=== PATIENT | male | born 1940 | race Caucasian/White ===

== ENCOUNTER 2018-08-21 19:53 | Inpatient (IN) | payer OTHER ==
--- NOTE | 2018-08-21 20:59 | PDOC ---
History of Present Illness - History of Present Illness Initial Comments: 78 year old brother ([facility] Prit[facility] order) with PMH of PVD, SD on ASA), chronic bilateral foot ulcers (being seen at wound care here), and previous GI bleed (s/p clipping) presenting with dark stools for the past day. Patient denies fevers, chills, nausea, vomiting, chest pain, abdominal pain, or other symptoms but knows that last time he had this type of bleeding in his stool, he had to have a transfusion ([facility] 03/03) when he had the GI bleed in the past. Denies fevers chills, nausea, vomiting, diarrhea, constipation, abdominal pain, or other symptoms. Dr. Galvez was made aware that he is coming in. 08/21/18 21:16 <Audie Bolanos - Last Filed: 08/21/18 22:20> <Eusebia Hinton - Last Filed: 09/04/18 20:24> - General Chief Complaint: Rectal Bleed Stated Complaint: RECTAL BLEEDING Time Seen by Provider: 08/21/18 20:58 Attending Attestation - Resident Resident Name: Audie Bolanos - ED Attending Attestation I have performed the following: I have examined & evaluated the patient, The case was reviewed & discussed with the resident, I agree w/resident's findings & plan, Exceptions are as noted - HPI HPI: 08/22/18 02:54 78 yo male presented with melena head ncat eyes pale sclera neck supple lungs cta b/l cvs tachycardia abd no rebound tenderness skin chronic ulcers on both heels neuro alert and conversant - Physicial Exam PE: 08/28/18 16:19 please see complete physical exam above <Eusebia Hinton - Last Filed: 09/04/18 20:24> Past History - Suicide/Smoking/Psychosocial Hx Smoking History: Former smoker Have you smoked in the past 12 months: No If you are a former smoker, when did you quit?: 30 years ago Information on smoking cessation initiated: No Hx Alcohol Use: Yes (Occasional) Drug/Substance Use Hx: No <Audie Bolanos - Last Filed: 08/21/18 22:20> <Eusebia Hinton - Last Filed: 09/04/18 20:24> - Past Medical History Allergies/Adverse Reactions: Allergies Allergy/AdvReac Type Severity Reaction Status Date / Time codeine Allergy Intermediate Verified 08/21/18 22:44 infliximab Allergy Verified 08/22/18 01:42 Home Medications: Ambulatory Orders Atorvastatin Ca [Lipitor] 40 mg PO HS 08/21/18 Diltiazem HCl [Diltiazem 24Hr ER] 120 mg PO DAILY 08/21/18 Duloxetine HCl 20 mg PO DAILY 08/21/18 Metoprolol Tartrate 25 mg PO DAILY 08/21/18 Ranitidine [Zantac -] 150 mg PO BID 08/21/18 Tamsulosin HCl 0.4 mg PO DAILY 08/21/18 Acetaminophen [Tylenol .Regular Strength -] 650 mg PO Q6H PRN tablet 08/31/18 Albuterol 2.5/Ipratropium 0.5 [Duoneb -] 1 amp NEB RQID amp 08/31/18 Collagenase Clostridium Hist. [Santyl -] 1 applic TP DAILY tube 08/31/18 Collagenase Clostridium Hist. [Santyl -] 1 applic TP DAILY tube 08/31/18 Diphenhydramine HCl [Benadryl Capsule -] 50 mg PO Q4H PRN capsule 08/31/18 Guaifenesin Dm [Mucinex Dm -] 1 tablet PO BID tab.er.12h 08/31/18 Hydrocortisone 1% Ointment [Hytone 1% Ointment -] 1 applic TP Q6H PRN tube Mag Hydrox/Al Hydrox/Simeth [Mylanta Oral Suspension -] 30 ml PO Q6HPO cup Pantoprazole Sodium [Protonix -] 40 mg PO BID 30 Days #60 tablet.ec 08/31/18 Pregabalin [Lyrica -] 50 mg PO BID 7 Days #14 capsule MDD 100 08/31/18 Review of Systems - Review of Systems Constitutional: No: Fever, Loss of Appetite, Malaise, Night Sweats HEENTM: No: Tearing, Recent change in vision, Double Vision, Cataracts Respiratory: No: Shortness of Breath, SOB with Exertion, SOB at Rest Cardiac (ROS): No: Edema, Irregular Heart Rate, Lightheadedness, Palpitations ABD/GI: No: Constipated, Diarrhea, Nausea : No: Burning, Dysuria Integumentary: No: Bruising, Change in Color Neurological: No: Headache, Numbness Psychiatric: No: Anxiety, Depression Hematologic/Lymphatic: Yes: Anemia, Easy Bleeding <Audie Bolanos - Last Filed: 08/21/18 22:20> *Physical Exam - Vital Signs Last Vital Signs Temp Pulse Resp BP Pulse Ox 98.1 F 119 H 18 127/55 L 97 08/21/18 19:53 08/21/18 19:53 08/21/18 19:53 08/21/18 19:53 08/21/18 19:53 - Physical Exam General Appearance: Yes: Nourished, Appropriately Dressed. No: Apparent Distress HEENT: positive: EOMI, VIVIAN, Normal ENT Inspection, Normal Voice Neck: positive: Trachea midline, Normal Thyroid, Supple. negative: Tender, Rigid Respiratory/Chest: positive: Lungs Clear, Normal Breath Sounds. negative: Chest Tender, Respiratory Distress, Accessory Muscle Use Cardiovascular: positive: Regular Rhythm, Regular Rate Gastrointestinal/Abdominal: positive: Normal Bowel Sounds, Flat, Soft. negative : Tender Rectal Exam: positive: normal rectal tone, melena Lymphatic: negative: Adenopathy, Tenderness Musculoskeletal: positive: Normal Inspection Extremity: positive: Normal Capillary Refill, Normal Inspection, Normal Range of Motion. negative: Tender Integumentary: positive: Normal Color, Dry, Warm Neurologic: positive: Fully Oriented, Alert, Normal Mood/Affect, Motor Strength 5/5 <Audie Bolanos - Last Filed: 08/21/18 22:20> - Vital Signs Last Vital Signs Temp Pulse Resp BP Pulse Ox 99.4 F 113 H 21 H 103/45 L 97 08/22/18 00:27 08/22/18 00:27 08/22/18 00:27 08/22/18 00:27 08/22/18 00:27 <Eusebia Hinton - Last Filed: 09/04/18 20:24> Moderate Sedation - Procedure Monitoring Vital Signs: Procedure Monitoring Vital Signs Temperature 98.1 F 08/21/18 19:53 Pulse Rate 119 H 08/21/18 19:53 Respiratory Rate 18 08/21/18 19:53 Blood Pressure 127/55 L 08/21/18 19:53 O2 Sat by Pulse Oximetry (%) 97 08/21/18 19:53 <Audie Bolanos - Last Filed: 08/21/18 22:20> - Procedure Monitoring Vital Signs: Procedure Monitoring Vital Signs Temperature 99.4 F 08/22/18 00:27 Pulse Rate 113 H 08/22/18 00:27 Respiratory Rate 21 H 08/22/18 00:27 Blood Pressure 103/45 L 08/22/18 00:27 O2 Sat by Pulse Oximetry (%) 97 08/22/18 00:27 <Eusebia Hinton - Last Filed: 09/04/18 20:24> ED Treatment Course - LABORATORY CBC & Chemistry Diagram: 08/21/18 21:38 08/21/18 21:38 <Audie Bolanos - Last Filed: 08/21/18 22:20> - LABORATORY CBC & Chemistry Diagram: 08/31/18 05:45 08/31/18 05:45 - ADDITIONAL ORDERS Additional order review: Laboratory Results 08/21/18 21:11 Stool Occult Blood Positive - Medications Given in the ED: ED Medications Discontinued Medications Generic Name Dose Route Start Last Admin Trade Name Gaurangq PRN Reason Stop Dose Admin Morphine Sulfate 4 mg 08/21/18 22:57 08/21/18 23:10 Morphine Injection - IVPUSH 08/21/18 22:58 4 mg ONCE ONE Administration Ondansetron HCl 4 mg 08/21/18 23:57 08/22/18 00:04 Zofran Injection IVPUSH 08/21/18 23:58 4 mg ONCE ONE Administration Pantoprazole Sodium 40 mg 08/21/18 22:09 08/21/18 22:24 Protonix Iv IVPUSH 08/21/18 22:10 40 mg ONCE ONE Administration <Eusebia Hinton - Last Filed: 09/04/18 20:24> Medical Decision Making - Medical Decision Making 78 year old male with PMH of GI bleed, PAD, PVD, and SD presenting with melena. His labs returned withsevere anemia. No BRBPR but patient is slightly tachcyardic. Will transfuse two untis and admit to ICU. I spoke to Dr. Galvez about the patient. Signed out to Dr. Stewart for ICU consult admission. <Audie Bolanos - Last Filed: 08/21/18 22:20> *DC/Admit/Observation/Transfer - Discharge Dispostion Decision to Admit order: Yes <Audie Bolanos - Last Filed: 08/21/18 22:20> - Discharge Dispostion Decision to Admit order: Yes <Eusebia Hinton - Last Filed: 09/04/18 20:24> Diagnosis at time of Disposition: Melena Anemia Qualifiers: Anemia type: unspecified type Qualified Code(s): D64.9 - Anemia, unspecified GI bleed Qualifiers: GI bleed type/associated pathology: melena Qualified Code(s): K92.1 - Melena - Discharge Dispostion Condition at time of disposition: Improved
[2018-08-21 21:53] LABS: BASO % 1.5 % (0-2.0); EOS % 1.6 % (0-4.5); LYMPH % 11.4 % (8-40); MCH 31.5 pg (25.7-33.7); MCHC 33.8 g/dl (32.0-35.9); MEAN CELL VOLUME 93.1 fl (80-96); MEAN PLT VOLUME 9.6 fl (7.5-11.1); MONO % 6.7 % (3.8-10.2); NEUT % 78.8 % (42.8-82.8); PLATELET COUNT 220 K/MM3 (134-434); RBC 1.87 M/mm3 (4.00-5.60); RDW 18.4 % (11.9-15.9); WHITE BLOOD COUNT 11.9 K/mm3 (4.0-10.0)
[2018-08-21 21:59] LABS: HEMOGLOBIN 5.9 GM/dL (11.7-16.9)
[2018-08-21 22:00] LABS: HEMATOCRIT 17.4 % (35.4-49)
[2018-08-21 22:04] LABS: INR 1.19 (0.83-1.09); PROTHROMBIN TIME (PATIENT) 14.1 SEC (9.7-13.0)
[2018-08-21] MEDS ORDERED: PANTOPRAZOLE SODIUM 40 MG VIAL IVPUSH ONE (22:09)
[2018-08-21] MEDS ORDERED: PANTOPRAZOLE SODIUM 40 MG/100 ML BAG IVPB ONE (22:20)
[2018-08-21] MEDS ORDERED: morphine CARPU-JECT 4 MG/1 ML DISP.SYRIN IVPUSH ONE (22:57)
[2018-08-21] MEDS ORDERED: SODIUM CHLORIDE 1,000 ML IV SCH (23:00)
[2018-08-21] MEDS ORDERED: PANTOPRAZOLE SODIUM 40 MG VIAL IVPUSH SCH (23:00)
[2018-08-21] MEDS ORDERED: morphine SULFATE 4 MG/ML VIAL ONE (23:08)
--- NOTE | 2018-08-21 23:20 | CONSULT ---
Consult Consult Specialty:: ICU Referred by:: Grace Reason for Consultation:: Hemodynamic monitoring, severe anemia - History of Present Illness Chief Complaint: melena, brbpr, chest pain History of Present Illness: 78 yr old man with HTN, PAD, presents with 2-3 days of melena and 1 BM with bright red blood mixed w/ melena approx 2pm 08/21. Also c/o substernal chest pain nonradiating without exacerbating or alleviating factors, a/w lightheadedness lasting 1 hr at 1AM 08/21. notes increased b/l LE edema, chronic lower back pain and chronic b/l foot wound pain. denies fevers, hemoptysis, cough, diarrhea, constipation, dysuria, changes in medications, dizziness, lightheadedness, palpitations. takes ASA 81mg daily, last taken 08/20. denies any other NSAID use. Pt was in [facility] for 6wks btwn Feb-Mar 2018 admitted for nonhealing left toe ulcer that required amputation, hospital course was complicated by drop in h/h and he was found to have bleed on upper endoscopy that required clipping, as per acquaintances at bedside. pt was on eliquis and plavix at that time, which was discontinued at [place]. Since that [place] he has not had any brbpr or melena until this week. was dc'd to [facility] for rehab, has been at home for 3 weeks in stable health. Surghx: left 5th toe amputation 2017, lumbar spinal fusion and laminectomy 2010 , femoral/popliteal revasc and stent placement in right leg 2011, possibly left leg stent in Mar 2018(pt and bedside acquaintances unsure), right hip replacement, carpal tunnel surgery, b/l cataract with IOL 2010, Pmhx: [place] in 1987, PAD, HTN, hx of UGI in mar 2018 requiring clipping, CAD, HLD, b/l leg neuropathy, depression, rotator cuff tear with impingement, osteoarthritis, fibromyalgia, psoriatic arthritis, rosacea, BPH, Soc: former smoker: quit in 2005, was 2pk/day for 20yrs, drinks 1 small glass of scotch nightly, denies illicit drug use. resides in [facility] Allergies: codiene, inflixamab, pt has a metal clip in his stomach and cannot have an MRI taken(ever) received flu vaccine for 2017 season, pneumonia vaccine in 10/2014 - Alcohol/Substance Use Hx Alcohol Use: Yes (Occasional) - Smoking History Smoking history: Former smoker Have you smoked in the past 12 months: No If you are a former smoker, when did you quit?: 30 years ago Home Medications - Allergies Allergies/Adverse Reactions: Allergies Allergy/AdvReac Type Severity Reaction Status Date / Time codeine Allergy Intermediate Verified 08/21/18 22:44 infliximab Allergy Verified 08/22/18 01:42 - Home Medications Home Medications: Ambulatory Orders Aspirin [ASA -] 81 mg PO DAILY 08/21/18 Atorvastatin Ca [Lipitor] 40 mg PO HS 08/21/18 Diltiazem HCl [Diltiazem ER] 120 mg PO DAILY 08/21/18 Duloxetine HCl 20 mg PO DAILY 08/21/18 Metoprolol Tartrate 25 mg PO DAILY 08/21/18 Pregabalin [Lyrica -] 50 mg PO DAILY 08/21/18 Ranitidine [Zantac -] 150 mg PO BID 08/21/18 Tamsulosin HCl 0.4 mg PO DAILY 08/21/18 Family Disease History - Family Disease History Family Disease History: Heart Disease: Father (brain cancer, heart attack at age 71, HTN), CA: Father Review of Systems - Review of Systems Constitutional: denies: Fever, Lethargy, Loss of Appetite, Unintentional Wgt. Loss, Weakness Eyes: reports: No Symptoms HENT: denies: Difficult Swallowing Neck: denies: Pain on Movement, Tenderness Cardiovascular: reports: Chest Pain, Edema. denies: Palpitations, Shortness of Breath Respiratory: denies: Cough, SOB on Exertion, Wheezing Gastrointestinal: reports: Abdominal Pain (epigastric), Melena, Rectal Bleeding. denies: Bloating, Constipation, Diarrhea, Nausea, Vomiting, Vomiting Blood Genitourinary: denies: Dysuria Musculoskeletal: reports: Back Pain Integumentary: reports: Lesions (foot ulcers) Neurological: denies: Confusion, Dizziness, Numbness Endocrine: reports: No Symptoms Hematology/Lymphatic: reports: No Symptoms Physical Exam Vital Signs: Vital Signs Temperature 98.1 F 08/21/18 19:53 Pulse Rate 119 H 08/21/18 19:53 Respiratory Rate 18 08/21/18 19:53 Blood Pressure 127/55 L 08/21/18 19:53 O2 Sat by Pulse Oximetry (%) 97 08/21/18 19:53 Constitutional: Yes: Calm (c/o lower back pain, unable to find comfortable position) Eyes: Yes: Conjunctiva Clear, EOM Intact, PERRL HENT: Yes: Atraumatic, Normocephalic Neck: Yes: Supple, Trachea Midline. No: Lymphadenopathy, Tenderness, Thyromegaly Cardiovascular: Yes: Regular Rate and Rhythm. No: Murmur Respiratory: Yes: Regular, CTA Bilaterally Gastrointestinal: Yes: Normal Bowel Sounds, Soft, Abdomen, Obese Musculoskeletal: Yes: Back Pain Extremities: Yes: Other (tender to palpation throughout b/l LE) Edema: Yes Edema: LLE: 3+ (upto knee), RLE: 3+ (upto knee) Wound/Incision: Yes: Other (left lateral heel with wound serous drainage, bright red ulcerated base. scant discharge at 5th toe amputation along incision , ttp. anterior medial left foot with superficial ulcer- no discharge. Right lateral heel with scant discharge with clean ulcerated base, ttp.(measurements in cm: rt heel 2x2.5x0.5, lft anterior 3x5, left amputation site 6x3, left lateral heel 4x2). stage 1 decubitus) Neurological: Yes: Alert, Oriented, Cran Nerves II-XII Intact Labs: CBC, BMP 08/21/18 21:38 08/21/18 21:38 Assessment/Plan 78 yr old man with HTN, PVD presents with melena and brbpr found to have severe anemia likely from GI bleed. upon admission to ICU pt had 100cc of emesis consistent with beef stew and carrots he had earlier - no blood, it relieved his epigastric pain. treated with 1 dose of zofran GI - concern for bleeding ulcer vs Dieulafoy lesion vs gastric varices Dr. Golden consulted NPO, no heparin, no ASA, protonix IVPUSH BID 2 units prbc's ordered in ED, will reevaluate for further blood products Cardio - tachycardia, hypotensive - likely due to severe anemia continous cardiac monitoring check ECG and troponin, mildy elevated likely demand ischemia hold home oral anti-HTN meds IVF NS @150cc/hr post-prbc transfusion Heme - normocytic anemia likely due to GI blood loss. ldh and anemia blood work ordered to further evaluate Integument daily wound care to b/l LE wounds Prophylaxis -VTE severe anemia, no medical AC - GI on protonix Activity - with assistance Pain control with IV meds until taking po, typically his pain is well controlled on lyrica 50mg HCP: Harvey Mensah([phone]) and Zhang Quinn([phone]) advanced directives in paperchart
[2018-08-21 23:21] LABS: ANISOCYTOSIS 1+
[2018-08-21 23:22] LABS: OVALOCYTE 1+; PLATELET ESTIMATE ADEQUATE
[2018-08-21] MEDS ORDERED: ONDANSETRON 4 MG/2 ML VIAL IVPUSH ONE (23:57)
[2018-08-22] MEDS ORDERED: BENZOIN/ALOE VERA/STORAX/TOLU 58 ML BOTTLE ONE (00:29)
[2018-08-22 00:53] LABS: ANION GAP 9 MMOL/L (8-16); BLOOD UREA NITROGEN 34 mg/dL (7-18); CALCIUM 7.8 mg/dL (8.5-10.1); CHLORIDE 108 mmol/L (98-107); CO2 26 mmol/L (21-32); GLUCOSE,RANDOM 121 mg/dL (74-106); POTASSIUM 3.6 mmol/L (3.5-5.1); SODIUM 142 mmol/L (136-145)
[2018-08-22] MEDS ORDERED: MORPHINE SULFATE 2 MG/ML VIAL IM ONE (02:50)
--- NOTE | 2018-08-22 03:09 | PDOC ---
Attending Attestation - Resident Resident Name: CiciZachdonte - ED Attending Attestation I have performed the following: I have examined & evaluated the patient, The case was reviewed & discussed with the resident, I agree w/resident's findings & plan, Exceptions are as noted - HPI HPI: 08/22/18 03:07 pale 78 yo male brought in for rectal bleeding pale sclera head ncat eyes lázaro eomi neck supple lungs cta b/l cvs [id number] abd protuberant,no rebound extremities: b/l heel ulcers,bandages heels skin edema neuro conversant,poor historian - Physicial Exam PE: 08/22/18 03:11 please see physical exam below - Medical Decision Making 08/22/18 03:11 imp RECTAL BLEEDING hct=17 pt to be transfused Dr Golden requested protonix gtt, bleeding scan in morning and IF he has significant worsening of hos bleeding, get an CTA abd/pel -do not give sc heparin and no aspirin pt admitted
[2018-08-22] MEDS ORDERED: MORPHINE SULFATE 2 MG/ML VIAL IVPUSH ONE ×2 (03:11→19:48)
[2018-08-22] MEDS ORDERED: PANTOPRAZOLE SODIUM 40 MG VIAL IVPUSH SCH (04:00)
[2018-08-22] MEDS ORDERED: SODIUM CHLORIDE 1,000 ML IV STA (05:03)
[2018-08-22] MEDS ORDERED: SODIUM CHLORIDE 500 ML IV STA (05:06)
[2018-08-22] MEDS ORDERED: SODIUM CHLORIDE 1,000 ML IV SCH (05:35)
[2018-08-22 06:52] LABS: BASO % 0.6 % (0-2.0); EOS % 3.1 % (0-4.5); HEMATOCRIT 17.2 % (35.4-49); LYMPH % 16.7 % (8-40); MCH 32.9 pg (25.7-33.7); MCHC 34.9 g/dl (32.0-35.9); MEAN CELL VOLUME 94.1 fl (80-96); MEAN PLT VOLUME 9.3 fl (7.5-11.1); MONO % 7.1 % (3.8-10.2); NEUT % 72.5 % (42.8-82.8); PLATELET COUNT 150 K/MM3 (134-434); RBC 1.82 M/mm3 (4.00-5.60); RDW 15.4 % (11.9-15.9); WHITE BLOOD COUNT 7.1 K/mm3 (4.0-10.0)
[2018-08-22] MEDS ORDERED: PT OWN MED DRAWER 7, Y5N ONE ×2 (07:09→21:11)
[2018-08-22 07:13] LABS: ALBUMIN 2.1 g/dl (3.4-5.0); ALK PHOS 72 U/L (45-117); ANION GAP 5 MMOL/L (8-16); BILIRUBIN,TOTAL 0.7 mg/dL (0.2-1); BLOOD UREA NITROGEN 33 mg/dL (7-18); CALCIUM 7.1 mg/dL (8.5-10.1); CHLORIDE 110 mmol/L (98-107); CO2 27 mmol/L (21-32); CREATININE 0.9 mg/dL (0.55-1.3); GLUCOSE,RANDOM 108 mg/dL (74-106); POTASSIUM 3.9 mmol/L (3.5-5.1); SGOT/AST 11 U/L (15-37); SGPT/ALT 10 U/L (13-61); SODIUM 143 mmol/L (136-145); TOT PROT 4.5 g/dl (6.4-8.2)
--- NOTE | 2018-08-22 07:53 | CON.GI ---
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) developed hematochezia along black stools yesterday. He also vomited up food but no blood.He denies any abdominal pain. He had bleeding previously at [facility] in the fall after undergoing R lower extremity stenting. This culminated in endoscopic endoclipping but he cannot provide details. He does drink 3 Scotch high balls nightly and takes ASA daily. His previous bleed was on Plavix. He has colon polyps removed remotely and his mother had a GI cancer resected. - History Source History Provided By: Patient Limitations to Obtaining History: Poor Historian - Past Medical History Cardio/Vascular: Yes: HTN, Hyperlip[place]ia, [place] ([facility], [place]), Other (Peripheral vascular disease with RLE stenting and previous bypass with foot ulcers) Gastrointestinal: Yes: GI Bleed (apparently had a transfusion requiring GI bleed at [facility] in the fall of 2017 that required endoclipping. 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 also cervical for spinal stenosis), Upper Endoscopy Additional Surgical History: RLE stenting 05/03. 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 Place of : [facility] History of Recent Travel: No Home Medications - Allergies Allergies/Adverse Reactions: Allergies Allergy/AdvReac Type Severity Reaction Status Date / Time codeine Allergy Intermediate Verified 08/21/18 22:44 infliximab Allergy Verified 08/22/18 01:42 - Home Medications Home Medications: Ambulatory Orders Aspirin [ASA -] 81 mg PO DAILY 08/21/18 Atorvastatin Ca [Lipitor] 40 mg PO HS 08/21/18 Diltiazem HCl [Diltiazem ER] 120 mg PO DAILY 08/21/18 Duloxetine HCl 20 mg PO DAILY 08/21/18 Metoprolol Tartrate 25 mg PO DAILY 08/21/18 Pregabalin [Lyrica -] 50 mg PO DAILY 08/21/18 Ranitidine [Zantac -] 150 mg PO BID 08/21/18 Tamsulosin HCl 0.4 mg PO DAILY 08/21/18 Family Disease History - Family Disease History Family Disease History: Heart Disease: Father (lung cancer, heart attack at age 71, HTN), CA: Father, Mother (GI cancer resected), Other: Sister (3 healthy sisters) Physical Exam-GI Vital Signs: Vital Signs Temperature 97.8 F 08/22/18 05:30 Pulse Rate 92 H 08/22/18 07:30 Respiratory Rate 17 08/22/18 07:30 Blood Pressure 99/48 L 08/22/18 07:30 O2 Sat by Pulse Oximetry (%) 98 08/22/18 07:30 CBC,CMP WBC 7.1 K/mm3 (4.0-10.0) 08/22/18 05:30 RBC 1.82 M/mm3 (4.00-5.60) L 08/22/18 05:30 Hgb 6.0 GM/dL (11.7-16.9) L* 08/22/18 05:30 Hct 17.2 % (35.4-49) L 08/22/18 05:30 MCV 94.1 fl (80-96) 08/22/18 05:30 MCH 32.9 pg (25.7-33.7) 08/22/18 05:30 MCHC 34.9 g/dl (32.0-35.9) 08/22/18 05:30 RDW 15.4 % (11.9-15.9) D 08/22/18 05:30 Plt Count 150 K/MM3 (134-434) D 08/22/18 05:30 MPV 9.3 fl (7.5-11.1) 08/22/18 05:30 Absolute Neuts (auto) 5.1 K/mm3 (1.5-8.0) 08/22/18 05:30 Total Counted 100 08/21/18 21:38 Neutrophils % 72.5 % (42.8-82.8) 08/22/18 05:30 Neutrophils % (Manual) 82.0 % (42.8-82.8) 08/21/18 21:38 Band Neutrophils % 1.0 % 08/21/18 21:38 Lymphocytes % 16.7 % (8-40) D 08/22/18 05:30 Lymphocytes % (Manual) 10.0 % (8-40) 08/21/18 21:38 Monocytes % 7.1 % (3.8-10.2) 08/22/18 05:30 Monocytes % (Manual) 5 % (3.8-10.2) 08/21/18 21:38 Eosinophils % 3.1 % (0-4.5) D 08/22/18 05:30 Eosinophils % (Manual) 1.0 % (0-4.5) 08/21/18 21:38 Basophils % 0.6 % (0-2.0) 08/22/18 05:30 Basophils % (Manual) 1.0 % (0-2.0) 08/21/18 21:38 Nucleated RBC % 0 % (0-0) 08/22/18 05:30 Differential Comment Man diff performed 08/21/18 21:38 Platelet Estimate Adequate 08/21/18 21:38 Platelet Comment Slide scanned. 08/21/18 21:38 Polychromasia 1+ 08/21/18 21:38 Poikilocytosis 1+ 08/21/18 21:38 Anisocytosis 1+ 08/21/18 21:38 Ovalocytes 1+ 08/21/18 21:38 Sodium 143 mmol/L (136-145) 08/22/18 05:30 Potassium 3.9 mmol/L (3.5-5.1) 08/22/18 05:30 Chloride 110 mmol/L (98-107) H 08/22/18 05:30 Carbon Dioxide 27 mmol/L (21-32) 08/22/18 05:30 Anion Gap 5 MMOL/L (8-16) L 08/22/18 05:30 BUN 33 mg/dL (7-18) H 08/22/18 05:30 Creatinine 0.9 mg/dL (0.55-1.3) 08/22/18 05:30 Creat Clearance w eGFR > 60 (>60) 08/22/18 05:30 Random Glucose 108 mg/dL (74-106) H 08/22/18 05:30 Calcium 7.1 mg/dL (8.5-10.1) L 08/22/18 05:30 Ferritin 68.3 ng/ml (8-388) 08/22/18 00:15 Total Bilirubin 0.7 mg/dL (0.2-1) 08/22/18 05:30 AST 11 U/L (15-37) L 08/22/18 05:30 ALT 10 U/L (13-61) L 08/22/18 05:30 Alkaline Phosphatase 72 U/L (45-117) 08/22/18 05:30 LD Total 105 U/L (87-246) 08/22/18 00:15 Creatine Kinase 37 U/L (26-308) 08/22/18 00:15 Troponin I 0.10 ng/ml (0.00-0.05) H 08/22/18 00:15 Total Protein 4.5 g/dl (6.4-8.2) L 08/22/18 05:30 Albumin 2.1 g/dl (3.4-5.0) L 08/22/18 05:30 Total Amylase Cancelled 08/21/18 21:38 Lipase Cancelled 08/21/18 21:38 Vitamin B12 331 pg/ml (193-986) 08/22/18 00:15 Serum Folate 18 ng/mL (3.1-17.5) H 08/22/18 00:15 Current Medications Generic Name Dose Route Start Last Admin Trade Name Freq PRN Reason Stop Dose Admin Chlorhexidine Gluconate 1 applic 08/22/18 22:00 Hibiclens For Decolonization - TP HS KENDY Sodium Chloride 1,000 mls @ 150 mls/hr 08/22/18 05:35 08/22/18 01:00 Normal Saline - IV 150 mls/hr ASDIR KENDY Administration Mupirocin 1 applic 08/22/18 10:00 Bactroban Ointment (For Decolonization) - NS 08/27/18 09:59 BID KENDY Pantoprazole Sodium 40 mg 08/22/18 04:00 08/22/18 03:52 Protonix Iv IVPUSH 40 mg BID KENDY Administration Constitutional: Yes: Calm, Other (pale) Eyes: Yes: Conjunctiva Clear HENT: Yes: Atraumatic Neck: Yes: Supple Cardiovascular: Yes: Regular Rate and Rhythm Respiratory: Yes: CTA Bilaterally Gastrointestinal Inspection: Yes: WNL ...Auscultate: Yes: Normoactive Bowel Sounds ...Palpate: Yes: Soft, Other (nontender) ...Rectal Exam: Yes: Guaiac Positive (loose black guaiac positive stool) Edema: Yes Edema: LLE: 2+, RLE: 2+ Integumentary: Yes: Venous Stasis Changes, Other (foot ulcers) Labs: CBC, BMP 08/22/18 05:30 08/22/18 05:30 INR, PTT INR 1.19 (0.83-1.09) H 08/21/18 21:38 Problem List - Problems (1) GI bleed Assessment/Plan: Not clear whether this is upper or lower GI bleeding but given melena and hematochezia. Given the failure for his Hb to significantly improve with transfusion of 2 units PRBCs workup will begin with a CTA which will also exclude a retroperitoneal hemorrhage and varices. I have proposed and discussed EGD and colonoscopy in detail with Bill including informing him of the potential for such complications as perforation and hemorrhage. He has granted informed consent for both which I have scheduled for Monday. This allows for stablilization today and bowel prep tomorrow. If CT reveals varices octreotide should be started. Will give continuous PPI infusion. Transfuse as needed. Discussed case with the residents on duty. Bleeding source include NSAID ulcers and/or gastritis, ischemic colitis, vascular ectasias, GERD, diverticuli, stercoral ulcer among others. Malignancy cannot be exlcuded. It would be helpful if the [facility] endoscopy data could be obtained. Code(s): K92.2 - GASTROINTESTINAL HEMORRHAGE, UNSPECIFIED Qualifiers: GI bleed type/associated pathology: melena Qualified Code(s): K92.1 - Melena (2) Vomiting Code(s): R11.10 - VOMITING, UNSPECIFIED (3) Peripheral vascular disease Code(s): I73.9 - PERIPHERAL VASCULAR DISEASE, UNSPECIFIED (4) Status post vascular bypass Code(s): Z95.828 - PRESENCE OF OTHER VASCULAR IMPLANTS AND GRAFTS (5) History of intravascular stent placement Code(s): Z95.828 - PRESENCE OF OTHER VASCULAR IMPLANTS AND GRAFTS (6) History of colon polyps Code(s): Z86.010 - PERSONAL HISTORY OF COLONIC POLYPS (7) Anemia Code(s): D64.9 - ANEMIA, UNSPECIFIED Qualifiers: Anemia type: unspecified type Qualified Code(s): D64.9 - Anemia, unspecified (8) Melena Code(s): K92.1 - MELENA Assessment/Plan Impression ;Suspect NSAID induced bleeding due to recurrent ulcer and/or gastritis but could alternatively be ischemic colitis, vascular ectasias, diverticular bleeding malignancy etc. Given his regular alcohol usage portal gastropathy and variceal bleeding are possible Plan: PPI drip Transfuse to Hb 8 CTA EGD and colonoscopy / Octreotide if varices are seen on CT Watch for DTs
[2018-08-22] MEDS: PANTOPRAZOLE SODIUM 80 MG in SODIUM CHLORIDE 100 ML IVPB SCH ×2 (09:32→20:30)
[2018-08-22] MEDS ORDERED: morphine SULFATE 4 MG/ML VIAL ONE (09:33)
[2018-08-22] MEDS: morphine SULFATE 4 MG/ML VIAL IVPUSH PRN ×2 (09:34→18:26)
[2018-08-22 09:43] LABS: BILIRUBIN,DIRECT 0.3 mg/dL (0.0-0.2)
[2018-08-22 09:46] LABS: ALBUMIN 2.6 g/dl (3.4-5.0); BILIRUBIN,DIRECT 0.3 mg/dL (0.0-0.2); BILIRUBIN,TOTAL 0.7 mg/dL (0.2-1); TOT PROT 5.2 g/dl (6.4-8.2)
[2018-08-22] MEDS: MUPIROCIN 2% TOPICAL OINTMENT FOR DECOLONIZATION NS SCH ×2 (10:25→21:12)
--- NOTE | 2018-08-22 11:38 | EKG ---
Test Reason : Blood Pressure : / mmHG Vent. Rate : 111 BPM Atrial Rate : 111 BPM P-R Int : 136 ms QRS Dur : 138 ms QT Int : 358 ms P-R-T Axes : 028 002 035 degrees QTc Int : 486 ms POOR DATA QUALITY, INTERPRETATION MAY BE ADVERSELY AFFECTED SINUS TACHYCARDIA RIGHT BUNDLE BRANCH BLOCK POSSIBLE INFERIOR INFARCT , AGE UNDETERMINED ABNORMAL ECG NO PREVIOUS ECGS AVAILABLE Confirmed by BRITTANI HARPER, MANNY ([id number]) on 08/22/2018 11:37:41 AM Referred By: Confirmed By:MANNY PETER MD
--- NOTE | 2018-08-22 11:38 | EKG ---
Test Reason : Blood Pressure : / mmHG Vent. Rate : 087 BPM Atrial Rate : 087 BPM P-R Int : 176 ms QRS Dur : 152 ms QT Int : 426 ms P-R-T Axes : 066 014 036 degrees QTc Int : 512 ms SINUS RHYTHM WITH PREMATURE ATRIAL COMPLEXES RIGHT BUNDLE BRANCH BLOCK POSSIBLE INFERIOR INFARCT (CITED ON OR BEFORE 21-AUG-2018) ABNORMAL ECG WHEN COMPARED WITH ECG OF 21-AUG-2018 23:01, PREMATURE ATRIAL COMPLEXES ARE NOW PRESENT Confirmed by BRITTANI HARPER, MANNY ([id number]) on 08/22/2018 11:37:53 AM Referred By: Radha TARIQ Confirmed By:MANNY PETER MD
--- NOTE | 2018-08-22 11:53 | PN ---
Progress Note (short form) - Note Progress Note: Patient seen and examined at bedside in ICU Hb 5.9-->6 after 2 units PRBCs for another 2 units PRBCs Denies nausea or vomiting at this time denies any further blood per rectum at this time Vital Signs Temperature 98.2 F 08/22/18 09:00 Pulse Rate 62 08/22/18 10:00 Respiratory Rate 15 08/22/18 10:00 Blood Pressure 97/52 L 08/22/18 10:00 O2 Sat by Pulse Oximetry (%) 98 08/22/18 07:30 PE: NAD Lying in bed AAOx3 Conjunctival Pallor RRR S1 S2 3/6 systolic murmur lungs CTAB anteriorly abdomen is soft non tender non distended 2+ pitting edema bilateral lower extremities Bilateral foot ulcers dressig C/D/I 08/21/18 08/21/18 08/21/18 21:38 21:38 21:38 WBC 11.9 H RBC 1.87 L Hgb 5.9 L* Hct 17.4 L MCV 93.1 MCHC 33.8 RDW 18.4 H Plt Count 220 Neutrophils % 78.8 Lymphocytes % 11.4 Monocytes % 6.7 Eosinophils % 1.6 Basophils % 1.5 INR 1.19 H Sodium Cancelled Potassium Cancelled Chloride Cancelled Carbon Dioxide Cancelled Anion Gap Cancelled BUN Cancelled Creatinine Cancelled Blood Type Antibody Screen 08/21/18 08/21/18 08/22/18 22:00 22:07 00:15 WBC RBC Hgb Hct MCV MCHC RDW Plt Count Neutrophils % Lymphocytes % Monocytes % Eosinophils % Basophils % INR Sodium 142 Potassium 3.6 Chloride 108 H Carbon Dioxide 26 Anion Gap 9 BUN 34 H Creatinine 1.0 Blood Type O POSITIVE O POSITIVE Antibody Screen Negative 08/22/18 08/22/18 05:30 05:30 WBC 7.1 RBC 1.82 L Hgb 6.0 L* Hct 17.2 L MCV 94.1 MCHC 34.9 RDW 15.4 D Plt Count 150 D Neutrophils % 72.5 Lymphocytes % 16.7 D Monocytes % 7.1 Eosinophils % 3.1 D Basophils % 0.6 INR Sodium 143 Potassium 3.9 Chloride 110 H Carbon Dioxide 27 Anion Gap 5 L BUN 33 H Creatinine 0.9 Blood Type Antibody Screen 78M history of HTN, HLD, PVD/PAD with bilateral lower extremity foot ulcers, BPH , and peripheral neuropathy, presents to the hospital with nausea, vomiting, and anemia secondary to hematochezia. Problem List: Hematochezia Normocytic Normochromic anemia-secondary to blood loss from GI bleed Nausea/vomiting HTN HLD PVD/PAD foot ulcers peripheral neuropathy BPH demand ischemia/troponinemia Plan: will get CTA abdomen and pelvis to see if a source of bleeding can be identified. Possible small bowel source. Will transfuse 2 units PRBCs now repeat CBC and transfuse as needed trend troponins trend EKG repeat Coags get ECHO get CXR 1/2 NS @ 50ml/hr after blood prodyucts to keep hydrated as he got IV contrast f/u GI-plan for bowel prep tomorrow and EGD/Colonoscopy on Monday Hold home meds at this time (ASA Lipitor Cardizem Duloxetine Metoprolol Lyrica Flomax Zantac) Protonix 40mg IV BID SCDs if tolerated Daily wound care to bilateral lower extremities Pain control Case Discussed with Dr. Roman CCTime 36 minutes HCP: Harvey Mensah([phone]) and Zhang Quinn([phone]) advanced directives in paperchart
--- NOTE | 2018-08-22 11:55 | PN ---
Teaching Attending Note Name of Resident: Solomon Garcia ATTENDING PHYSICIAN STATEMENT I saw and evaluated the patient. I reviewed the resident's note and discussed the case with the resident. I agree with the resident's findings and plan as documented. SUBJECTIVE: Pt seen and examined in the ICU. No acute bleeding overnight but remains anemic despite PRBC transfusions. CTA A/P read pending. Denies abdominal pain but with leg pain. OBJECTIVE: Vital Signs Period Temp Pulse Resp BP Sys/Denis Pulse Ox Last 24 Hr 97.8 F-99.4 F 62-119 15-21 93-127/45-89 97-98 Intake & Output 08/19/18 08/20/18 08/21/18 08/22/18 23:59 23:59 23:59 23:59 Intake Total 2200 Output Total 200 Balance 2000 Weight 99.79 kg 110.45 kg Gen: pale, mildly tachypneic Heart: RRR Lung: decreased breath sounds at the bases Abd: soft, nontender Ext: + edema CBC, BMP 08/22/18 05:30 08/22/18 05:30 Active Medications Chlorhexidine Gluconate (Hibiclens For Decolonization -) 1 applic TP HS KENDY Pantoprazole Sodium 80 mg/ (Sodium Chloride) 100 mls @ 10 mls/hr IVPB Q10H KENDY Last Admin: 08/22/18 09:32 Dose: 10 mls/hr Sodium Chloride (1/2 Normal Saline) 1,000 mls @ 50 mls/hr IV ASDIR KENDY Morphine Sulfate (Morphine Sulfate) 4 mg IVPUSH Q4H PRN PRN Reason: PAIN LEVEL 6-10 Last Admin: 08/22/18 09:34 Dose: 4 mg Mupirocin (Bactroban Ointment (For Decolonization) -) 1 applic NS BID KENDY Stop: 08/27/18 09:59 Last Admin: 08/22/18 10:25 Dose: Not Given ASSESSMENT AND PLAN: GI Bleed Acute Blood Loss Anemia CAD +Troponins likely Demand Ischemia PAD Hyperlipidemia - monitor H/H - transfuse as needed - protonix - f/u CTA read - GI f/u - IVF boluses as needed - echocardiogram - trend cardiac enzymes - pain control - NPO - DVT prophylaxis - continue ICU monitoring critical care time spent in reviewing chart, evaluating patient and formulating plan 35 min
[2018-08-22 15:05] LABS: HEMATOCRIT 22.9 % (35.4-49); HEMOGLOBIN 8.2 GM/dL (11.7-16.9); MCH 33.2 pg (25.7-33.7); MCHC 35.8 g/dl (32.0-35.9); MEAN CELL VOLUME 92.6 fl (80-96); MEAN PLT VOLUME 9.6 fl (7.5-11.1); PLATELET COUNT 163 K/MM3 (134-434); RBC 2.48 M/mm3 (4.00-5.60); RDW 14.8 % (11.9-15.9); WHITE BLOOD COUNT 8.9 K/mm3 (4.0-10.0)
--- NOTE | 2018-08-22 15:15 | ECHO ---
Name: RAYA MELGOZA Exam:Adult Echocardiogram Study Date: 08/22/2018 01:26 PM Age: 78 yrs Reason For Study: R/O CHF Height: 73 in Weight: 243 lb BSA: 2.3 m2 MMode/2D Measurements & Calculations IVSd: 0.93 cm Ao root diam: 3.3 cm LVIDd: 5.2 cm LVIDs: 3.5 cm LVPWd: 0.93 cm EDV(Teich): 132.3 ml TAPSE: 1.6 cm ESV(Teich): 50.9 ml Doppler Measurements & Calculations MV E max praveena: 86.4 cm/sec Ao V2 max: 183.2 cm/sec MV A max praveena: 84.4 cm/sec Ao max P.4 mmHg MV E/A: 1.0 Ao V2 mean: 139.0 cm/sec MV dec time: 0.14 sec Ao mean P.5 mmHg Ao V2 VTI: 41.1 cm LV V1 max P.8 mmHg TR max praveena: 194.1 cm/sec LV V1 mean P.3 mmHg TR max P.1 mmHg LV V1 max: 109.1 cm/sec LV V1 mean: 69.0 cm/sec LV V1 VTI: 22.4 cm Procedure A two-dimensional transthoracic echocardiogram with color flow and Doppler was performed. Left Ventricle The left ventricular size, thickness and function are normal. The left ventricular ejection fraction is normal. E/A reversal consistent with but not diagnostic of poor LV compliance. Regional wall motion abnormalities cannot be excluded due to limited visualization. Right Ventricle The right ventricle is not well visualized. Atria The left atrium is not well visualized. Right atrium not well visualized. Mitral Valve The mitral valve is not well visualized. There is no mitral valve stenosis. There is trace to mild mi tral regurgitation. Tricuspid Valve The tricuspid valve is not well visualized. There is no tricuspid stenosis. There is trace tricuspid regurgitation. Right ventricular systolic pressure is normal. Aortic Valve The aortic valve is not well visualized. No hemodynamically significant valvular aortic stenosis. No aortic regurgitation is present. Pulmonic Valve The pulmonic valve is not well visualized. Great Vessels The aortic root is normal size. Pericardium/Pleura There is no pericardial effusion. Interpretation Summary The left ventricular size, thickness and function are normal The tricuspid valve is not well visualized. There is no tricuspid stenosis. There is trace tricuspid regurgitation. Right ventricular systolic pressure is normal. The left atrium is not well visualized. Right atrium not well visualized. The mitral valve is not well visualized. The aortic valve is not well visualized. Regional wall motion abnormalities cannot be excluded due to limited visualization. The left ventricular ejection fraction is normal. E/A reversal consistent with but not diagnostic of poor LV compliance There is no mitral valve stenosis. There is trace to mild mitral regurgitation. MD Miky Chapman 08/22/2018 03:15 PM
[2018-08-22 15:27] LABS: INR 1.08 (0.83-1.09); PROTHROMBIN TIME (PATIENT) 12.8 SEC (9.7-13.0)
[2018-08-22 15:30] LABS: ACTIVATED PTT 29.5 SECONDS (25.2-36.5)
--- NOTE | 2018-08-22 16:08 | HP ---
Admitting History and Physical - Admission History of Present Illness: 78 year old brother (Birdie gomez) with PMH of PVD, NC on ASA), chronic bilateral foot ulcers (being seen at wound care here), and previous GI bleed (s/p clipping) presenting with dark stools for the past day. He is unable to say when stool began to change color. He reports being asymptomatic until day of admission when he became light headed and weak, he recognized as sx he had had previously when he had a GI bleed 02/2018. At that point he was transferred to ER Patient denies fevers, chills, nausea, vomiting, chest pain, abdominal pain, or other symptoms but knows that last time he had this type of bleeding in his stool, he had to have a transfusion ([facility] 03/03) when he had the GI bleed in the past. Denies fevers chills, nausea, vomiting, diarrhea, constipation, abdominal pain, or other symptoms. History Source: Patient, Family Member, Medical Record, Caregiver Limitations to Obtaining History: Poor Historian - Past Medical History Cardiovascular: Yes: HTN, Hyperlipdemia, NC (1987 [facility], [place]), Other (Peripheral vascular disease with RLE stenting and previous bypass with foot ulcers) Gastrointestinal: Yes: GI Bleed (apparently had a transfusion requiring GI bleed at [facility] in the fall of 2017 that required endoclipping. 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 also cervical for spinal stenosis), Upper Endoscopy - Advance Directives Advance Directives: Yes: Health Care Proxy, DNR - Smoking History Smoking history: Former smoker Have you smoked in the past 12 months: No If you are a former smoker, when did you quit?: 2005 - Alcohol/Substance Use Hx Alcohol Use: Yes (s Scotch highballs nightly) - Social History ADL: Support Services Occupation: [employer] Brother History of Recent Travel: No Home Medications - Allergies Allergies/Adverse Reactions: Allergies Allergy/AdvReac Type Severity Reaction Status Date / Time codeine Allergy Intermediate Verified 08/21/18 22:44 infliximab Allergy Verified 08/22/18 01:42 - Home Medications Home Medications: Ambulatory Orders Aspirin [ASA -] 81 mg PO DAILY 08/21/18 Atorvastatin Ca [Lipitor] 40 mg PO HS 08/21/18 Diltiazem HCl [Diltiazem ER] 120 mg PO DAILY 08/21/18 Duloxetine HCl 20 mg PO DAILY 08/21/18 Metoprolol Tartrate 25 mg PO DAILY 08/21/18 Pregabalin [Lyrica -] 50 mg PO DAILY 08/21/18 Ranitidine [Zantac -] 150 mg PO BID 08/21/18 Tamsulosin HCl 0.4 mg PO DAILY 08/21/18 Family Disease History - Family Disease History Family Disease History: Heart Disease: Father (lung cancer, heart attack at age 71, HTN), CA: Father, Mother (GI cancer resected), Other: Sister (3 healthy sisters) Review of Systems - Review of Systems Constitutional: reports: Weakness. denies: Chills, Diaphoresis, Fever, Lethargy Eyes: reports: No Symptoms HENT: reports: No Symptoms Neck: reports: No Symptoms Cardiovascular: denies: Chest Pain, Palpitations, Shortness of Breath Respiratory: denies: Cough, Hemoptysis, SOB Gastrointestinal: denies: Abdominal Pain, Constipation Genitourinary: reports: No Symptoms Breasts: reports: No Symptoms Reported Musculoskeletal: reports: No Symptoms Integumentary: reports: No Symptoms Neurological: reports: No Symptoms Endocrine: reports: No Symptoms Hematology/Lymphatic: reports: No Symptoms Psychiatric: reports: No Symptoms Physical Examination Vital Signs: Vital Signs Temperature 98.2 F 08/22/18 09:00 Pulse Rate 65 08/22/18 14:00 Respiratory Rate 17 08/22/18 14:00 Blood Pressure 100/54 L 08/22/18 14:00 O2 Sat by Pulse Oximetry (%) 98 08/22/18 07:30 Constitutional: Yes: Well Nourished, Calm, Obese Eyes: Yes: Conjunctiva Clear, EOM Intact HENT: Yes: Atraumatic, Normocephalic Neck: Yes: Supple, Trachea Midline Cardiovascular: Yes: Regular Rate and Rhythm, Tachycardia Respiratory: Yes: Regular, CTA Bilaterally Gastrointestinal: Yes: Normal Bowel Sounds, Soft, Abdomen, Obese ...Rectal Exam: Yes: Guaiac Positive (per admission) Renal/: Yes: WNL Breast(s): Yes: WNL Musculoskeletal: Yes: WNL, Back Pain, Joint Stiffness, Muscle Pain Extremities: Yes: WNL Edema: No Edema: LLE: Trace, RLE: Trace Peripheral Pulses WNL: Yes Peripheral Pulses: Left Doralis Pedis: 1+, Right Dorsalis Pedis: 1+ Wound/Incision: Yes: Dressing Dry and Intact (bilat dry dressing to both feet) Neurological: Yes: Alert, Oriented Psychiatric: Yes: Alert, Oriented Labs: CBC, BMP 08/22/18 14:10 08/22/18 05:30 Problem List - Problems (1) Obesity (BMI 30-39.9) Code(s): E66.9 - OBESITY, UNSPECIFIED (2) Anemia Code(s): D64.9 - ANEMIA, UNSPECIFIED Qualifiers: Anemia type: unspecified type Qualified Code(s): D64.9 - Anemia, unspecified (3) GI bleed Code(s): K92.2 - GASTROINTESTINAL HEMORRHAGE, UNSPECIFIED Qualifiers: GI bleed type/associated pathology: melena Qualified Code(s): K92.1 - Melena (4) History of colon polyps Code(s): Z86.010 - PERSONAL HISTORY OF COLONIC POLYPS (5) History of intravascular stent placement Code(s): Z95.828 - PRESENCE OF OTHER VASCULAR IMPLANTS AND GRAFTS (6) Peripheral vascular disease Code(s): I73.9 - PERIPHERAL VASCULAR DISEASE, UNSPECIFIED
--- NOTE | 2018-08-22 16:19 | PN ---
Progress Note (short form) - Note Progress Note: patient seen and examined in ICU ortegaelmira Kenny and True at bedside - case discussed with them s/p CT abd / pelvis results pending receiving 4th unit of PRBC last Hgb 6 ( s/p 2 units pRBC) Intake & Output 08/19/18 08/20/18 08/21/18 08/22/18 23:59 23:59 23:59 23:59 Intake Total 2200 Output Total 700 Balance 1500 Weight 220 lb 243 lb Vital Signs Period Temp Pulse Resp BP Sys/Denis Pulse Ox Last 24 Hr 97.8 F-99.4 F 61-119 15-21 93-127/45-89 97-98 sitting up in bed in mild - mod distress 2/2 to pain to LE denies abdominal pain neck supple heart S1/S2 hr 110 lungs clear ant / laterally abdomen obese soft no tenderness elicited BS + X 4 Q Ext LE bilat dressing to feet + trace edema CBC, BMP 08/22/18 14:10 08/22/18 05:30 s/p 4 units pRBC Active Medications Chlorhexidine Gluconate (Hibiclens For Decolonization -) 1 applic TP HS KENDY Pantoprazole Sodium 80 mg/ (Sodium Chloride) 100 mls @ 10 mls/hr IVPB Q10H KENDY Last Admin: 08/22/18 09:32 Dose: 10 mls/hr Sodium Chloride (1/2 Normal Saline) 1,000 mls @ 50 mls/hr IV ASDIR KENDY Morphine Sulfate (Morphine Sulfate) 4 mg IVPUSH Q4H PRN PRN Reason: PAIN LEVEL 6-10 Last Admin: 08/22/18 09:34 Dose: 4 mg Mupirocin (Bactroban Ointment (For Decolonization) -) 1 applic NS BID KENDY Stop: 08/27/18 09:59 Last Admin: 08/22/18 10:25 Dose: Not Given reviewed CT of abd/ pelvis case discussed with Dr Golden /Dr Roman / and house staff ASSESSMENT AND PLAN: #GI Bleed transfuse to hgb>8 - trend h/h PPi BID GI consult appreciated FFP # CAD elevated TNI - demand ischemia likely trend TNI - follow EKG cardio consult - # PVD / PAD not on a/c prior to admission previous GI bleed 02/2018 patient was on Plavix / Eliquis - these where discontinued after that admission Had only been on asa Care to LE --wound and dressing care patient was attending wound center as out patient Problem List - Problems (1) Obesity (BMI 30-39.9) Code(s): E66.9 - OBESITY, UNSPECIFIED (2) Anemia Code(s): D64.9 - ANEMIA, UNSPECIFIED Qualifiers: Anemia type: unspecified type Qualified Code(s): D64.9 - Anemia, unspecified (3) GI bleed Code(s): K92.2 - GASTROINTESTINAL HEMORRHAGE, UNSPECIFIED Qualifiers: GI bleed type/associated pathology: melena Qualified Code(s): K92.1 - Melena (4) History of colon polyps Code(s): Z86.010 - PERSONAL HISTORY OF COLONIC POLYPS (5) History of intravascular stent placement Code(s): Z95.828 - PRESENCE OF OTHER VASCULAR IMPLANTS AND GRAFTS (6) Peripheral vascular disease Code(s): I73.9 - PERIPHERAL VASCULAR DISEASE, UNSPECIFIED
[2018-08-22] MEDS: SODIUM CHLORIDE 0.45% 1,000 ML IV SCH (17:30)
[2018-08-22] MEDS: CHLORHEXIDINE GLUCONATE 4% CLEANSER FOR DECOLONIZATION TP SCH (21:14)
--- NOTE | 2018-08-22 21:38 | CONSULT ---
Consult Consult Specialty:: General Surgery Reason for Consultation:: GI Bleed - History of Present Illness Chief Complaint: blleding per rectum History of Present Illness: 78 yo male PMH, PVD, DE on ASA, chronic bilateral foot ulcers, EtOH previous GI bleed (s/p clipping) presenting with dark stools for the past day. He is unable to say when stool began to change color. He reports being asymptomatic until day of admission when he became light headed and weak, he recognized as sx he had had previously when he had a GI bleed 02/2018. At that point he was transferred to ER. Patient denies fevers, chills, nausea, vomiting, chest pain, abdominal pain, or other symptoms but knows that last time he had this type of bleeding in his stool, he had to have a transfusion ([facility] 03/03) when he had the GI bleed in the past. Denies fevers chills, nausea, vomiting, diarrhea, constipation, abdominal pain, or other symptoms. We were asked to assess. - History Source History Provided By: Patient, Medical Record Limitations to Obtaining History: No Limitations - Past Medical History Cardio/Vascular: Yes: HTN, Hyperlipdemia, DE (1987 [facility], [place], [place]), Other (Peripheral vascular disease with RLE stenting and previous bypass with foot ulcers) Gastrointestinal: Yes: GI Bleed (apparently had a transfusion requiring GI bleed at [facility] in the fall of 2017 that required endoclipping. 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 also cervical for spinal stenosis), Upper Endoscopy Additional Surgical History: RLE stenting 05/03. 2011 RLE fem-pop bypass - Alcohol/Substance Use Hx Alcohol Use: Yes (Occasional) - Smoking History Smoking history: Former smoker Have you smoked in the past 12 months: No If you are a former smoker, when did you quit?: 30 years ago - Social History Usual Living Arrangement: Other ([facility] assisted living) ADL: Support Services Occupation: [employer] History of Recent Travel: No Home Medications - Allergies Allergies/Adverse Reactions: Allergies Allergy/AdvReac Type Severity Reaction Status Date / Time codeine Allergy Intermediate Verified 08/21/18 22:44 infliximab Allergy Verified 08/22/18 01:42 - Home Medications Home Medications: Ambulatory Orders Aspirin [ASA -] 81 mg PO DAILY 08/21/18 Atorvastatin Ca [Lipitor] 40 mg PO HS 08/21/18 Diltiazem HCl [Diltiazem ER] 120 mg PO DAILY 08/21/18 Duloxetine HCl 20 mg PO DAILY 08/21/18 Metoprolol Tartrate 25 mg PO DAILY 08/21/18 Pregabalin [Lyrica -] 50 mg PO DAILY 08/21/18 Ranitidine [Zantac -] 150 mg PO BID 08/21/18 Tamsulosin HCl 0.4 mg PO DAILY 08/21/18 Family Disease History - Family Disease History Family Disease History: Heart Disease: Father (brain cancer, heart attack at age 71, HTN), CA: Father, Mother (GI cancer resected), Other: Sister (3 healthy sisters) Review of Systems - Review of Systems Constitutional: denies: Chills, Fever Eyes: denies: Blind Spots, Recent Change in Vision HENT: denies: Difficult Swallowing, Throat Pain Neck: denies: Decreased ROM Cardiovascular: denies: Chest Pain, Palpitations Respiratory: denies: Cough, SOB Gastrointestinal: denies: Abdominal Pain, Nausea Genitourinary: denies: Burning, Flank Pain, Testicular Pain Breasts: reports: No Symptoms Reported. denies: Pain Musculoskeletal: denies: Back Pain, Joint Swelling Integumentary: reports: Lesions, Wound. denies: Incision Neurological: denies: Syncope Endocrine: denies: Unexplained Weight Gain, Unexplained Weight Loss Hematology/Lymphatic: denies: Easily Bruised, Excessive Bleeding Psychiatric: denies: Anxiety, Depression Physical Exam Vital Signs: Vital Signs Temperature 98 F 08/22/18 20:00 Pulse Rate 77 08/22/18 20:47 Respiratory Rate 18 08/22/18 20:47 Blood Pressure 102/49 L 08/22/18 20:47 O2 Sat by Pulse Oximetry (%) 98 08/22/18 19:37 Vital Signs Period Temp Pulse Resp BP Sys/Denis Pulse Ox Last 24 Hr 98 F-99.1 F 59-90 12-23 95-121/44-91 98-98 Intake & Output 08/22/18 08/23/18 08/23/18 23:59 07:59 15:59 Intake Total 1977 790 Output Total 600 Balance 1377 790 Weight 245 lb 6 oz Intake: IV 500 200 1/2 Normal Saline 1,000 50 200 ml @ 50 mls/hr IV ASDIR KENDY Rx#:[id number] Normal Saline - 1,000 ml 450 @ 150 mls/hr IV ASDIR KENDY Rx#:[id number] IVPB 260 240 Packed Cells 700 350 Fresh Frozen Plasma 517 Output: Urine 600 Void 600 Other: Voiding Method Urinal Urinal # Unmeasured Voids External Catheter 2 Void 2 2 Bowel Movement No No No Weight Measurement Method Built in [facility] Constitutional: Yes: Well Nourished, No Distress, Calm, Obese Eyes: Yes: Conjunctiva Clear, EOM Intact HENT: Yes: Atraumatic, Normocephalic Neck: Yes: Supple, Trachea Midline Cardiovascular: Yes: Regular Rate and Rhythm, S1, S2 Respiratory: Yes: Regular, CTA Bilaterally, Cough Gastrointestinal: Yes: Normal Bowel Sounds, Soft, Abdomen, Obese. No: Hepatomegaly, Hernia, Tenderness, Tenderness, Epigastrium, Tenderness, Rebound ...Rectal Exam: Yes: Guaiac Positive, Sphincter Tone Normal Renal/: No: CVA Tenderness - Left, CVA Tenderness - Right Extremities: Yes: Amputation (left small toe). No: Cool, Cyanosis Edema: No Peripheral Pulses WNL: Yes Integumentary: Yes: Pressure Ulcer, Venous Stasis Changes. No: Jaundice Neurological: Yes: Alert, Confusion. No: Oriented Psychiatric: Yes: Alert. No: Oriented Labs: CBC, BMP 08/22/18 14:10 08/22/18 05:30 CBC,CMP WBC 7.9 K/mm3 (4.0-10.0) 08/23/18 05:30 RBC 2.56 M/mm3 (4.00-5.60) L 08/23/18 05:30 Hgb 8.3 GM/dL (11.7-16.9) L 08/23/18 05:30 Hct 23.6 % (35.4-49) L D 08/23/18 05:30 MCV 92.3 fl (80-96) 08/23/18 05:30 MCH 32.6 pg (25.7-33.7) 08/23/18 05:30 MCHC 35.4 g/dl (32.0-35.9) 08/23/18 05:30 RDW 15.1 % (11.9-15.9) 08/23/18 05:30 Plt Count 145 K/MM3 (134-434) 08/23/18 05:30 MPV 9.4 fl (7.5-11.1) 08/23/18 05:30 Absolute Neuts (auto) 5.8 K/mm3 (1.5-8.0) 08/22/18 21:10 Total Counted 100 08/21/18 21:38 Neutrophils % 73.2 % (42.8-82.8) 08/22/18 21:10 Neutrophils % (Manual) 82.0 % (42.8-82.8) 08/21/18 21:38 Band Neutrophils % 1.0 % 08/21/18 21:38 Lymphocytes % 13.5 % (8-40) 08/22/18 21:10 Lymphocytes % (Manual) 10.0 % (8-40) 08/21/18 21:38 Monocytes % 6.6 % (3.8-10.2) 08/22/18 21:10 Monocytes % (Manual) 5 % (3.8-10.2) 08/21/18 21:38 Eosinophils % 6.3 % (0-4.5) H D 08/22/18 21:10 Eosinophils % (Manual) 1.0 % (0-4.5) 08/21/18 21:38 Basophils % 0.4 % (0-2.0) 08/22/18 21:10 Basophils % (Manual) 1.0 % (0-2.0) 08/21/18 21:38 Nucleated RBC % 0 % (0-0) 08/22/18 21:10 Differential Comment Man diff performed 08/21/18 21:38 Platelet Estimate Adequate 08/21/18 21:38 Platelet Comment Slide scanned. 08/21/18 21:38 Polychromasia 1+ 08/21/18 21:38 Poikilocytosis 1+ 08/21/18 21:38 Anisocytosis 1+ 08/21/18 21:38 Ovalocytes 1+ 08/21/18 21:38 Sodium 144 mmol/L (136-145) 08/23/18 05:30 Potassium 3.8 mmol/L (3.5-5.1) 08/23/18 05:30 Chloride 111 mmol/L (98-107) H 08/23/18 05:30 Carbon Dioxide 27 mmol/L (21-32) 08/23/18 05:30 Anion Gap 6 MMOL/L (8-16) L 08/23/18 05:30 BUN 19 mg/dL (7-18) H 08/23/18 05:30 Creatinine 0.9 mg/dL (0.55-1.3) 08/23/18 05:30 Creat Clearance w eGFR > 60 (>60) 08/23/18 05:30 Random Glucose 90 mg/dL (74-106) 08/23/18 05:30 Calcium 8.2 mg/dL (8.5-10.1) L 08/23/18 05:30 Phosphorus 3.7 mg/dL (2.5-4.9) 08/23/18 05:30 Magnesium 2.1 mg/dL (1.8-2.4) 08/23/18 05:30 Iron 66 ug/dL (38-169) 08/22/18 00:15 TIBC 232 ug/dL (250-450) L 08/22/18 00:15 Iron Saturation 28 % (15-55) 08/22/18 00:15 Ferritin 68.3 ng/ml (8-388) 08/22/18 00:15 Total Bilirubin 1.4 mg/dL (0.2-1) H 08/23/18 05:30 Direct Bilirubin 0.3 mg/dL (0.0-0.2) H 08/22/18 05:30 AST 13 U/L (15-37) L 08/23/18 05:30 ALT 10 U/L (13-61) L 08/23/18 05:30 Alkaline Phosphatase 77 U/L (45-117) 08/23/18 05:30 LD Total 105 U/L (87-246) 08/22/18 00:15 Creatine Kinase 37 U/L (26-308) 08/22/18 00:15 Troponin I 0.44 ng/ml (0.00-0.05) H 08/23/18 05:30 Total Protein 4.8 g/dl (6.4-8.2) L 08/23/18 05:30 Albumin 2.4 g/dl (3.4-5.0) L 08/23/18 05:30 Total Amylase Cancelled 08/21/18 21:38 Lipase Cancelled 08/21/18 21:38 Vitamin B12 331 pg/ml (193-986) 08/22/18 00:15 Serum Folate 18 ng/mL (3.1-17.5) H 08/22/18 00:15 INR, PTT INR 1.06 (0.83-1.09) 08/23/18 05:30 Imaging - Results Chest X-ray: Report Reviewed (no acute findings), Image Reviewed Cat Scan: Report Reviewed (no blush in the bowel identified), Image Reviewed EKG: Report Reviewed (some acute changes), Image Reviewed Problem List - Problems (1) Melena Assessment/Plan: 78yo male with MMP, non-localized, likely UGIB, requiring 5 units PRBCs. No addition bloody BM reported, CTA shows no intraluminal contrast blush. Tim Class B (7 points, based on Bili, albumin, INR, no ascites or encephalopathy) 30% mortality. MELD 8 (1.9% estimated 3-month mortality). Agree with GI plan for localization of bleed. Will follow. Monitored Setting NPO and IVF resuscitation Serial CBC Transfuse as indicated by hemodynamics GI consult for endoscopic localization of source Consider Tagged RBC scan, if bleeding restarts DT prophylaxsis This patient is critically ill. Time spent reviewing chart, examining patient, talking with providers and/or family and documentation is 45 minutes. Thank you for the opportunity to participate in the care of this patient. Code(s): K92.1 - MELENA (2) Anemia Code(s): D64.9 - ANEMIA, UNSPECIFIED Qualifiers: Anemia type: unspecified type Qualified Code(s): D64.9 - Anemia, unspecified (3) GI bleed Code(s): K92.2 - GASTROINTESTINAL HEMORRHAGE, UNSPECIFIED Qualifiers: GI bleed type/associated pathology: melena Qualified Code(s): K92.1 - Melena (4) History of intravascular stent placement Code(s): Z95.828 - PRESENCE OF OTHER VASCULAR IMPLANTS AND GRAFTS (5) Obesity (BMI 30-39.9) Code(s): E66.9 - OBESITY, UNSPECIFIED (6) Peripheral vascular disease Code(s): I73.9 - PERIPHERAL VASCULAR DISEASE, UNSPECIFIED (7) Vomiting Code(s): R11.10 - VOMITING, UNSPECIFIED
[2018-08-22 22:03] LABS: BASO % 0.4 % (0-2.0); EOS % 6.3 % (0-4.5); HEMATOCRIT 20.4 % (35.4-49); HEMOGLOBIN 7.3 GM/dL (11.7-16.9); LYMPH % 13.5 % (8-40); MCHC 35.6 g/dl (32.0-35.9); MEAN CELL VOLUME 92.9 fl (80-96); MEAN PLT VOLUME 9.1 fl (7.5-11.1); MONO % 6.6 % (3.8-10.2); NEUT % 73.2 % (42.8-82.8); PLATELET COUNT 148 K/MM3 (134-434); RDW 15.1 % (11.9-15.9); WHITE BLOOD COUNT 7.9 K/mm3 (4.0-10.0)
[2018-08-23 06:22] LABS: HEMATOCRIT 23.6 % (35.4-49); HEMOGLOBIN 8.3 GM/dL (11.7-16.9); MCH 32.6 pg (25.7-33.7); MCHC 35.4 g/dl (32.0-35.9); MEAN CELL VOLUME 92.3 fl (80-96); MEAN PLT VOLUME 9.4 fl (7.5-11.1); PLATELET COUNT 145 K/MM3 (134-434); RBC 2.56 M/mm3 (4.00-5.60); RDW 15.1 % (11.9-15.9); WHITE BLOOD COUNT 7.9 K/mm3 (4.0-10.0)
[2018-08-23 06:43] LABS: INR 1.06 (0.83-1.09); PROTHROMBIN TIME (PATIENT) 12.5 SEC (9.7-13.0)
[2018-08-23] MEDS: PANTOPRAZOLE SODIUM 80 MG in SODIUM CHLORIDE 100 ML IVPB SCH ×2 (06:44→17:30)
[2018-08-23 06:46] LABS: ACTIVATED PTT 27.3 SECONDS (25.2-36.5)
[2018-08-23 08:06] LABS: SERUM IRON SATURATION 28 % (15-55); TOTAL IRON BINDING CAPACITY 232 ug/dL (250-450); UIBC 166 ug/dL (111-343)
[2018-08-23] MEDS ORDERED: CALCIUM GLUCONATE 10% - 1,000 MG/10 ML VIAL IVPB ONE (08:15)
[2018-08-23 08:32] LABS: ALBUMIN 2.4 g/dl (3.4-5.0); ALK PHOS 77 U/L (45-117); ANION GAP 6 MMOL/L (8-16); BILIRUBIN,TOTAL 1.4 mg/dL (0.2-1); BLOOD UREA NITROGEN 19 mg/dL (7-18); CALCIUM 8.2 mg/dL (8.5-10.1); CHLORIDE 111 mmol/L (98-107); CO2 27 mmol/L (21-32); CREATININE 0.9 mg/dL (0.55-1.3); GLUCOSE,RANDOM 90 mg/dL (74-106); MAGNESIUM 2.1 mg/dL (1.8-2.4); PHOSPHOROUS 3.7 mg/dL (2.5-4.9); POTASSIUM 3.8 mmol/L (3.5-5.1); SGOT/AST 13 U/L (15-37); SGPT/ALT 10 U/L (13-61); SODIUM 144 mmol/L (136-145); TOT PROT 4.8 g/dl (6.4-8.2)
[2018-08-23] MEDS: MUPIROCIN 2% TOPICAL OINTMENT FOR DECOLONIZATION NS SCH ×2 (09:24→21:53)
[2018-08-23] MEDS: morphine SULFATE 4 MG/ML VIAL IVPUSH PRN ×2 (09:51→19:29)
--- NOTE | 2018-08-23 10:45 | PN ---
Teaching Attending Note Name of Resident: Margaret Yo ATTENDING PHYSICIAN STATEMENT I saw and evaluated the patient. I reviewed the resident's note and discussed the case with the resident. I agree with the resident's findings and plan as documented. SUBJECTIVE: Pt seen and examined in the ICU. Transfused 5 units PRBC, 2 units FFP so far. CTA preliminary report without active bleed. Denies abdominal pain, nausea, vomiting. OBJECTIVE: Vital Signs Period Temp Pulse Resp BP Sys/Ednis Pulse Ox Last 24 Hr 98 F-99.1 F 59-90 12-23 95-121/44-91 98-98 Intake & Output 08/20/18 08/21/18 08/22/18 08/23/18 23:59 23:59 23:59 23:59 Intake Total 4177 790 Output Total 1300 Balance 2877 790 Weight 99.79 kg 110.223 kg 111.3 kg Gen: NAD at rest Heart: RRR Lung: decreased breath sounds at the bases Abd: soft, nontender Ext: + edema CBC, BMP 08/23/18 05:30 08/23/18 05:30 Active Medications Chlorhexidine Gluconate (Hibiclens For Decolonization -) 1 applic TP HS [facility] Last Admin: 08/22/18 21:14 Dose: 1 applic Pantoprazole Sodium 80 mg/ (Sodium Chloride) 100 mls @ 10 mls/hr IVPB Q10H [facility] Last Admin: 08/23/18 06:44 Dose: Not Given Sodium Chloride (1/2 Normal Saline) 1,000 mls @ 50 mls/hr IV ASDIR [facility] Last Admin: 08/22/18 17:30 Dose: 50 mls/hr Morphine Sulfate (Morphine Sulfate) 4 mg IVPUSH Q4H PRN PRN Reason: PAIN LEVEL 6-10 Last Admin: 08/23/18 09:51 Dose: 4 mg Mupirocin (Bactroban Ointment (For Decolonization) -) 1 applic NS BID [facility] Stop: 08/27/18 09:59 Last Admin: 08/23/18 09:24 Dose: 1 applic ASSESSMENT AND PLAN: GI Bleed Acute Blood Loss Anemia CAD +Troponins likely Demand Ischemia PAD Hyperlipidemia - monitor H/H - transfuse as needed - protonix - f/u official CTA read - GI f/u - IVF boluses as needed - pain control - NPO - DVT prophylaxis - continue ICU monitoring critical care time spent in reviewing chart, evaluating patient and formulating plan 35 min
--- NOTE | 2018-08-23 11:15 | PN ---
Progress Note (short form) - Note Progress Note: SUBJECTIVE Patient seen and examined at the bedside. Still complaining of leg pain and being cold, but no abdominal pain. OBJECTIVE Vital Signs Temperature 99.1 F 08/23/18 10:00 Pulse Rate 59 L 08/23/18 10:00 Respiratory Rate 14 08/23/18 10:00 Blood Pressure 95/46 L 08/23/18 10:00 O2 Sat by Pulse Oximetry (%) 98 08/23/18 09:00 General: Awake, alert, and fully oriented, in no acute distress Head: No signs of trauma Eyes: EOMI, sclera anicteric ENT: Dry mucus membranes Neck: Normal ROM, supple Lungs: Lungs clear, Normal breath sounds Cardio: Regular rhythm, S1 and S2 present Abdomen: Soft, nontender. No guarding, no rebound, no masses Extremities: Normal range of motion, Distal pulses present SKIN: Bilateral foot ulcers with dressings Neurologic: Cranial nerves II through XII grossly intact. Normal speech ASSESSMENT 78yo M with history of GI bleed, PAD/PVD, SC, CAD, HTN/HLD, osteoarthritis, fibromyalgia, BPH presenting with melena and found to have low hemoglobin of 5.9. HOD #3 PLAN CV Anemia, normocytic normochromic secondary to GI bleed Elevated Tpn, downtrended -Follow H/H, hgb=8.3 -Given total of 5 PRBC, 2 FFP -ECHO 08/22 GI GI bleed -CTA abdomen/pelvis 08/23/18 without findings of acute hemorrhage on preliminary report -Colonoscopy and EGD planned for Monday -Protonix ggt -GI following EXTREMITIES BLE wounds PAD/PVD -daily wound care -pain control with morphine FEN 1/2NS @50cc/hr Follow electrolytes, replete as needed NPO PPX SCD's Protonix ggt Disposition: Continue to monitor in the ICU
[2018-08-23] MEDS: SODIUM CHLORIDE 0.45% 1,000 ML IV SCH (12:00)
--- NOTE | 2018-08-23 15:56 | PN ---
Progress Note, Physician Chief Complaint: GIB History of Present Illness: 78 yo male PMH, PVD, [place] on ASA, chronic bilateral foot ulcers, EtOH previous GI bleed (s/p clipping) presenting with dark stools for the past day. He is unable to say when stool began to change color. He reports being asymptomatic until day of admission when he became light headed and weak, he recognized as sx he had had previously when he had a GI bleed 02/2018. stable after 5units. taknig bowel prep now - Current Medication List Current Medications: Active Medications Chlorhexidine Gluconate (Hibiclens For Decolonization -) 1 applic TP HS [facility] Last Admin: 08/22/18 21:14 Dose: 1 applic Collagenase (Santyl -) 1 applic TP DAILY [facility]END[facility]; Protocol Collagenase (Santyl -) 1 applic TP DAILY KENDY; Protocol Pantoprazole Sodium 80 mg/ (Sodium Chloride) 100 mls @ 10 mls/hr IVPB Q10H [facility] Last Admin: 08/23/18 06:44 Dose: Not Given Sodium Chloride (1/2 Normal Saline) 1,000 mls @ 50 mls/hr IV ASDIR KENDY Last Admin: 08/23/18 12:00 Dose: Not Given Morphine Sulfate (Morphine Sulfate) 4 mg IVPUSH Q4H PRN PRN Reason: PAIN LEVEL 6-10 Last Admin: 08/23/18 09:51 Dose: 4 mg Mupirocin (Bactroban Ointment (For Decolonization) -) 1 applic NS BID [facility] Stop: 08/27/18 09:59 Last Admin: 08/23/18 09:24 Dose: 1 applic - Objective Vital Signs: Vital Signs Temperature 98.1 F 08/23/18 14:00 Pulse Rate 65 08/23/18 14:00 Respiratory Rate 15 08/23/18 14:00 Blood Pressure 110/53 L 08/23/18 14:00 O2 Sat by Pulse Oximetry (%) 98 08/23/18 10:00 Constitutional: Yes: No Distress, Calm, Obese Eyes: Yes: Conjunctiva Clear, EOM Intact HENT: Yes: Atraumatic, Normocephalic Neck: Yes: Supple, Trachea Midline Cardiovascular: Yes: Regular Rate and Rhythm, S1, S2 Respiratory: Yes: Regular, CTA Bilaterally. No: SOB Gastrointestinal: Yes: Normal Bowel Sounds, Soft, Abdomen, Obese. No: Hepatomegaly, Tenderness, Tenderness, Epigastrium, Tenderness, Rebound ...Rectal Exam: Yes: Deferred Genitourinary: No: CVA Tenderness - Left, CVA Tenderness - Right Breast(s): Yes: Gynecomastia Musculoskeletal: No: Muscle Pain, Muscle Weakness Extremities: No: Cool, Cyanosis Edema: No Peripheral Pulses WNL: Yes Peripheral Pulses: Left Doralis Pedis: 1+, Right Dorsalis Pedis: 1+ Integumentary: Yes: Venous Stasis Changes. No: Jaundice Neurological: Yes: Alert, Confusion. No: Oriented Psychiatric: Yes: Alert. No: Oriented Labs: CBC, BMP 08/23/18 05:30 08/23/18 05:30 INR, PTT INR 1.06 (0.83-1.09) 08/23/18 05:30 Problem List - Problems (1) Melena Assessment/Plan: 78yo male with MMP, non-localized, likely UGIB, requiring 5 units PRBCs. No addition bloody BM reported, CTA shows no intraluminal contrast blush. Tim Class B (7 points, based on Bili, albumin, INR, no ascites or encephalopathy) 30% mortality. MELD 8 (1.9% estimated 3-month mortality). Agree with GI plan for localization of bleed. Will follow. Monitored Setting NPO and IVF resuscitation Serial CBC Transfuse as indicated by hemodynamics GI consult for endoscopic localization of source Consider Tagged RBC scan, if bleeding restarts DT prophylaxsis This patient is critically ill. Time spent reviewing chart, examining patient, talking with providers and/or family and documentation is 35 minutes. Code(s): K92.1 - MELENA (2) Anemia Code(s): D64.9 - ANEMIA, UNSPECIFIED Qualifiers: Anemia type: unspecified type Qualified Code(s): D64.9 - Anemia, unspecified (3) GI bleed Code(s): K92.2 - GASTROINTESTINAL HEMORRHAGE, UNSPECIFIED Qualifiers: GI bleed type/associated pathology: melena Qualified Code(s): K92.1 - Melena (4) History of intravascular stent placement Code(s): Z95.828 - PRESENCE OF OTHER VASCULAR IMPLANTS AND GRAFTS (5) Obesity (BMI 30-39.9) Code(s): E66.9 - OBESITY, UNSPECIFIED (6) Peripheral vascular disease Code(s): I73.9 - PERIPHERAL VASCULAR DISEASE, UNSPECIFIED (7) Vomiting Code(s): R11.10 - VOMITING, UNSPECIFIED
[2018-08-23] MEDS ORDERED: POLYETHYLENE GLYCOL 3350 255 GM BTL PO ONE (16:33)
[2018-08-23] MEDS: COLLAGENASE CLOSTRIDIUM HIST. 30 GRAMS TUBE TP SCH ×2 (17:22→17:23)
--- NOTE | 2018-08-23 17:50 | PN ---
Progress Note (short form) - Note Progress Note: patient seen and examined in ICU received 5 unit of PRBC / 2 FFP Intake & Output 08/20/18 08/21/18 08/22/18 08/23/18 23:59 23:59 23:59 23:59 Intake Total 4177 940 Output Total 1300 Balance 2877 940 Weight 220 lb 243 lb 245 lb 6 oz Vital Signs Period Temp Pulse Resp BP Sys/Denis Pulse Ox Last 24 Hr 98 F-99.1 F 59-90 12-23 91-121/44-91 98-98 sitting up in bed in mild - mod distress 2/2 to pain to LE denies abdominal pain neck supple heart S1/S2 hr 110 lungs clear ant / laterally abdomen obese soft no tenderness elicited BS + X 4 Q Ext LE bilat dressing to feet + trace edema CBC, BMP 08/23/18 05:30 08/23/18 05:30 s/p 5 units PRBC CBC, BMP 08/22/18 14:10 08/22/18 05:30 s/p 4 units pRBC Active Medications Chlorhexidine Gluconate (Hibiclens For Decolonization -) 1 applic TP HS [facility] Last Admin: 08/22/18 21:14 Dose: 1 applic Collagenase (Santyl -) 1 applic TP DAILY [facility]; Protocol Last Admin: 08/23/18 17:22 Dose: 1 applic Collagenase (Santyl -) 1 applic TP DAILY [facility]; Protocol Last Admin: 08/23/18 17:23 Dose: 1 applic Pantoprazole Sodium 80 mg/ (Sodium Chloride) 100 mls @ 10 mls/hr IVPB Q10H [facility] Last Admin: 08/23/18 06:44 Dose: Not Given Sodium Chloride (1/2 Normal Saline) 1,000 mls @ 50 mls/hr IV ASDIR [facility] Last Admin: 08/23/18 12:00 Dose: Not Given Morphine Sulfate (Morphine Sulfate) 4 mg IVPUSH Q4H PRN PRN Reason: PAIN LEVEL 6-10 Last Admin: 08/23/18 09:51 Dose: 4 mg Mupirocin (Bactroban Ointment (For Decolonization) -) 1 applic NS BID [facility] Stop: 08/27/18 09:59 Last Admin: 08/23/18 09:24 Dose: [address] of abd/ pelvis ASSESSMENT AND PLAN: #GI Bleed transfuse to keep hgb>8 - trend h/h PPi BID GI consult appreciated / surgical consult appreciated # CAD elevated TNI - demand ischemia likely trend TNI - follow EKG cardio consult - # PVD / PAD not on a/c prior to admission previous GI bleed 02/2018 patient was on Plavix / Eliquis - these where discontinued after that admission Had only been on asa Care to LE --wound and dressing care patient was attending wound center as out patient Problem List - Problems (1) Obesity (BMI 30-39.9) Code(s): E66.9 - OBESITY, UNSPECIFIED (2) Anemia Code(s): D64.9 - ANEMIA, UNSPECIFIED Qualifiers: Anemia type: unspecified type Qualified Code(s): D64.9 - Anemia, unspecified (3) GI bleed Code(s): K92.2 - GASTROINTESTINAL HEMORRHAGE, UNSPECIFIED Qualifiers: GI bleed type/associated pathology: melena Qualified Code(s): K92.1 - Melena (4) History of colon polyps Code(s): Z86.010 - PERSONAL HISTORY OF COLONIC POLYPS (5) History of intravascular stent placement Code(s): Z95.828 - PRESENCE OF OTHER VASCULAR IMPLANTS AND GRAFTS (6) Peripheral vascular disease Code(s): I73.9 - PERIPHERAL VASCULAR DISEASE, UNSPECIFIED
[2018-08-23] MEDS ORDERED: THIAMINE HCL 200 MG/2 ML VIAL IM ONE (19:34)
[2018-08-23] MEDS ORDERED: FOLIC ACID 5 MG/1 ML SQ ONE (19:34)
[2018-08-23] MEDS ORDERED: BISACODYL 5 MG TABLET.DR (FP) PO ONE (21:00)
[2018-08-23] MEDS: CHLORHEXIDINE GLUCONATE 4% CLEANSER FOR DECOLONIZATION TP SCH (21:53)
[2018-08-23 21:55] LABS: BASO % 0.3 % (0-2.0); EOS % 6.1 % (0-4.5); HEMATOCRIT 25.8 % (35.4-49); HEMOGLOBIN 9.1 GM/dL (11.7-16.9); LYMPH % 9.5 % (8-40); MCH 33.2 pg (25.7-33.7); MCHC 35.2 g/dl (32.0-35.9); MEAN CELL VOLUME 94.5 fl (80-96); MEAN PLT VOLUME 9.8 fl (7.5-11.1); MONO % 5.9 % (3.8-10.2); NEUT % 78.2 % (42.8-82.8); PLATELET COUNT 156 K/MM3 (134-434); RBC 2.73 M/mm3 (4.00-5.60); RDW 15.8 % (11.9-15.9)
--- NOTE | 2018-08-23 23:31 | PN ---
GI Progress Note Subjective: GI Note: Only usp through [employer] and no BMs so far. May not be prepped adequately enough to have colonoscopy but will proceed with at least the EGD. Has no pain or overt bleeding. CTA reveals no bleed. GB distended but wall is not thickened - Objective Vital Signs: Vital Signs Temperature 98.6 F 08/23/18 17:44 Pulse Rate 81 08/23/18 20:00 Respiratory Rate 16 08/23/18 20:00 Blood Pressure 105/53 L 08/23/18 20:00 O2 Sat by Pulse Oximetry (%) 98 08/23/18 20:31 Laboratory Tests 08/21/18 08/23/18 08/23/18 21:38 05:30 21:00 Hgb 5.9 L* 9.1 L Potassium 3.8 BUN 19 H Creatinine 0.9 Constitutional: Calm ...Auscultate: Yes: Normoactive Bowel Sounds ...Palpate: Yes: Soft, Other (nontender) Labs: CBC, BMP 08/23/18 21:00 08/23/18 05:30 INR, PTT INR 1.06 (0.83-1.09) 08/23/18 05:30 Assessment/Plan Impression ;Suspect NSAID induced bleeding due to recurrent ulcer and/or gastritis but could alternatively be ischemic colitis, vascular ectasias, diverticular bleeding malignancy etc. Given his regular alcohol usage portal gastropathy and variceal bleeding are possible Plan: PPI drip EGD and colonoscopy 08/24 Watch for DTs Problem List - Problems (1) GI bleed Code(s): K92.2 - GASTROINTESTINAL HEMORRHAGE, UNSPECIFIED Qualifiers: GI bleed type/associated pathology: melena Qualified Code(s): K92.1 - Melena (2) Vomiting Code(s): R11.10 - VOMITING, UNSPECIFIED (3) Peripheral vascular disease Code(s): I73.9 - PERIPHERAL VASCULAR DISEASE, UNSPECIFIED (4) Status post vascular bypass Code(s): Z95.828 - PRESENCE OF OTHER VASCULAR IMPLANTS AND GRAFTS (5) History of intravascular stent placement Code(s): Z95.828 - PRESENCE OF OTHER VASCULAR IMPLANTS AND GRAFTS (6) History of colon polyps Code(s): Z86.010 - PERSONAL HISTORY OF COLONIC POLYPS (7) Anemia Code(s): D64.9 - ANEMIA, UNSPECIFIED Qualifiers: Anemia type: unspecified type Qualified Code(s): D64.9 - Anemia, unspecified (8) Melena Code(s): K92.1 - MELENA
[2018-08-24 06:25] LABS: BASO % 0.3 % (0-2.0); HEMATOCRIT 23.6 % (35.4-49); HEMOGLOBIN 8.2 GM/dL (11.7-16.9); LYMPH % 10.1 % (8-40); MCH 32.5 pg (25.7-33.7); MCHC 34.6 g/dl (32.0-35.9); MEAN CELL VOLUME 93.8 fl (80-96); MEAN PLT VOLUME 9.5 fl (7.5-11.1); MONO % 6.2 % (3.8-10.2); NEUT % 77.4 % (42.8-82.8); PLATELET COUNT 150 K/MM3 (134-434); RBC 2.52 M/mm3 (4.00-5.60); RDW 15.9 % (11.9-15.9); WHITE BLOOD COUNT 7.4 K/mm3 (4.0-10.0)
[2018-08-24 06:47] LABS: INR 1.13 (0.83-1.09); PROTHROMBIN TIME (PATIENT) 13.4 SEC (9.7-13.0)
[2018-08-24 06:50] LABS: ACTIVATED PTT 30.3 SECONDS (25.2-36.5)
[2018-08-24 07:04] LABS: ALBUMIN 2.4 g/dl (3.4-5.0); ALK PHOS 81 U/L (45-117); ANION GAP 7 MMOL/L (8-16); BILIRUBIN,TOTAL 1.6 mg/dL (0.2-1); BLOOD UREA NITROGEN 15 mg/dL (7-18); CALCIUM 7.9 mg/dL (8.5-10.1); CHLORIDE 107 mmol/L (98-107); CO2 26 mmol/L (21-32); CREATININE 0.8 mg/dL (0.55-1.3); GLUCOSE,RANDOM 82 mg/dL (74-106); PHOSPHOROUS 3.8 mg/dL (2.5-4.9); POTASSIUM 3.7 mmol/L (3.5-5.1); SGOT/AST 17 U/L (15-37); SGPT/ALT 10 U/L (13-61); SODIUM 140 mmol/L (136-145); TOT PROT 4.8 g/dl (6.4-8.2)
[2018-08-24] MEDS: MUPIROCIN 2% TOPICAL OINTMENT FOR DECOLONIZATION NS SCH ×2 (10:07→21:02)
[2018-08-24] MEDS: COLLAGENASE CLOSTRIDIUM HIST. 30 GRAMS TUBE TP SCH ×2 (10:08)
[2018-08-24] MEDS ORDERED: BISACODYL 10 MG SUPP.RECT RC ONE (11:29)
--- NOTE | 2018-08-24 12:02 | PN ---
Teaching Attending Note Name of Resident: Margaret Yo ATTENDING PHYSICIAN STATEMENT I saw and evaluated the patient. I reviewed the resident's note and discussed the case with the resident. I agree with the resident's findings and plan as documented. SUBJECTIVE: Patient seen and examined in the ICU. Still with fluctuations in H&H despite multiple transfusions. Dark stools persists. Will be having endoscopic evaluation. OBJECTIVE: Intake & Output 08/21/18 08/22/18 08/23/18 08/24/18 23:59 23:59 23:59 23:59 Intake Total 4177 2560 720 Output Total 1300 Balance 2877 2560 720 Weight 220 lb 243 lb 245 lb 6 oz 247 lb 5.738 oz Last Vital Signs Temp Pulse Resp BP Pulse Ox 98.0 F 72 22 H 117/58 L 98 08/24/18 10:00 08/24/18 10:00 08/24/18 10:00 08/24/18 10:00 08/24/18 07:51 Active Medications Chlorhexidine Gluconate (Hibiclens For Decolonization -) 1 applic TP HS KENDY Last Admin: 08/23/18 21:53 Dose: 1 applic Collagenase (Santyl -) 1 applic TP DAILY KENDY; Protocol Last Admin: 08/24/18 10:08 Dose: 1 applic Collagenase (Santyl -) 1 applic TP DAILY KENDY; Protocol Last Admin: 08/24/18 10:08 Dose: Not Given Pantoprazole Sodium 80 mg/ (Sodium Chloride) 100 mls @ 10 mls/hr IVPB Q10H KENDY Last Admin: 08/23/18 17:30 Dose: 10 mls/hr Sodium Chloride (1/2 Normal Saline) 1,000 mls @ 50 mls/hr IV ASDIR KENDY Last Admin: 08/23/18 12:00 Dose: Not Given Morphine Sulfate (Morphine Sulfate) 4 mg IVPUSH Q4H PRN PRN Reason: PAIN LEVEL 6-10 Last Admin: 08/23/18 19:29 Dose: 4 mg Mupirocin (Bactroban Ointment (For Decolonization) -) 1 applic NS BID KENDY Stop: 08/27/18 09:59 Last Admin: 08/24/18 10:07 Dose: 1 applic Gen: NAD at rest Heart: RRR Lung: decreased breath sounds at the bases Abd: soft, nontender Ext: + edema Laboratory Results - last 24 hr 08/23/18 08/24/18 08/24/18 21:00 05:30 05:30 WBC 8.0 7.4 RBC 2.73 L 2.52 L Hgb 9.1 L 8.2 L Hct 25.8 L 23.6 L MCV 94.5 93.8 MCH 33.2 32.5 MCHC 35.2 34.6 RDW 15.8 15.9 Plt Count 156 150 MPV 9.8 9.5 Absolute Neuts (auto) 6.3 5.7 Neutrophils % 78.2 77.4 Lymphocytes % 9.5 D 10.1 Monocytes % 5.9 6.2 Eosinophils % 6.1 H 6.0 H Basophils % 0.3 0.3 Nucleated RBC % 0 0 PT with INR 13.40 H INR 1.13 H PTT (Actin FS) 30.3 Sodium Potassium Chloride Carbon Dioxide Anion Gap BUN Creatinine Creat Clearance w eGFR Random Glucose Calcium Phosphorus Magnesium Total Bilirubin AST ALT Alkaline Phosphatase Total Protein Albumin 08/24/18 05:30 WBC RBC Hgb Hct MCV MCH MCHC RDW Plt Count MPV Absolute Neuts (auto) Neutrophils % Lymphocytes % Monocytes % Eosinophils % Basophils % Nucleated RBC % PT with INR INR PTT (Actin FS) Sodium 140 Potassium 3.7 Chloride 107 Carbon Dioxide 26 Anion Gap 7 L BUN 15 Creatinine 0.8 Creat Clearance w eGFR > 60 Random Glucose 82 Calcium 7.9 L Phosphorus 3.8 Magnesium 2.0 Total Bilirubin 1.6 H AST 17 ALT 10 L Alkaline Phosphatase 81 Total Protein 4.8 L Albumin 2.4 L ASSESSMENT AND PLAN: GI Bleed Acute Blood Loss Anemia CAD +Troponins likely Demand Ischemia PAD Hyperlipidemia - monitor H/H - transfuse as needed - protonix - f/u official CTA read - GI f/u - IVF boluses as needed - pain control - NPO - DVT prophylaxis - continue ICU monitoring due to continued bleeding Dr Reyes critical care time spent in reviewing chart, evaluating patient and formulating plan 35 min
[2018-08-24] MEDS: PANTOPRAZOLE SODIUM 80 MG in SODIUM CHLORIDE 100 ML IVPB SCH (12:40)
[2018-08-24] MEDS: SODIUM CHLORIDE 0.45% 1,000 ML IV SCH (12:41)
--- NOTE | 2018-08-24 12:52 | PN ---
Progress Note (short form) - Note Progress Note: 78 y/o male found lying in bed. Reports that he had BM and pain in LEs. Vital Signs Period Temp Pulse Resp BP Sys/Denis Pulse Ox Last 24 Hr 98.0 F-98.8 F 65-88 15-24 91-123/47-95 98-98 CBC, BMP 08/24/18 05:30 08/24/18 05:30 HEENT- Normocephalic Neck- Supple Lungs- CTAB Heart- S1/S2 Abd- obese, soft, nt Ext- B/L LE edema Dsgs intact Active Medications Chlorhexidine Gluconate (Hibiclens For Decolonization -) 1 applic TP HS KENDY Last Admin: 08/23/18 21:53 Dose: 1 applic Collagenase (Santyl -) 1 applic TP DAILY KENDY; Protocol Last Admin: 08/24/18 10:08 Dose: 1 applic Collagenase (Santyl -) 1 applic TP DAILY KENDY; Protocol Last Admin: 08/24/18 10:08 Dose: Not Given Pantoprazole Sodium 80 mg/ (Sodium Chloride) 100 mls @ 10 mls/hr IVPB Q10H KENDY Last Admin: 08/24/18 12:40 Dose: 10 mls/hr Sodium Chloride (1/2 Normal Saline) 1,000 mls @ 50 mls/hr IV ASDIR KENDY Last Admin: 08/24/18 12:41 Dose: Not Given Morphine Sulfate (Morphine Sulfate) 4 mg IVPUSH Q4H PRN PRN Reason: PAIN LEVEL 6-10 Last Admin: 08/23/18 19:29 Dose: 4 mg Mupirocin (Bactroban Ointment (For Decolonization) -) 1 applic NS BID KENDY Stop: 08/27/18 09:59 Last Admin: 08/24/18 10:07 Dose: 1 applic ASSESSMENT AND PLAN: #GI Bleed EGD/ Colonoscopy today trend h/h IV PPI # CAD elevated TNI - demand ischemia likely trend TNI - follow EKG cardio consult - # PVD / PAD not on a/c prior to admission Local wound care to B/L [facility] Problem List - Problems (1) Obesity (BMI 30-39.9) Code(s): E66.9 - OBESITY, UNSPECIFIED (2) Anemia Code(s): D64.9 - ANEMIA, UNSPECIFIED Qualifiers: Anemia type: unspecified type Qualified Code(s): D64.9 - Anemia, unspecified (3) GI bleed Code(s): K92.2 - GASTROINTESTINAL HEMORRHAGE, UNSPECIFIED Qualifiers: GI bleed type/associated pathology: melena Qualified Code(s): K92.1 - Melena (4) History of colon polyps Code(s): Z86.010 - PERSONAL HISTORY OF COLONIC POLYPS (5) History of intravascular stent placement Code(s): Z95.828 - PRESENCE OF OTHER VASCULAR IMPLANTS AND GRAFTS (6) Peripheral vascular disease Code(s): I73.9 - PERIPHERAL VASCULAR DISEASE, UNSPECIFIED
--- NOTE | 2018-08-24 13:42 | PN ---
Progress Note (short form) - Note Progress Note: SUBJECTIVE Patient seen and examined at the bedside. No abdominal pain, but leg pain still present. Bowel regiment started yesterday. OBJECTIVE Vital Signs Temperature 99.1 F 08/24/18 13:00 Pulse Rate 74 08/24/18 13:00 Respiratory Rate 18 08/24/18 13:00 Blood Pressure 136/55 L 08/24/18 13:00 O2 Sat by Pulse Oximetry (%) 98 08/24/18 07:51 General: Awake, alert, and fully oriented, in no acute distress Head: No signs of trauma Eyes: EOMI, sclera anicteric ENT: Dry mucus membranes Neck: Normal ROM, supple Lungs: Lungs clear, Normal breath sounds Cardio: Regular rhythm, S1 and S2 present Abdomen: Soft, nontender. No guarding, no rebound, no masses Extremities: Normal range of motion, Distal pulses present SKIN: Bilateral foot ulcers with dressings Neurologic: Cranial nerves II through XII grossly intact. Normal speech ASSESSMENT 78yo M with history of GI bleed, PAD/PVD, LA, CAD, HTN/HLD, osteoarthritis, fibromyalgia, BPH presenting with melena and found to have low hemoglobin of 5.9. HOD #4 PLAN CV Anemia, normocytic normochromic secondary to GI bleed Elevated Tpn, downtrended -Follow H/H, hgb=8.2 -Given total of 5 PRBC, 2 FFP -ECHO 08/22 GI GI bleed -CTA abdomen/pelvis 08/23/18 without findings of acute hemorrhage on preliminary report -Colonoscopy and EGD planned for today depending on level of bowel prep -Protonix ggt -GI following EXTREMITIES BLE wounds PAD/PVD -daily wound care -pain control with morphine FEN 1/2NS @50cc/hr Follow electrolytes, replete as needed NPO PPX Patient not able to tolerate SCD's, no VTE due to suspected GI bleed Protonix ggt Disposition: Continue to monitor in the ICU
--- NOTE | 2018-08-24 16:49 | CONSULT ---
- Consultation REQUESTING PROVIDER: CONSULT REQUEST: We have been asked to surgically evaluate this patient for ( foot ulcers). PCP:Karena Galvez MD HISTORY OF PRESENT ILLNESS: 78 y/o brother ([employer]) w/ PMHx PVD, AR, chronic bilateral foot ulcers (being seen at wound care here), and previous GI bleed (s/p clipping ) now admitted with dark, found to have duodenal ulcer and diverticulosis, s/p 5 units pRBC and 2 FFP. Vascular consulted for b/l heel ulcers. Pt reports he moved into a NH a few months back as he was no longer able to get around. Believes the ulcers may have happened there as he is minimally ambulatory ( ambulates 1-2 times per day with walker and assistance due to weakness/unsteady gait). Reports prior history of LE angioplasty and stent a few years back at with Vascular Surgeon in [place]. Reports he has not follow up in a while as he was told that there was "nothing more they could do to improve his circulation". Currently doing daily dressing changes with Santyl. Reports pain at site of heel ulcers R>>L. Has prior history of tobacco abuse, 2ppd, quit in 1997. 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 Denies sxs of rest pain. PMHx: as above PSHx: Yes: Amputation (left 5th toe), Colonoscopy, Joint Replacement ( Right THR), Laminectomy (lumbar laminectomy and fusion, ? also cervical for spinal stenosis), Upper Endoscopy Home Medications Medication Instructions Recorded Aspirin [ASA -] 81 mg PO DAILY 08/21/18 Atorvastatin Ca [Lipitor] 40 mg PO HS 08/21/18 Diltiazem HCl [Diltiazem ER] 120 mg PO DAILY 08/21/18 Duloxetine HCl 20 mg PO DAILY 08/21/18 Metoprolol Tartrate 25 mg PO DAILY 08/21/18 Pregabalin [Lyrica -] 50 mg PO DAILY 08/21/18 Ranitidine [Zantac -] 150 mg PO BID 08/21/18 Tamsulosin HCl 0.4 mg PO DAILY 08/21/18 Allergies Allergy/AdvReac Type Severity Reaction Status Date / Time codeine Allergy Intermediate Verified 08/21/18 22:44 infliximab Allergy Verified 08/22/18 01:42 REVIEW OF SYSTEMS: CONSTITUTIONAL: Absent: fever, chills CARDIOVASCULAR: Absent: chest pain RESPIRATORY: Absent: cough, shortness of breath PHYSICAL EXAM: GENERAL: Awake, alert, and fully oriented, in no acute distress. HEAD: Normal with no signs of trauma. LOWER EXTREMITIES: Bilateral lower extremities with 1-2+ pitting edema to knees. L foot s/p 5th digit amputation with approx 4x3.5 cm open wound at site of amputation. Wound bed clean with granulation tissue present and minimal surrounding callus. Scant serous drainage, minimal ttp. L heel with approx 3.5x3.5cm ulcer slightly lateral on heel, clean based laterally with a 1x1cm island of soft eschar, no purulent drainage expressed, no foul odor, +ttp, minimal periwound erythyema. R heel with approx 3x3cm ulcer, slightly lateral with small amount of fibrinous exudate centrally, surroundign wound edges clean with granulation tissue present. No intertriginous ulcers present at toes. B/L feet warm, with slightly prolonged cap refill. Vasc: B/L femorals with doppler signal present, b/l BK pop/dp/pts with monophasic signals present. Vital Signs Temperature 99.1 F 08/24/18 13:00 Pulse Rate 74 08/24/18 13:00 Respiratory Rate 18 08/24/18 13:00 Blood Pressure 136/55 L 08/24/18 13:00 O2 Sat by Pulse Oximetry (%) 98 08/24/18 07:51 Lab Results WBC 7.4 K/mm3 (4.0-10.0) 08/24/18 05:30 RBC 2.52 M/mm3 (4.00-5.60) L 08/24/18 05:30 Hgb 8.2 GM/dL (11.7-16.9) L 08/24/18 05:30 Hct 23.6 % (35.4-49) L 08/24/18 05:30 MCV 93.8 fl (80-96) 08/24/18 05:30 MCHC 34.6 g/dl (32.0-35.9) 08/24/18 05:30 RDW 15.9 % (11.9-15.9) 08/24/18 05:30 Plt Count 150 K/MM3 (134-434) 08/24/18 05:30 Sodium 140 mmol/L (136-145) 08/24/18 05:30 Potassium 3.7 mmol/L (3.5-5.1) 08/24/18 05:30 Chloride 107 mmol/L (98-107) 08/24/18 05:30 Carbon Dioxide 26 mmol/L (21-32) 08/24/18 05:30 Anion Gap 7 MMOL/L (8-16) L 08/24/18 05:30 BUN 15 mg/dL (7-18) 08/24/18 05:30 Creatinine 0.8 mg/dL (0.55-1.3) 08/24/18 05:30 Random Glucose 82 mg/dL (74-106) 08/24/18 05:30 Calcium 7.9 mg/dL (8.5-10.1) L 08/24/18 05:30 Blood Type O POSITIVE 08/21/18 22:07 Antibody Screen Negative 08/21/18 22:07 INR 1.13 (0.83-1.09) H 08/24/18 05:30 A/P: 78 y/o [facility] w/ PMHx PVD, AR, chronic bilateral foot ulcers (being seen at wound care here), and previous GI bleed (s/ p clipping) now admitted with dark, found to have duodenal ulcer and diverticulosis, s/p 5 units pRBC and 2 FFP. Vascular consulted for b/l heel ulcers. Pt with b/l heel ulcers likely pressure ulcers, with no clinical signs of infection. CTA abdo/pelvis done for initial workup with significant iliac/femoral/prox sfa disease. No signs of limb threatening ischemia on examination. -No acute surgical intervention -Continue current care as pt is critical -Recommend outpt follow up with Dr Naik when pt is stable for vascular workup and possible angio/revascularization -Santyl to ulcers (cover with damp to dry 4x4, kerlix) -If heel pain persists, recommend workup for r/o osteomyelitis -Care per primary team above d/w attending Dr Naik
[2018-08-24] MEDS: MAG HYDROX/AL HYDROX/SIMETH 30 ML UNIT-DOSE CUP PO SCH ×2 (16:56→20:58)
[2018-08-24] MEDS: PANTOPRAZOLE 40 MG TABLET (FP) PO SCH (20:59)
[2018-08-24] MEDS: CHLORHEXIDINE GLUCONATE 4% CLEANSER FOR DECOLONIZATION TP SCH (20:59)
[2018-08-25] MEDS: MAG HYDROX/AL HYDROX/SIMETH 30 ML UNIT-DOSE CUP PO SCH ×4 (05:36→21:13)
[2018-08-25 07:04] LABS: BASO % 0.4 % (0-2.0); EOS % 7.5 % (0-4.5); HEMATOCRIT 28.6 % (35.4-49); HEMOGLOBIN 9.9 GM/dL (11.7-16.9); LYMPH % 11.9 % (8-40); MCH 32.6 pg (25.7-33.7); MCHC 34.4 g/dl (32.0-35.9); MEAN CELL VOLUME 94.6 fl (80-96); MEAN PLT VOLUME 9.3 fl (7.5-11.1); NEUT % 73.2 % (42.8-82.8); PLATELET COUNT 157 K/MM3 (134-434); RBC 3.02 M/mm3 (4.00-5.60); RDW 16.1 % (11.9-15.9); WHITE BLOOD COUNT 5.7 K/mm3 (4.0-10.0)
[2018-08-25 07:11] LABS: ALBUMIN 2.4 g/dl (3.4-5.0); ALK PHOS 93 U/L (45-117); ANION GAP 6 MMOL/L (8-16); BILIRUBIN,TOTAL 1.5 mg/dL (0.2-1); BLOOD UREA NITROGEN 8 mg/dL (7-18); CALCIUM 7.9 mg/dL (8.5-10.1); CHLORIDE 108 mmol/L (98-107); CO2 28 mmol/L (21-32); CREATININE 0.7 mg/dL (0.55-1.3); GLUCOSE,RANDOM 88 mg/dL (74-106); MAGNESIUM 2.3 mg/dL (1.8-2.4); PHOSPHOROUS 3.6 mg/dL (2.5-4.9); POTASSIUM 3.7 mmol/L (3.5-5.1); SGOT/AST 15 U/L (15-37); SGPT/ALT 9 U/L (13-61); SODIUM 141 mmol/L (136-145); TOT PROT 5.2 g/dl (6.4-8.2)
[2018-08-25 07:26] LABS: ACTIVATED PTT 34.9 SECONDS (25.2-36.5); INR 1.08 (0.83-1.09); PROTHROMBIN TIME (PATIENT) 12.7 SEC (9.7-13.0)
--- NOTE | 2018-08-25 08:10 | PN ---
Progress Note (short form) - Note Progress Note: PULM/CCM Pt seen & Examined in the ICU. BM X1 w/ old dark stool, no reported fresh tarry action. CA+OX3, very pleasant, V/S stable, Hgb stable. Active Medications Al Hydroxide/Mg Hydroxide (Mylanta Oral Suspension -) 30 ml PO Q6H KENDY Last Admin: 08/25/18 21:13 Dose: 30 ml Chlorhexidine Gluconate (Hibiclens For Decolonization -) 1 applic TP HS KENDY Last Admin: 08/25/18 21:14 Dose: 1 applic Collagenase (Santyl -) 1 applic TP DAILY KENDY; Protocol Last Admin: 08/25/18 10:42 Dose: 1 applic Collagenase (Santyl -) 1 applic TP DAILY KENDY; Protocol Last Admin: 08/25/18 13:43 Dose: Not Given Morphine Sulfate (Morphine Sulfate) 4 mg IVPUSH Q4H PRN PRN Reason: PAIN LEVEL 1-5 Last Admin: 08/25/18 21:13 Dose: 4 mg Mupirocin (Bactroban Ointment (For Decolonization) -) 1 applic NS BID KENDY Stop: 08/27/18 09:59 Last Admin: 08/25/18 21:14 Dose: 1 applic Pantoprazole Sodium (Protonix -) 40 mg PO BID KENDY Last Admin: 08/25/18 21:13 Dose: 40 mg Vital Signs Period Temp Pulse Resp BP Sys/Denis Pulse Ox Last 24 Hr 98.0 F-98.7 F 49-81 15-23 114-142/46-63 98-98 Intake & Output 08/22/18 08/23/18 08/24/18 08/25/18 23:59 23:59 23:59 23:59 Intake Total 4177 2560 820 Output Total 1300 500 Balance 2877 2560 820 -500 Weight 110.223 kg 111.3 kg 112.2 kg 110.132 kg GEN: NAD at rest PULM: CTAB CV: nml S1, S2, RR, + Murmur ABD: +BS, S/S N/T N/D X4Q EXT: + Pulses, WWPX4, + edema, chronic foot ulcers (wrapped) CBC, BMP 08/25/18 05:30 08/25/18 05:30 ASSESSMENT AND PLAN: s/p GI Bleed Acute Blood Loss Anemia CAD +Troponins likely Demand Ischemia PAD Hyperlipidemia - monitor H/H - transfuse as needed - protonix - GI f/u - pain control - Advance Diet as tolerated - Restart pt's Lyrica - DVT prophylaxis - D/c --> Med Surg DGL, ACNP-[facility] ICU PULM/[facility] 2311 Critical Care Total Critical Care Time (in minutes): 38 Critical Care Statement: The care of this patient involved high complexity decision making to prevent further life threatening deterioration of the patient 's condition and/or to evaluate & treat vital organ system(s) failure or risk of failure.
[2018-08-25] MEDS: MUPIROCIN 2% TOPICAL OINTMENT FOR DECOLONIZATION NS SCH ×2 (09:41→21:14)
[2018-08-25] MEDS: PANTOPRAZOLE 40 MG TABLET (FP) PO SCH ×2 (09:41→21:13)
[2018-08-25] MEDS: COLLAGENASE CLOSTRIDIUM HIST. 30 GRAMS TUBE TP SCH ×2 (10:42→13:43)
--- NOTE | 2018-08-25 13:21 | PN ---
Progress Note, Physician Chief Complaint: GIB History of Present Illness: 78 yo male PMH, PVD, NV on ASA, chronic bilateral foot ulcers, EtOH previous GI bleed (s/p clipping) presenting with dark stools for the past day. He is unable to say when stool began to change color. He reports being asymptomatic until day of admission when he became light headed and weak, he recognized as sx he had had previously when he had a GI bleed 02/2018. stable after 5 units RBC. no passage of blood per rectum reported. no active bleeding on upper and lower endoscopy. patient reports feeling almost normal. - Current Medication List Current Medications: Active Medications Al Hydroxide/Mg Hydroxide (Mylanta Oral Suspension -) 30 ml PO Q6H KENDY Last Admin: 08/25/18 09:41 Dose: 30 ml Chlorhexidine Gluconate (Hibiclens For Decolonization -) 1 applic TP HS [facility] Last Admin: 08/24/18 20:59 Dose: 1 applic Collagenase (Santyl -) 1 applic TP DAILY KENDY; Protocol Last Admin: 08/24/18 10:08 Dose: 1 applic Collagenase (Santyl -) 1 applic TP DAILY KENDY; Protocol Last Admin: 08/24/18 10:08 Dose: Not Given Mupirocin (Bactroban Ointment (For Decolonization) -) 1 applic NS BID KENDY Stop: 08/27/18 09:59 Last Admin: 08/25/18 09:41 Dose: 1 applic Pantoprazole Sodium (Protonix -) 40 mg PO BID KENDY Last Admin: 08/25/18 09:41 Dose: 40 mg - Objective Vital Signs: Vital Signs Temperature 98.0 F 08/25/18 08:00 Pulse Rate 75 08/25/18 10:00 Respiratory Rate 18 08/25/18 10:00 Blood Pressure 117/52 L 08/25/18 10:00 O2 Sat by Pulse Oximetry (%) 98 08/25/18 08:00 Vital Signs Period Temp Pulse Resp BP Sys/Denis Pulse Ox Last 24 Hr 97.5 F-99 F 49-80 15-23 115-142/45-60 98-98 Intake & Output 08/24/18 08/25/18 08/25/18 23:59 07:59 15:59 Output Total 500 Balance -500 Weight 242 lb 12.8 oz Output: Urine 500 Void 500 Other: Voiding Method Urinal Incontinent # Unmeasured Voids Void 300 Bowel Movement No Weight Measurement Method Built in Bedscale Constitutional: Yes: No Distress, Calm, Obese Eyes: Yes: Conjunctiva Clear, EOM Intact HENT: Yes: Atraumatic, Normocephalic Neck: Yes: Supple, Trachea Midline Cardiovascular: Yes: Regular Rate and Rhythm, S1, S2 Respiratory: Yes: Regular, CTA Bilaterally Gastrointestinal: Yes: Normal Bowel Sounds, Soft, Abdomen, Obese. No: Hepatomegaly, Tenderness, Tenderness, Epigastrium ...Rectal Exam: Yes: Deferred Genitourinary: No: CVA Tenderness - Left, CVA Tenderness - Right Musculoskeletal: No: Muscle Pain, Muscle Weakness Extremities: No: Cool, Cyanosis Edema: No Peripheral Pulses WNL: Yes Peripheral Pulses: Left Doralis Pedis: 1+, Right Dorsalis Pedis: 1+ Integumentary: Yes: Venous Stasis Changes Neurological: Yes: Alert, Confusion. No: Oriented Psychiatric: Yes: Alert. No: Oriented Labs: CBC, BMP 08/25/18 05:30 08/25/18 05:30 INR, PTT INR 1.08 (0.83-1.09) 08/25/18 05:30 Problem List - Problems (1) Melena Assessment/Plan: 78yo male with MMP, non-localized, likely UGIB, requiring 5 units PRBCs. No addition bloody BM reported, CTA shows no intraluminal contrast blush. Tim Class B (7 points, based on Bili, albumin, INR, no ascites or encephalopathy) 30% mortality. MELD 8 (1.9% estimated 3-month mortality). Agree with GI plan non-bleeding diverticulosis, non-bleeding duodenal ulcer. No surgical intervention is indicated. Monitored Setting may be discontinued advance diet as tolerated continue PPI GI followup alcohol cessation DT prophylaxsis This patient is guarded condition Time spent reviewing chart, examining patient , talking with providers and/or family and documentation is 35 minutes. Code(s): K92.1 - MELENA (2) Anemia Code(s): D64.9 - ANEMIA, UNSPECIFIED Qualifiers: Anemia type: unspecified type Qualified Code(s): D64.9 - Anemia, unspecified (3) GI bleed Code(s): K92.2 - GASTROINTESTINAL HEMORRHAGE, UNSPECIFIED Qualifiers: GI bleed type/associated pathology: melena Qualified Code(s): K92.1 - Melena (4) History of intravascular stent placement Code(s): Z95.828 - PRESENCE OF OTHER VASCULAR IMPLANTS AND GRAFTS (5) Obesity (BMI 30-39.9) Code(s): E66.9 - OBESITY, UNSPECIFIED (6) Peripheral vascular disease Code(s): I73.9 - PERIPHERAL VASCULAR DISEASE, UNSPECIFIED (7) Vomiting Code(s): R11.10 - VOMITING, UNSPECIFIED
[2018-08-25] MEDS ORDERED: PREGABALIN 50 MG CAPSULE PO ONE (20:20)
[2018-08-25] MEDS: PANTOPRAZOLE SODIUM 80 MG in SODIUM CHLORIDE 100 ML IVPB SCH (20:47)
[2018-08-25] MEDS: MORPHINE SULFATE 2 MG/ML VIAL IVPUSH PRN (21:13)
[2018-08-25] MEDS: CHLORHEXIDINE GLUCONATE 4% CLEANSER FOR DECOLONIZATION TP SCH (21:14)
--- NOTE | 2018-08-25 22:55 | PN ---
Progress Note (short form) - Note Progress Note: patient seen and examined in ICU comfortable BM X1 stool dark no sx's of active bleeding Vital Signs Period Temp Pulse Resp BP Sys/Denis Pulse Ox Last 24 Hr 98.0 F-98.7 F 49-81 15-23 114-142/46-63 98-98 sitting up in bed denies abdominal pain neck supple heart S1/S2 ireg lungs clear ant / laterally abdomen obese soft no tenderness elicited BS + X 4 Q Ext LE bilat dressing to feet + trace edema CBC, [facility] 08/25/18 05:30 08/25/18 05:30 CBC, [facility] 08/23/18 05:30 08/23/18 05:30 s/p 5 units PRBC CBC, [facility] 08/22/18 14:10 08/22/18 05:30 s/p 4 units pRBC Active Medications Al Hydroxide/Mg Hydroxide (Mylanta Oral Suspension -) 30 ml PO Q6H KENDY Last Admin: 08/25/18 21:13 Dose: 30 ml Chlorhexidine Gluconate (Hibiclens For Decolonization -) 1 applic TP HS [facility] Last Admin: 08/25/18 21:14 Dose: 1 applic Collagenase (Santyl -) 1 applic TP DAILY [facility]; Protocol Last Admin: 08/25/18 10:42 Dose: 1 applic Collagenase (Santyl -) 1 applic TP DAILY [facility]; Protocol Last Admin: 08/25/18 13:43 Dose: Not Given Morphine Sulfate (Morphine Sulfate) 4 mg IVPUSH Q4H PRN PRN Reason: PAIN LEVEL 1-5 Last Admin: 08/25/18 21:13 Dose: 4 mg Mupirocin (Bactroban Ointment (For Decolonization) -) 1 applic NS BID [facility] Stop: 08/27/18 09:59 Last Admin: 08/25/18 21:14 Dose: 1 applic Pantoprazole Sodium (Protonix -) 40 mg PO BID [facility] Last Admin: 08/25/18 21:13 Dose: 40 mg Pregabalin (Lyrica -) 50 mg PO BID [facility] reviewed CT of abd/ pelvis ASSESSMENT AND PLAN: #GI Bleed transfuse to keep hgb>8 - trend h/h PPi BID transfused 5 units pRBC / h/h has remained stable able to leave monitored unit # Anemia 2/2 to GI bleed # CAD elevated TNI - demand ischemia likely trend TNI - follow EKG cardio consult appreciated # PVD / PAD not on a/c prior to admission previous GI bleed 02/2018 patient was on Plavix / Eliquis - these where discontinued after that admission Had only been on asa Care to LE --wound and dressing care patient was attending wound center as out patient Problem List - Problems (1) Obesity (BMI 30-39.9) Code(s): E66.9 - OBESITY, UNSPECIFIED (2) Anemia Code(s): D64.9 - ANEMIA, UNSPECIFIED Qualifiers: Anemia type: unspecified type Qualified Code(s): D64.9 - Anemia, unspecified (3) GI bleed Code(s): K92.2 - GASTROINTESTINAL HEMORRHAGE, UNSPECIFIED Qualifiers: GI bleed type/associated pathology: melena Qualified Code(s): K92.1 - Melena (4) History of colon polyps Code(s): Z86.010 - PERSONAL HISTORY OF COLONIC POLYPS (5) History of intravascular stent placement Code(s): Z95.828 - PRESENCE OF OTHER VASCULAR IMPLANTS AND GRAFTS (6) Peripheral vascular disease Code(s): I73.9 - PERIPHERAL VASCULAR DISEASE, UNSPECIFIED
[2018-08-26] MEDS: MAG HYDROX/AL HYDROX/SIMETH 30 ML UNIT-DOSE CUP PO SCH ×4 (04:59→21:54)
[2018-08-26 05:54] LABS: BASO % 0.6 % (0-2.0); EOS % 8.2 % (0-4.5); HEMATOCRIT 27.3 % (35.4-49); HEMOGLOBIN 9.4 GM/dL (11.7-16.9); LYMPH % 14.8 % (8-40); MCH 32.6 pg (25.7-33.7); MCHC 34.4 g/dl (32.0-35.9); MEAN CELL VOLUME 94.7 fl (80-96); MEAN PLT VOLUME 9.2 fl (7.5-11.1); MONO % 7.8 % (3.8-10.2); NEUT % 68.6 % (42.8-82.8); PLATELET COUNT 174 K/MM3 (134-434); RBC 2.88 M/mm3 (4.00-5.60); WHITE BLOOD COUNT 5.4 K/mm3 (4.0-10.0)
[2018-08-26 06:19] LABS: ANION GAP 6 MMOL/L (8-16); BLOOD UREA NITROGEN 6 mg/dL (7-18); CALCIUM 7.9 mg/dL (8.5-10.1); CHLORIDE 109 mmol/L (98-107); CO2 29 mmol/L (21-32); CREATININE 0.7 mg/dL (0.55-1.3); GLUCOSE,RANDOM 91 mg/dL (74-106); POTASSIUM 3.6 mmol/L (3.5-5.1); SODIUM 144 mmol/L (136-145)
[2018-08-26] MEDS: PANTOPRAZOLE 40 MG TABLET (FP) PO SCH (09:46)
[2018-08-26] MEDS: PREGABALIN 50 MG CAPSULE PO SCH ×2 (09:47→21:54)
[2018-08-26] MEDS: MUPIROCIN 2% TOPICAL OINTMENT FOR DECOLONIZATION NS SCH ×2 (09:48→21:55)
[2018-08-26] MEDS: MORPHINE SULFATE 2 MG/ML VIAL IVPUSH PRN (09:57)
--- NOTE | 2018-08-26 10:34 | PN ---
GI Progress Note Subjective: Covering for Dr. Golden: No acute events No abdominal pain No overt bleeding Conmplains of leg pain bilaterally and right knee pain EGD report from 08/24/18 reviewed - Objective Vital Signs: Vital Signs Temperature 98.2 F 08/26/18 06:00 Pulse Rate 68 08/26/18 07:49 Respiratory Rate 15 08/26/18 07:49 Blood Pressure 113/54 L 08/26/18 07:49 O2 Sat by Pulse Oximetry (%) 95 08/26/18 07:49 Constitutional: Calm Eyes: No: Sclera Icterus Cardiovascular: Yes: Regular Rate and Rhythm Respiratory: Yes: Diminished (at bases bilaterally with poor insp effort) Gastrointestinal Inspection: No: Distention ...Auscultate: Yes: Normoactive Bowel Sounds ...Palpate: Yes: Soft. No: Hepatomegaly, Splenomegaly, Tenderness Extremities: Yes: Other (dressings on feet b/l. Tender to even light touch of b/ l LE. Negative ballottment right knee.) Edema: No (No LE) Neurological: Yes: Alert Labs: CBC, BMP 08/26/18 05:30 08/26/18 05:30 INR, PTT INR 1.08 (0.83-1.09) 08/25/18 05:30 Problem List - Problems (1) GI bleed Assessment/Plan: Non bleeding duodenal ulcer and endoclips in the gastric cardia/fundus: Advance diet Changed to Protonix 40mg PO daily Code(s): K92.2 - GASTROINTESTINAL HEMORRHAGE, UNSPECIFIED Qualifiers: GI bleed type/associated pathology: melena Qualified Code(s): K92.1 - Melena
[2018-08-26] MEDS: COLLAGENASE CLOSTRIDIUM HIST. 30 GRAMS TUBE TP SCH ×2 (11:47→12:53)
--- NOTE | 2018-08-26 16:37 | PN ---
Progress Note (short form) - Note Progress Note: PULM/CCM Pt seen & examined in the ICU. No More Melena. Hgb Stable, V/S Stable. Active Medications Al Hydroxide/Mg Hydroxide (Mylanta Oral Suspension -) 30 ml PO Q6H [facility] Last Admin: 08/26/18 09:47 Dose: 30 ml Chlorhexidine Gluconate (Hibiclens For Decolonization -) 1 applic TP HS [facility] Last Admin: 08/25/18 21:14 Dose: 1 applic Collagenase (Santyl -) 1 applic TP DAILY [facility]; Protocol Last Admin: 08/25/18 10:42 Dose: 1 applic Collagenase (Santyl -) 1 applic TP DAILY [facility]; Protocol Last Admin: 08/26/18 11:47 Dose: Not Given Morphine Sulfate (Morphine Sulfate) 4 mg IVPUSH Q4H PRN PRN Reason: PAIN LEVEL 1-5 Last Admin: 08/26/18 09:57 Dose: 4 mg Mupirocin (Bactroban Ointment (For Decolonization) -) 1 applic NS BID [facility] Stop: 08/27/18 09:59 Last Admin: 08/26/18 09:48 Dose: Not Given Pantoprazole Sodium (Protonix -) 40 mg PO DAILY [facility] Pregabalin (Lyrica -) 50 mg PO BID [facility] Last Admin: 08/26/18 09:47 Dose: 50 mg Vital Signs Period Temp Pulse Resp BP Sys/Denis Pulse Ox Last 24 Hr 98.2 F-98.7 F 65-75 15-22 113-136/50-58 95-96 Intake & Output 08/23/18 08/24/18 08/25/18 08/26/18 23:59 23:59 23:59 23:59 Intake Total 2560 820 140 10 Output Total 650 350 Balance 2560 820 -510 -340 Weight 111.3 kg 112.2 kg 110.132 kg 108.499 kg CBC, BMP 08/26/18 05:30 08/26/18 05:30 GEN: NAD at rest PULM: CTAB CV: nml S1, S2, RR, + Murmur ABD: +BS, S/S N/T N/D X4Q EXT: + Pulses, WWPX4, + edema, chronic foot ulcers (wrapped) ASSESSMENT AND PLAN: s/p GI Bleed Acute Blood Loss Anemia CAD +Troponins likely Demand Ischemia PAD Hyperlipidemia - monitor H/H - transfuse as needed - protonix - GI f/u - pain control - Advance Diet as tolerated - Restart pt's Lyrica - DVT prophylaxis - D/c --> Med Surg DGL, ACNP-BC [facility] ICU PULM/CCM 8421
--- NOTE | 2018-08-26 21:28 | PN ---
Progress Note (short form) - Note Progress Note: last night episode of vomiting back to liquid diet earlier today tolerating regular diet today patient seen and examined in ICU comfortable / denies nausea /abd pain BM X1 stool dark no sx's of active bleeding Vital Signs Period Temp Pulse Resp BP Sys/Denis Pulse Ox Last 24 Hr 98.0 F-98.7 F 49-81 15-23 114-142/46-63 98-98 sitting up in bed neck supple heart S1/S2 ireg lungs clear ant / laterally abdomen obese soft no tenderness elicited BS + X 4 Q Ext LE bilat dressing to feet + trace edema CBC, BMP 08/26/18 05:30 08/26/18 05:30 CBC, BMP 08/25/18 05:30 08/25/18 05:30 CBC, BMP 08/23/18 05:30 08/23/18 05:30 s/p 5 units PRBC CBC, [facility] 08/22/18 14:10 08/22/18 05:30 s/p 4 units pRBC Active Medications Al Hydroxide/Mg Hydroxide (Mylanta Oral Suspension -) 30 ml PO Q6H [facility] Last Admin: 08/26/18 17:54 Dose: Not Given Chlorhexidine Gluconate (Hibiclens For Decolonization -) 1 applic TP HS KENDY Last Admin: 08/25/18 21:14 Dose: 1 applic Collagenase (Santyl -) 1 applic TP DAILY [facility]; Protocol Last Admin: 08/26/18 12:53 Dose: 1 applic Collagenase (Santyl -) 1 applic TP DAILY [facility]; Protocol Last Admin: 08/26/18 11:47 Dose: Not Given Morphine Sulfate (Morphine Sulfate) 4 mg IVPUSH Q4H PRN PRN Reason: PAIN LEVEL 1-5 Last Admin: 08/26/18 09:57 Dose: 4 mg Mupirocin (Bactroban Ointment (For Decolonization) -) 1 applic NS BID [facility] Stop: 08/27/18 09:59 Last Admin: 08/26/18 09:48 Dose: Not Given Pantoprazole Sodium (Protonix -) 40 mg PO DAILY [facility] Pregabalin (Lyrica -) 50 mg PO BID [facility] Last Admin: 08/26/18 09:47 Dose: [address] of abd/ pelvis ASSESSMENT AND PLAN: #GI Bleed transfuse to keep hgb>8 - trend h/h PPi BID transfused 5 units pRBC / 2 FFP h/h has remained stable tolerating diet today able to leave monitored unit # Anemia 2/2 to GI bleed # CAD elevated TNI - demand ischemia likely trend TNI - follow EKG cardio consult appreciated # PVD / PAD not on a/c prior to admission previous GI bleed 02/2018 patient was on Plavix / Eliquis - these where discontinued after that admission Had only been on asa Care to LE --wound and dressing care patient was attending wound center as out patient Problem List - Problems (1) Obesity (BMI 30-39.9) Code(s): E66.9 - OBESITY, UNSPECIFIED (2) Anemia Code(s): D64.9 - ANEMIA, UNSPECIFIED Qualifiers: Anemia type: unspecified type Qualified Code(s): D64.9 - Anemia, unspecified (3) GI bleed Code(s): K92.2 - GASTROINTESTINAL HEMORRHAGE, UNSPECIFIED Qualifiers: GI bleed type/associated pathology: melena Qualified Code(s): K92.1 - Melena (4) History of colon polyps Code(s): Z86.010 - PERSONAL HISTORY OF COLONIC POLYPS (5) History of intravascular stent placement Code(s): Z95.828 - PRESENCE OF OTHER VASCULAR IMPLANTS AND GRAFTS (6) Peripheral vascular disease Code(s): I73.9 - PERIPHERAL VASCULAR DISEASE, UNSPECIFIED
[2018-08-26] MEDS: CHLORHEXIDINE GLUCONATE 4% CLEANSER FOR DECOLONIZATION TP SCH (21:55)
[2018-08-27] MEDS: MAG HYDROX/AL HYDROX/SIMETH 30 ML UNIT-DOSE CUP PO SCH ×4 (05:38→21:11)
[2018-08-27 06:11] LABS: BASO % 0.6 % (0-2.0); EOS % 7.5 % (0-4.5); HEMATOCRIT 29.5 % (35.4-49); LYMPH % 13.4 % (8-40); MCH 32.3 pg (25.7-33.7); MCHC 33.9 g/dl (32.0-35.9); MEAN CELL VOLUME 95.3 fl (80-96); MEAN PLT VOLUME 9.1 fl (7.5-11.1); MONO % 8.8 % (3.8-10.2); NEUT % 69.7 % (42.8-82.8); PLATELET COUNT 184 K/MM3 (134-434); RBC 3.09 M/mm3 (4.00-5.60); RDW 16.7 % (11.9-15.9); WHITE BLOOD COUNT 5.3 K/mm3 (4.0-10.0)
[2018-08-27 09:33] LABS: ALBUMIN 2.5 g/dl (3.4-5.0); ALK PHOS 92 U/L (45-117); ANION GAP 6 MMOL/L (8-16); BLOOD UREA NITROGEN 8 mg/dL (7-18); CALCIUM 8.3 mg/dL (8.5-10.1); CHLORIDE 105 mmol/L (98-107); CO2 30 mmol/L (21-32); CREATININE 0.9 mg/dL (0.55-1.3); GLUCOSE,RANDOM 98 mg/dL (74-106); MAGNESIUM 2.7 mg/dL (1.8-2.4); PHOSPHOROUS 3.6 mg/dL (2.5-4.9); POTASSIUM 3.8 mmol/L (3.5-5.1); SGOT/AST 12 U/L (15-37); SGPT/ALT 10 U/L (13-61); SODIUM 142 mmol/L (136-145); TOT PROT 5.4 g/dl (6.4-8.2)
[2018-08-27] MEDS: PREGABALIN 50 MG CAPSULE PO SCH ×2 (10:18→21:12)
[2018-08-27] MEDS: COLLAGENASE CLOSTRIDIUM HIST. 30 GRAMS TUBE TP SCH ×2 (10:18→10:19)
[2018-08-27] MEDS: PANTOPRAZOLE 40 MG TABLET (FP) PO SCH (10:18)
--- NOTE | 2018-08-27 11:19 | PN ---
Progress Note (short form) - Note Progress Note: patient seen and examined in ICU comfortable / denies nausea /abd pain tolerating meals - no vomiting Vital Signs Period Temp Pulse Resp BP Sys/Denis Pulse Ox Last 24 Hr 98.0 F-98.7 F 49-81 15-23 114-142/46-63 98-98 sitting up in bed neck supple heart S1/S2 ireg lungs clear ant / laterally abdomen obese soft no tenderness elicited BS + X 4 Q Ext LE bilat dressing to feet + trace edema CBC, BMP 08/27/18 05:30 08/27/18 05:30 CBC, BMP 08/26/18 05:30 08/26/18 05:30 CBC, BMP 08/22/18 14:10 08/22/18 05:30 s/p 4 units pRBC Active Medications Al Hydroxide/Mg Hydroxide (Mylanta Oral Suspension -) 30 ml PO Q6H [facility] Last Admin: 08/27/18 10:18 Dose: 30 ml Chlorhexidine Gluconate (Hibiclens For Decolonization -) 1 applic TP HS [facility] Last Admin: 08/26/18 21:55 Dose: 1 applic Collagenase (Santyl -) 1 applic TP DAILY [facility]; Protocol Last Admin: 08/27/18 10:18 Dose: 1 applic Collagenase (Santyl -) 1 applic TP DAILY [facility]; Protocol Last Admin: 08/27/18 10:19 Dose: Not Given Pantoprazole Sodium (Protonix -) 40 mg PO DAILY [facility] Last Admin: 08/27/18 10:18 Dose: 40 mg Pregabalin (Lyrica -) 50 mg PO BID [facility] Last Admin: 08/27/18 10:18 Dose: [address] of abd/ pelvis ASSESSMENT AND PLAN: #GI Bleed h/h has remained stable / tolerating diet PPi BID transfused 5 units pRBC / 2 FFP able to leave monitored unit # Anemia 2/2 to GI bleed h/h -05/15 # CAD elevated TNI - demand ischemia likely trend TNI - follow EKG cardio consult appreciated # PVD / PAD not on a/c prior to admission previous GI bleed 02/2018 patient was on Plavix / Eliquis - these where discontinued after that admission Had only been on asa / + ETOH intake Care to LE --wound and dressing care patient was attending wound center as out patient Can transfer out of ICU will need PT / and continued wound care Problem List - Problems (1) Obesity (BMI 30-39.9) Code(s): E66.9 - OBESITY, UNSPECIFIED (2) Anemia Code(s): D64.9 - ANEMIA, UNSPECIFIED Qualifiers: Qualified Code(s): D64.9 - Anemia, unspecified (3) GI bleed Code(s): K92.2 - GASTROINTESTINAL HEMORRHAGE, UNSPECIFIED Qualifiers: Qualified Code(s): K92.1 - Melena (4) History of colon polyps Code(s): Z86.010 - PERSONAL HISTORY OF COLONIC POLYPS (5) History of intravascular stent placement Code(s): Z95.828 - PRESENCE OF OTHER VASCULAR IMPLANTS AND GRAFTS (6) Peripheral vascular disease Code(s): I73.9 - PERIPHERAL VASCULAR DISEASE, UNSPECIFIED
--- NOTE | 2018-08-27 11:33 | PN ---
Teaching Attending Note Name of Resident: Chandrika Hnasen ATTENDING PHYSICIAN STATEMENT I saw and evaluated the patient. I reviewed the resident's note and discussed the case with the resident. I agree with the resident's findings and plan as documented. SUBJECTIVE: Patient seen and examined in the ICU. Awake and alert. No occult bleeding noted overnight. No CP or SOB. Tolerated some PO intake this AM. Intake & Output 08/24/18 08/25/18 08/26/18 08/27/18 23:59 23:59 23:59 23:59 Intake Total 820 140 590 50 Output Total 650 1050 Balance 820 -510 -460 50 Weight 247 lb 5.738 oz 242 lb 12.8 oz 239 lb 3.2 oz Last Vital Signs Temp Pulse Resp BP Pulse Ox 98.1 F 60 20 113/43 L 95 08/27/18 10:00 08/27/18 10:00 08/27/18 10:00 08/27/18 10:00 08/27/18 09:00 Active Medications Al Hydroxide/Mg Hydroxide (Mylanta Oral Suspension -) 30 ml PO Q6H [facility] Last Admin: 08/27/18 10:18 Dose: 30 ml Chlorhexidine Gluconate (Hibiclens For Decolonization -) 1 applic TP HS [facility] Last Admin: 08/26/18 21:55 Dose: 1 applic Collagenase (Santyl -) 1 applic TP DAILY [facility]; Protocol Last Admin: 08/27/18 10:18 Dose: 1 applic Collagenase (Santyl -) 1 applic TP DAILY [facility]; Protocol Last Admin: 08/27/18 10:19 Dose: Not Given Pantoprazole Sodium (Protonix -) 40 mg PO DAILY [facility] Last Admin: 08/27/18 10:18 Dose: 40 mg Pregabalin (Lyrica -) 50 mg PO BID [facility] Last Admin: 08/27/18 10:18 Dose: 50 mg GEN: Awake and alert, NAD at rest PULM: Few scattered rhonchi CV: S1, S2, (+) ESM ABD: +BS, S/S N/T N/D X4Q EXT: (+) PP, (+) edema & chronic foot ulcers (wrapped) Laboratory Results - last 24 hr 08/27/18 08/27/18 05:30 05:30 WBC 5.3 RBC 3.09 L Hgb 10.0 L Hct 29.5 L MCV 95.3 MCH 32.3 MCHC 33.9 RDW 16.7 H Plt Count 184 MPV 9.1 Absolute Neuts (auto) 3.7 Neutrophils % 69.7 Lymphocytes % 13.4 Monocytes % 8.8 Eosinophils % 7.5 H Basophils % 0.6 Nucleated RBC % 0 Sodium 142 Potassium 3.8 Chloride 105 Carbon Dioxide 30 Anion Gap 6 L BUN 8 Creatinine 0.9 Creat Clearance w eGFR > 60 Random Glucose 98 Calcium 8.3 L Phosphorus 3.6 Magnesium 2.7 H Total Bilirubin 1.0 AST 12 L ALT 10 L Alkaline Phosphatase 92 Total Protein 5.4 L Albumin 2.5 L ASSESSMENT AND PLAN: s/p GI Bleed Acute Blood Loss Anemia CAD +Troponins likely Demand Ischemia PAD Hyperlipidemia - monitor H/H - Normal transfusion thresholds - PPI - pain control - Advance Diet as tolerated - DVT prophylaxis - Floor Dr Reyes
--- NOTE | 2018-08-27 11:46 | PN ---
Physical Exam: SUBJECTIVE: Patient seen and examined this AM. Having a nonproductive cough overnight, otherwise no new complaints. No Acute overnight events. Denies fevers , chills, chest pain, SOB, nausea, vomiting, diarrhea, constipation. OBJECTIVE: Vital Signs Period Temp Pulse Resp BP Sys/Denis Pulse Ox Last 24 Hr 98.1 F-99.5 F 55-88 14-22 99-124/43-78 95-95 GENERAL: A&Ox3, NAD HEAD: NCAT EYES: PERRL, EOMI ENT: Moist mucous membranes NECK: Trachea midline, full range of motion, supple. LUNGS: Diminished breath sounds at the bases, no wheezes, no crackles HEART: Regular rate and rhythm, S1, S2 without murmur ABDOMEN: Soft, nontender, nondistended, + bowel sounds, no guarding EXTREMITIES: No edema. NEUROLOGICAL: Cranial nerves II through XII grossly intact. Normal speech. SKIN: Healing foot ulcers b/l with dressings, No surrounding erythema or tenderness Laboratory Results - last 24 hr 08/27/18 08/27/18 05:30 05:30 WBC 5.3 RBC 3.09 L Hgb 10.0 L Hct 29.5 L MCV 95.3 MCH 32.3 MCHC 33.9 RDW 16.7 H Plt Count 184 MPV 9.1 Absolute Neuts (auto) 3.7 Neutrophils % 69.7 Lymphocytes % 13.4 Monocytes % 8.8 Eosinophils % 7.5 H Basophils % 0.6 Nucleated RBC % 0 Sodium 142 Potassium 3.8 Chloride 105 Carbon Dioxide 30 Anion Gap 6 L BUN 8 Creatinine 0.9 Creat Clearance w eGFR > 60 Random Glucose 98 Calcium 8.3 L Phosphorus 3.6 Magnesium 2.7 H Total Bilirubin 1.0 AST 12 L ALT 10 L Alkaline Phosphatase 92 Total Protein 5.4 L Albumin 2.5 L Active Medications Al Hydroxide/Mg Hydroxide (Mylanta Oral Suspension -) 30 ml PO Q6H [facility] Last Admin: 08/27/18 10:18 Dose: 30 ml Chlorhexidine Gluconate (Hibiclens For Decolonization -) 1 applic TP HS [facility] Last Admin: 08/26/18 21:55 Dose: 1 applic Collagenase (Santyl -) 1 applic TP DAILY [facility]; Protocol Last Admin: 08/27/18 10:18 Dose: 1 applic Collagenase (Santyl -) 1 applic TP DAILY [facility]; Protocol Last Admin: 08/27/18 10:19 Dose: Not Given Pantoprazole Sodium (Protonix -) 40 mg PO DAILY [facility] Last Admin: 08/27/18 10:18 Dose: 40 mg Pregabalin (Lyrica -) 50 mg PO BID [facility] Last Admin: 08/27/18 10:18 Dose: 50 mg ASSESSMENT/PLAN: 78 y/o M with PMHx of GI bleed, PAD/PVD, IA, CAD, HTN/HLD, osteoarthritis, fibromyalgia, BPH presenting with melena and being monitored in ICU for Anemia with hemoglobin of 5.9 #Neuro Lower Extremity pain -A&Ox3, NAD -Continue Pregabalin 50mg BID #Cardio Troponemia, Downtrending likely due to demand Hx of PAD/PVD, IA, CAD, HTN/HLD -ECHO: LV EF is normal, Trace TR MR, Regional WMA cannot be excluded -EKG: SINUS RHYTHM WITH PACs, RBBB, VR 87, QTc 512 -Trops trending down #Pulmonary -CXR: Cardiomegaly. No evidence of active pulmonary disease. No pleural effusion , or pneumothorax is seen. -No active issues, continue to monitor #GI UGIB Hyperbilirubinemia, Resolved -CTA: No CT evidence of active intraluminal blush contrast to suggest active GI bleeding. Sigmoid colon diverticulosis. 6 mm left lower renal pole nonobstructing stone. Bilateral renal cysts. Bilateral fat-containing inguinal hernias. Significant bilateral, right more than left, posterior dependent lung atelectasis. -Colonoscopy and EGD 08/25 revealed Non bleeding duodenal ulcer and endoclips in the gastric cardia/fundus -Continue Protonix 40mg PO Daily -Dr. Golden consulted #Renal -No active issues, continue to monitor #Heme Normocytic Normochromic Anemia -Due to GI bleed -S/P 5 units pRBCs, 2 units FFP -Iron studies, Folate, B12 noted -H&H Stable this am, continue to follow #Endo -No active issues, continue to monitor #ID -Afebrile, No elevated WBC count #Skin BLE wounds -Daily wound care with Collagenase -Dr. Naik consulted #FEN -1/2 NS @ 50 mls/hr -Replete PRN -Sodium controlled diet #PPx -DVT: Early Ambulation -GI: Protonix [facility] Emergency Visit: Yes ED Registration Date: 08/21/18 Care time: The patient presented to the Emergency Department on the above date and was hospitalized for further evaluation of their emergent condition. - New Patient This patient is new to me today: Yes Date on this admission: 08/27/18 - Critical Care Critical Care patient: Yes Total Critical Care Time (in minutes): 36 Critical Care Statement: The care of this patient involved high complexity decision making to prevent further life threatening deterioration of the patient 's condition and/or to evaluate & treat vital organ system(s) failure or risk of failure.
--- NOTE | 2018-08-27 12:10 | PN ---
GI Progress Note Subjective: GO NOte: NO bleeding reported. Hb stable. Tolerating solids. - Objective Vital Signs: Vital Signs Temperature 98.1 F 08/27/18 10:00 Pulse Rate 60 08/27/18 10:00 Respiratory Rate 20 08/27/18 10:00 Blood Pressure 113/43 L 08/27/18 10:00 O2 Sat by Pulse Oximetry (%) 95 08/27/18 09:00 Laboratory Tests 08/23/18 08/23/18 08/24/18 05:30 21:00 05:30 Hgb 8.3 L 9.1 L 8.2 L 08/25/18 08/26/18 08/27/18 05:30 05:30 05:30 Hgb 9.9 L 9.4 L 10.0 L Constitutional: Calm ...Auscultate: Yes: Normoactive Bowel Sounds ...Palpate: Yes: Soft, Other (nontender) Labs: CBC, BMP 08/27/18 05:30 08/27/18 05:30 INR, PTT INR 1.08 (0.83-1.09) 08/25/18 05:30 Assessment/Plan Impression: Duodenal bulb ulcer bleed resolved Plan: NO GI objections to discharge on PPI Problem List - Problems (1) GI bleed Code(s): K92.2 - GASTROINTESTINAL HEMORRHAGE, UNSPECIFIED Qualifiers: GI bleed type/associated pathology: melena Qualified Code(s): K92.1 - Melena (2) Vomiting Code(s): R11.10 - VOMITING, UNSPECIFIED (3) Peripheral vascular disease Code(s): I73.9 - PERIPHERAL VASCULAR DISEASE, UNSPECIFIED (4) Status post vascular bypass Code(s): Z95.828 - PRESENCE OF OTHER VASCULAR IMPLANTS AND GRAFTS (5) History of intravascular stent placement Code(s): Z95.828 - PRESENCE OF OTHER VASCULAR IMPLANTS AND GRAFTS (6) History of colon polyps Code(s): Z86.010 - PERSONAL HISTORY OF COLONIC POLYPS (7) Anemia Code(s): D64.9 - ANEMIA, UNSPECIFIED Qualifiers: Anemia type: unspecified type Qualified Code(s): D64.9 - Anemia, unspecified (8) Melena Code(s): K92.1 - MELENA
[2018-08-27] MEDS: CHLORHEXIDINE GLUCONATE 4% CLEANSER FOR DECOLONIZATION TP SCH (21:12)
[2018-08-27] MEDS ORDERED: MORPHINE SULFATE 2 MG/ML VIAL IVPUSH ONE (21:51)
[2018-08-28] MEDS: MAG HYDROX/AL HYDROX/SIMETH 30 ML UNIT-DOSE CUP PO SCH ×3 (03:24→15:26)
[2018-08-28 06:27] LABS: BASO % 0.7 % (0-2.0); HEMATOCRIT 28.1 % (35.4-49); HEMOGLOBIN 9.6 GM/dL (11.7-16.9); MCH 32.1 pg (25.7-33.7); MCHC 34.1 g/dl (32.0-35.9); MONO % 8.5 % (3.8-10.2); NEUT % 71.8 % (42.8-82.8); PLATELET COUNT 184 K/MM3 (134-434); RBC 2.99 M/mm3 (4.00-5.60); RDW 16.1 % (11.9-15.9); WHITE BLOOD COUNT 5.8 K/mm3 (4.0-10.0)
--- NOTE | 2018-08-28 08:04 | PN ---
Physical Exam: SUBJECTIVE: Patient seen and examined this AM. Continues to have nonproductive cough. Overnight required morphine due to his Leg pain. Tolerating diet. No BM Overnight. Denies fevers, chills, chest pain, SOB, nausea, vomiting, diarrhea, constipation. OBJECTIVE: Vital Signs Period Temp Pulse Resp BP Sys/Denis Pulse Ox Last 24 Hr 98.1 F-98.4 F 60-88 16-23 108-122/43-78 95-95 GENERAL: A&Ox3, NAD HEAD: NCAT EYES: PERRL, EOMI ENT: Moist mucous membranes NECK: Supple LUNGS: Diminished breath sounds at the bases, no wheezes, no crackles HEART: Regular rate and rhythm, S1, S2 without murmur ABDOMEN: Soft, nontender, nondistended, + bowel sounds, no guarding EXTREMITIES: No edema NEUROLOGICAL: Cranial nerves II through XII grossly intact. Normal speech. Diminished sensation below the knee's b/l SKIN: Healing foot ulcers b/l with dressings, No surrounding erythema or tenderness Laboratory Results - last 24 hr 08/27/18 08/28/18 05:30 05:30 WBC 5.8 RBC 2.99 L Hgb 9.6 L Hct 28.1 L MCV 94.0 MCH 32.1 MCHC 34.1 RDW 16.1 H Plt Count 184 MPV 9.0 Absolute Neuts (auto) 4.2 Neutrophils % 71.8 Lymphocytes % 11.0 Monocytes % 8.5 Eosinophils % 8.0 H Basophils % 0.7 Nucleated RBC % 0 Sodium 142 Potassium 3.8 Chloride 105 Carbon Dioxide 30 Anion Gap 6 L BUN 8 Creatinine 0.9 Creat Clearance w eGFR > 60 Random Glucose 98 Calcium 8.3 L Phosphorus 3.6 Magnesium 2.7 H Total Bilirubin 1.0 AST 12 L ALT 10 L Alkaline Phosphatase 92 Total Protein 5.4 L Albumin 2.5 L Active Medications Al Hydroxide/Mg Hydroxide (Mylanta Oral Suspension -) 30 ml PO Q6H [facility] Last Admin: 08/28/18 03:24 Dose: Not Given Chlorhexidine Gluconate (Hibiclens For Decolonization -) 1 applic TP HS [facility] Last Admin: 08/27/18 21:12 Dose: 1 applic Collagenase (Santyl -) 1 applic TP DAILY [facility]; Protocol Last Admin: 08/27/18 10:18 Dose: 1 applic Collagenase (Santyl -) 1 applic TP DAILY [facility]; Protocol Last Admin: 08/27/18 10:19 Dose: Not Given Pantoprazole Sodium (Protonix -) 40 mg PO DAILY [facility] Last Admin: 08/27/18 10:18 Dose: 40 mg Pregabalin (Lyrica -) 50 mg PO BID [facility] Last Admin: 08/27/18 21:12 Dose: 50 mg ASSESSMENT/PLAN: 78 y/o M with PMHx of GI bleed, PAD/PVD, [place], CAD, HTN/HLD, osteoarthritis, fibromyalgia, BPH presenting with melena and being monitored in ICU for Anemia with hemoglobin of 5.9 #Neuro Lower Extremity Neuropathy -A&Ox3, NAD -Continue Pregabalin 50mg BID -Continue to monitor; Will need to adjust home meds if patient continues to require meds for break through pain #Cardio Troponemia, Downtrending likely due to demand Hx of PAD/PVD, [place], CAD, HTN/HLD -ECHO: LV EF is normal, Trace TR MR, Regional WMA cannot be excluded -EKG: SINUS RHYTHM WITH PACs, RBBB, VR 87, QTc 512 -Trops trending down #Pulmonary -No active issues, continue to monitor #GI UGIB Hyperbilirubinemia, Resolved -CTA: No CT evidence of active intraluminal blush contrast to suggest active GI bleeding. Sigmoid colon diverticulosis. 6 mm left lower renal pole nonobstructing stone. Bilateral renal cysts. Bilateral fat-containing inguinal hernias. Significant bilateral, right more than left, posterior dependent lung atelectasis. -Colonoscopy and EGD 08/25 revealed Non bleeding duodenal ulcer and endoclips in the gastric cardia/fundus -Continue Protonix 40mg PO Daily -Dr. Golden consulted, Appreciate Rec's #Renal -No active issues, continue to monitor #Heme Normocytic Normochromic Anemia -Due to UGIB -S/P 5 units pRBCs, 2 units FFP -Iron studies, Folate, B12 noted -H&H remains stable -No signs of active bleeding, continue to follow #Endo -No active issues, continue to monitor #ID -Afebrile, No elevated WBC count -Continue to monitor off ABx #Skin BLE wounds -Daily wound care with Collagenase -Dr. Naik consulted #FEN -PO Fluids -Replete PRN -Sodium controlled diet #PPx -DVT: Early Ambulation; Chemical AC held in the setting of UGIB, Patient does not tolerate SCDs due to Lower extremity pain -GI: Protonix Dispo: Transfer [facility] Visit type - Emergency Visit Emergency Visit: Yes ED Registration Date: 08/21/18 Care time: The patient presented to the Emergency Department on the above date and was hospitalized for further evaluation of their emergent condition. - New Patient This patient is new to me today: No - Critical Care Critical Care patient: Yes Total Critical Care Time (in minutes): 36 Critical Care Statement: The care of this patient involved high complexity decision making to prevent further life threatening deterioration of the patient 's condition and/or to evaluate & treat vital organ system(s) failure or risk of failure.
[2018-08-28 09:02] LABS: ALBUMIN 2.4 g/dl (3.4-5.0); ALK PHOS 85 U/L (45-117); ANION GAP 7 MMOL/L (8-16); BILIRUBIN,TOTAL 0.7 mg/dL (0.2-1); CALCIUM 8.6 mg/dL (8.5-10.1); CHLORIDE 106 mmol/L (98-107); CO2 29 mmol/L (21-32); CREATININE 0.8 mg/dL (0.55-1.3); GLUCOSE,RANDOM 95 mg/dL (74-106); MAGNESIUM 2.5 mg/dL (1.8-2.4); PHOSPHOROUS 3.2 mg/dL (2.5-4.9); POTASSIUM 3.8 mmol/L (3.5-5.1); SGPT/ALT 9 U/L (13-61); SODIUM 142 mmol/L (136-145); TOT PROT 5.2 g/dl (6.4-8.2)
[2018-08-28] MEDS: PANTOPRAZOLE 40 MG TABLET (FP) PO SCH (09:06)
[2018-08-28] MEDS: PREGABALIN 50 MG CAPSULE PO SCH ×2 (09:06→21:14)
[2018-08-28] MEDS: COLLAGENASE CLOSTRIDIUM HIST. 30 GRAMS TUBE TP SCH ×2 (10:04→10:06)
--- NOTE | 2018-08-28 11:25 | PN ---
Teaching Attending Note Name of Resident: Chandrika Hansen ATTENDING PHYSICIAN STATEMENT I saw and evaluated the patient. I reviewed the resident's note and discussed the case with the resident. I agree with the resident's findings and plan as documented. SUBJECTIVE: SUBJECTIVE: Patient seen and examined in the ICU. Awake and alert. No occult bleeding noted overnight. No CP or SOB. Tolerating PO intake. Intake & Output 08/25/18 08/26/18 08/27/18 08/28/18 23:59 23:59 23:59 23:59 Intake Total 316 773 4064 100 Output Total 650 1050 900 500 Balance -510 -460 200 -400 Weight 242 lb 12.8 oz 239 lb 3.2 oz 234 lb Last Vital Signs Temp Pulse Resp BP Pulse Ox 99.1 F 63 22 H 108/50 L 95 08/28/18 10:00 08/28/18 10:00 08/28/18 10:00 08/28/18 10:00 08/28/18 04:00 Active Medications Al Hydroxide/Mg Hydroxide (Mylanta Oral Suspension -) 30 ml PO Q6H [facility] Last Admin: 08/28/18 09:06 Dose: 30 ml Chlorhexidine Gluconate (Hibiclens For Decolonization -) 1 applic TP HS [facility] Last Admin: 08/27/18 21:12 Dose: 1 applic Collagenase (Santyl -) 1 applic TP DAILY [facility]; Protocol Last Admin: 08/28/18 10:04 Dose: 1 applic Collagenase (Santyl -) 1 applic TP DAILY [facility]; Protocol Last Admin: 08/28/18 10:06 Dose: Not Given Pantoprazole Sodium (Protonix -) 40 mg PO DAILY [facility] Last Admin: 08/28/18 09:06 Dose: 40 mg Pregabalin (Lyrica -) 50 mg PO BID [facility] Last Admin: 08/28/18 09:06 Dose: 50 mg GEN: Awake and alert, NAD at rest PULM: Few scattered rhonchi CV: S1, S2, (+) ESM ABD: +BS, S/S N/T N/D X4Q EXT: (+) PP, (+) edema & chronic foot ulcers (wrapped) Laboratory Results - last 24 hr 08/28/18 08/28/18 05:30 05:30 WBC 5.8 RBC 2.99 L Hgb 9.6 L Hct 28.1 L MCV 94.0 MCH 32.1 MCHC 34.1 RDW 16.1 H Plt Count 184 MPV 9.0 Absolute Neuts (auto) 4.2 Neutrophils % 71.8 Lymphocytes % 11.0 Monocytes % 8.5 Eosinophils % 8.0 H Basophils % 0.7 Nucleated RBC % 0 Sodium 142 Potassium 3.8 Chloride 106 Carbon Dioxide 29 Anion Gap 7 L BUN Creatinine 0.8 Creat Clearance w eGFR > 60 Random Glucose 95 Calcium 8.6 Phosphorus 3.2 Magnesium 2.5 H Total Bilirubin 0.7 AST ALT 9 L Alkaline Phosphatase 85 Total Protein 5.2 L Albumin 2.4 L ASSESSMENT AND PLAN: s/p GI Bleed Acute Blood Loss Anemia CAD +Troponins likely Demand Ischemia PAD Hyperlipidemia - monitor H/H - Normal transfusion thresholds - PPI - pain control - Advance Diet as tolerated - DVT prophylaxis - Floor Dr Reyes
[2018-08-28 12:56] LABS: BLOOD UREA NITROGEN 11 mg/dL (7-18); SGOT/AST 12 U/L (15-37)
--- NOTE | 2018-08-28 15:40 | PATH ---
Surgical Pathology Report Patient Name: RAYA MELGOZA [facility]. Rec. 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 DUODENUM, SECOND PORTION AND BULB, BIOPSY: DUODENAL MUCOSA WITH SEVERE ACUTE AND CHRONIC DUODENITIS. B. STOMACH, ANTRUM, BIOPSY: GASTRIC ANTRAL MUCOSA WITH MODERATE CHRONIC GASTRITIS. IMMUNOHISTOCHEMICAL STAIN FOR H. PYLORI IS NEGATIVE. Electronically Signed Mercy Lindsey M.D. Gross Description A. Received in formalin, labeled "second portion of duodenum and bulb" are 2 jarquin, irregular portions of soft tissue measuring 0.3 and 0.4 cm. in greatest dimension. The specimens are submitted in toto in one cassette. B. Received in formalin, labeled "antrum" is a jarquin, irregular portion of soft tissue measuring 0.5 cm. in greatest dimension. The specimen is submitted in toto in one cassette. 08/27/201808/27/2018
--- NOTE | 2018-08-28 18:23 | PN ---
GI Progress Note Subjective: GI NOte: Tolerating solids. Had brown BM today. Hb stable . Biopsies unremarkable - Objective Vital Signs: Vital Signs Temperature 97.9 F 08/28/18 16:00 Pulse Rate 74 08/28/18 16:00 Respiratory Rate 23 H 08/28/18 16:00 Blood Pressure 119/70 08/28/18 16:00 O2 Sat by Pulse Oximetry (%) 95 08/28/18 04:00 Laboratory Tests 08/23/18 08/25/18 08/27/18 21:00 05:30 05:30 Hgb 9.1 L 9.9 L 10.0 L 08/28/18 05:30 Hgb 9.6 L Constitutional: No Distress ...Auscultate: Yes: Normoactive Bowel Sounds ...Palpate: Yes: Soft, Other (nontender) Labs: CBC, BMP 08/28/18 05:30 08/28/18 05:30 INR, PTT INR 1.08 (0.83-1.09) 08/25/18 05:30 Assessment/Plan Impression: Duodenal bulb ulcer bleed resolved ( no HP on biopsy) Plan: NO GI objections to discharge on PPI Problem List - Problems (1) GI bleed Code(s): K92.2 - GASTROINTESTINAL HEMORRHAGE, UNSPECIFIED Qualifiers: GI bleed type/associated pathology: melena Qualified Code(s): K92.1 - Melena (2) Vomiting Code(s): R11.10 - VOMITING, UNSPECIFIED (3) Peripheral vascular disease Code(s): I73.9 - PERIPHERAL VASCULAR DISEASE, UNSPECIFIED (4) Status post vascular bypass Code(s): Z95.828 - PRESENCE OF OTHER VASCULAR IMPLANTS AND GRAFTS (5) History of intravascular stent placement Code(s): Z95.828 - PRESENCE OF OTHER VASCULAR IMPLANTS AND GRAFTS (6) History of colon polyps Code(s): Z86.010 - PERSONAL HISTORY OF COLONIC POLYPS (7) Anemia Code(s): D64.9 - ANEMIA, UNSPECIFIED Qualifiers: Anemia type: unspecified type Qualified Code(s): D64.9 - Anemia, unspecified (8) Melena Code(s): K92.1 - MELENA
--- NOTE | 2018-08-28 20:20 | PN ---
Progress Note (short form) - Note Progress Note: patient seen and examined in ICU comfortable / denies nausea /abd pain tolerating meals - no vomiting Vital Signs Period Temp Pulse Resp BP Sys/Denis Pulse Ox Last 24 Hr 98.0 F-98.7 F 49-81 15-23 114-142/46-63 98-98 sitting up in bed neck supple heart S1/S2 ireg lungs clear ant / laterally abdomen obese soft no tenderness elicited BS + X 4 Q Ext LE bilat dressing to feet + trace edema CBC, BMP 08/28/18 05:30 08/28/18 05:30 CBC, BMP 08/27/18 05:30 08/27/18 05:30 CBC, BMP 08/26/18 05:30 08/26/18 05:30 CBC, BMP 08/22/18 14:10 08/22/18 05:30 s/p 4 units pRBC Active Medications Al Hydroxide/Mg Hydroxide (Mylanta Oral Suspension -) 30 ml PO Q6HPO KENDY Albuterol Sulfate (Ventolin 0.083% Nebulizer Soln -) 1 amp NEB Q6H PRN PRN Reason: SHORT OF BREATH/WHEEZING Chlorhexidine Gluconate (Hibiclens For Decolonization -) 1 applic TP HS KENDY Collagenase (Santyl -) 1 applic TP DAILY KENDY; Protocol Collagenase (Santyl -) 1 applic TP DAILY KENDY; Protocol Pantoprazole Sodium (Protonix -) 40 mg PO DAILY KENDY Pregabalin (Lyrica -) 50 mg PO BID KENDY ASSESSMENT AND PLAN: #GI Bleed h/h has remained stable / tolerating diet PPi BID transfused 5 units pRBC / 2 FFP bx unremarkable able to leave monitored unit # Anemia 2/2 to GI bleed h/h -05/15 # CAD elevated TNI - demand ischemia likely trend TNI - follow EKG cardio consult appreciated # PVD / PAD not on a/c prior to admission previous GI bleed 02/2018 patient was on Plavix / Eliquis - these where discontinued after that admission Had only been on asa / + ETOH intake Care to LE --wound and dressing care patient was attending wound center as out patient Can transfer out of ICU will need PT / and continued wound care discussed STR Problem List - Problems (1) Obesity (BMI 30-39.9) Code(s): E66.9 - OBESITY, UNSPECIFIED (2) Anemia Code(s): D64.9 - ANEMIA, UNSPECIFIED Qualifiers: Anemia type: unspecified type Qualified Code(s): D64.9 - Anemia, unspecified (3) GI bleed Code(s): K92.2 - GASTROINTESTINAL HEMORRHAGE, UNSPECIFIED Qualifiers: GI bleed type/associated pathology: melena Qualified Code(s): K92.1 - Melena (4) History of colon polyps Code(s): Z86.010 - PERSONAL HISTORY OF COLONIC POLYPS (5) History of intravascular stent placement Code(s): Z95.828 - PRESENCE OF OTHER VASCULAR IMPLANTS AND GRAFTS (6) Peripheral vascular disease Code(s): I73.9 - PERIPHERAL VASCULAR DISEASE, UNSPECIFIED
[2018-08-28] MEDS: ALBUTEROL SO4 0.083% IH SOL 2.5 MG/3 ML VIAL.NEB. NEB PRN (20:41)
[2018-08-28] MEDS: CHLORHEXIDINE GLUCONATE 4% CLEANSER FOR DECOLONIZATION TP SCH (21:15)
[2018-08-28] MEDS: guaiFENesin 600 MG TABLET.ER (FP) PO SCH (23:35)
[2018-08-29] MEDS: MAG HYDROX/AL HYDROX/SIMETH 30 ML UNIT-DOSE CUP PO SCH ×6 (00:40→23:03)
[2018-08-29 07:31] LABS: BASO % 0.7 % (0-2.0); EOS % 11.2 % (0-4.5); HEMATOCRIT 29.2 % (35.4-49); HEMOGLOBIN 9.8 GM/dL (11.7-16.9); LYMPH % 14.2 % (8-40); MCH 31.9 pg (25.7-33.7); MCHC 33.7 g/dl (32.0-35.9); MEAN CELL VOLUME 94.8 fl (80-96); MEAN PLT VOLUME 9.1 fl (7.5-11.1); MONO % 10.3 % (3.8-10.2); NEUT % 63.6 % (42.8-82.8); PLATELET COUNT 184 K/MM3 (134-434); RBC 3.08 M/mm3 (4.00-5.60); RDW 16.6 % (11.9-15.9); WHITE BLOOD COUNT 4.4 K/mm3 (4.0-10.0)
[2018-08-29 07:45] LABS: ALBUMIN 2.5 g/dl (3.4-5.0); ALK PHOS 86 U/L (45-117); ANION GAP 3 MMOL/L (8-16); BILIRUBIN,TOTAL 0.8 mg/dL (0.2-1); BLOOD UREA NITROGEN 12 mg/dL (7-18); CALCIUM 8.3 mg/dL (8.5-10.1); CHLORIDE 105 mmol/L (98-107); CO2 32 mmol/L (21-32); CREATININE 0.9 mg/dL (0.55-1.3); GLUCOSE,RANDOM 106 mg/dL (74-106); MAGNESIUM 2.8 mg/dL (1.8-2.4); PHOSPHOROUS 4.2 mg/dL (2.5-4.9); SGOT/AST 15 U/L (15-37); SGPT/ALT 10 U/L (13-61); SODIUM 140 mmol/L (136-145); TOT PROT 5.6 g/dl (6.4-8.2)
[2018-08-29] MEDS: guaiFENesin 600 MG TABLET.ER (FP) PO SCH (09:53)
[2018-08-29] MEDS: PANTOPRAZOLE 40 MG TABLET (FP) PO SCH (09:53)
[2018-08-29] MEDS: ALBUTEROL SO4 0.083% IH SOL 2.5 MG/3 ML VIAL.NEB. NEB PRN (09:53)
[2018-08-29] MEDS: PREGABALIN 50 MG CAPSULE PO SCH ×2 (09:53→23:02)
--- NOTE | 2018-08-29 10:05 | PN ---
GI Progress Note Subjective: GI NOte; NO pain. Tolerating solids. Still coughing - Objective Vital Signs: Vital Signs Temperature 98.5 F 08/29/18 06:10 Pulse Rate 95 H 08/29/18 06:10 Respiratory Rate 20 08/29/18 06:10 Blood Pressure 116/56 L 08/29/18 06:10 O2 Sat by Pulse Oximetry (%) 95 08/28/18 21:00 Laboratory Tests 08/24/18 08/28/18 08/29/18 05:30 05:30 06:00 WBC 5.8 4.4 Hgb 9.6 L 9.8 L Total Bilirubin 1.6 H AST ALT Alkaline Phosphatase 08/29/18 06:00 WBC Hgb Total Bilirubin 0.8 AST 15 ALT 10 L Alkaline Phosphatase 86 Constitutional: Calm ...Auscultate: Yes: Normoactive Bowel Sounds ...Palpate: Yes: Soft, Other Labs: CBC, BMP 08/29/18 06:00 08/29/18 06:00 INR, PTT INR 1.08 (0.83-1.09) 08/25/18 05:30 Assessment/Plan Impression: Duodenal bulb ulcer bleed resolved ( no HP on biopsy) Plan: NO GI objections to discharge on PPI Problem List - Problems (1) GI bleed Code(s): K92.2 - GASTROINTESTINAL HEMORRHAGE, UNSPECIFIED Qualifiers: GI bleed type/associated pathology: melena Qualified Code(s): K92.1 - Melena (2) Vomiting Code(s): R11.10 - VOMITING, UNSPECIFIED (3) Peripheral vascular disease Code(s): I73.9 - PERIPHERAL VASCULAR DISEASE, UNSPECIFIED (4) Status post vascular bypass Code(s): Z95.828 - PRESENCE OF OTHER VASCULAR IMPLANTS AND GRAFTS (5) History of intravascular stent placement Code(s): Z95.828 - PRESENCE OF OTHER VASCULAR IMPLANTS AND GRAFTS (6) History of colon polyps Code(s): Z86.010 - PERSONAL HISTORY OF COLONIC POLYPS (7) Anemia Code(s): D64.9 - ANEMIA, UNSPECIFIED Qualifiers: Anemia type: unspecified type Qualified Code(s): D64.9 - Anemia, unspecified (8) Melena Code(s): K92.1 - MELENA
[2018-08-29] MEDS ORDERED: PT OWN MED DRAWER 7, Y5N ONE ×2 (10:19→21:21)
[2018-08-29] MEDS: ALBUTEROL SO4 2.5/IPRATROPIUM 0.5 INH SOL 3 ML VIAL.NEB. NEB SCH ×3 (11:35→20:25)
--- NOTE | 2018-08-29 11:43 | PN ---
Progress Note (short form) - Note Progress Note: patient seen and examined in medical [facility] c/o coughing - "chest hurts from coughing so much " recent visitor with URI c/o general malasie comfortable / denies nausea /abd pain tolerating meals - no vomiting Vital Signs Period Temp Pulse Resp BP Sys/Denis Pulse Ox Last 24 Hr 97.3 F-99.8 F 74-95 17-23 112-120/51-70 95 sitting up in bed neck supple heart S1/S2 ireg lungs clear wheezing bilat exp crackles bilat abdomen obese soft no tenderness elicited BS + X 4 Q Ext LE bilat dressing to feet + trace edema CBC, BMP 08/29/18 06:00 08/29/18 06:00 CBC, BMP 08/28/18 05:30 08/28/18 05:30 CBC, BMP 08/27/18 05:30 08/27/18 05:30 Active Medications Al Hydroxide/Mg Hydroxide (Mylanta Oral Suspension -) 30 ml PO Q6HPO [facility] Last Admin: 08/29/18 07:42 Dose: Not Given Albuterol Sulfate (Ventolin 0.083% Nebulizer Soln -) 1 amp NEB Q6H PRN PRN Reason: SHORT OF BREATH/WHEEZING Last Admin: 08/29/18 09:53 Dose: 1 amp Albuterol/Ipratropium (Duoneb -) 1 amp NEB RQID KENDY Chlorhexidine Gluconate (Hibiclens For Decolonization -) 1 applic TP HS [facility] Last Admin: 08/28/18 21:15 Dose: Not Given Collagenase (Santyl -) 1 applic TP DAILY KENDY; Protocol Collagenase (Santyl -) 1 applic TP DAILY KENDY; Protocol Guaifenesin (Mucinex -) 600 mg PO BID [facility] Last Admin: 08/29/18 09:53 Dose: 600 mg Guaifenesin (Mucinex Dm -) 1 tablet PO BID KENDY Pantoprazole Sodium (Protonix -) 40 mg PO DAILY [facility] Last Admin: 08/29/18 09:53 Dose: 40 mg Pregabalin (Lyrica -) 50 mg PO BID [facility] Last Admin: 08/29/18 09:53 Dose: 50 mg ASSESSMENT AND PLAN: #reccent coughing / URI sx flu swab today CXR nebulizer tx QID / mucinex DM #GI Bleed h/h has remained stable / tolerating diet PPi BID transfused 5 units pRBC / 2 FFP bx unremarkable able to leave monitored unit # Anemia 2/2 to GI bleed h/h -05/15 # CAD elevated TNI - demand ischemia likely trend TNI - follow EKG cardio consult appreciated # PVD / PAD not on a/c prior to admission previous GI bleed 02/2018 patient was on Plavix / Eliquis - these where discontinued after that admission Had only been on asa / + ETOH intake Care to LE --wound and dressing care patient was attending wound center as out patient Can transfer out of ICU will need PT / and continued wound care discussed STR Problem List - Problems (1) Obesity (BMI 30-39.9) Code(s): E66.9 - OBESITY, UNSPECIFIED (2) Anemia Code(s): D64.9 - ANEMIA, UNSPECIFIED Qualifiers: Anemia type: unspecified type Qualified Code(s): D64.9 - Anemia, unspecified (3) GI bleed Code(s): K92.2 - GASTROINTESTINAL HEMORRHAGE, UNSPECIFIED Qualifiers: GI bleed type/associated pathology: melena Qualified Code(s): K92.1 - Melena (4) History of colon polyps Code(s): Z86.010 - PERSONAL HISTORY OF COLONIC POLYPS (5) History of intravascular stent placement Code(s): Z95.828 - PRESENCE OF OTHER VASCULAR IMPLANTS AND GRAFTS (6) Peripheral vascular disease Code(s): I73.9 - PERIPHERAL VASCULAR DISEASE, UNSPECIFIED
[2018-08-29] MEDS: COLLAGENASE CLOSTRIDIUM HIST. 30 GRAMS TUBE TP SCH ×2 (12:30→12:31)
[2018-08-29] MEDS ORDERED: diphenhydrAMINE HCL 25 MG CAPSULE (FP) PO PRN (12:58)
[2018-08-29] MEDS ORDERED: diphenhydrAMINE HCL 25 MG CAPSULE (FP) PO ONE (13:00)
[2018-08-29] MEDS ORDERED: HYDROCORTISONE 1% TOPICAL OINT 30 GM TUBE TP PRN (16:30)
[2018-08-29] MEDS: ACETAMINOPHEN 325 MG TABLET (FP) PO PRN (16:37)
[2018-08-29] MEDS: CHLORHEXIDINE GLUCONATE 4% CLEANSER FOR DECOLONIZATION TP SCH (22:27)
[2018-08-29] MEDS: guaiFENesin/D-METHORPHAN HB 1 EACH TAB.ER.12H PO SCH (23:01)
[2018-08-30] MEDS: MAG HYDROX/AL HYDROX/SIMETH 30 ML UNIT-DOSE CUP PO SCH ×4 (06:27→23:30)
[2018-08-30] MEDS: ALBUTEROL SO4 2.5/IPRATROPIUM 0.5 INH SOL 3 ML VIAL.NEB. NEB SCH ×4 (07:45→20:12)
[2018-08-30] MEDS ORDERED: PT OWN MED DRAWER 7, Y5N ONE ×2 (10:03→21:41)
[2018-08-30] MEDS: PREGABALIN 50 MG CAPSULE PO SCH ×2 (10:04→21:52)
[2018-08-30] MEDS: guaiFENesin/D-METHORPHAN HB 1 EACH TAB.ER.12H PO SCH ×2 (10:04→21:52)
[2018-08-30] MEDS: PANTOPRAZOLE 40 MG TABLET (FP) PO SCH (10:05)
[2018-08-30] MEDS: COLLAGENASE CLOSTRIDIUM HIST. 30 GRAMS TUBE TP SCH ×2 (10:36→10:39)
[2018-08-30] MEDS ORDERED: LOPERAMIDE HCL 2 MG CAPSULE PO ONE (11:07)
--- NOTE | 2018-08-30 11:12 | PN ---
Progress Note (short form) - Note Progress Note: 78 y/o male found lying in bed, coughing and c/o of diarrhea x 2 days. Vital Signs Period Temp Pulse Resp BP Sys/Denis Pulse Ox Last 24 Hr 98 F-99.6 F 87-105 18-20 121-129/60-66 94 CBC, BMP 08/29/18 06:00 08/29/18 06:00 HEENT- Normocephalic Neck- supple Lungs- CTAb Heart- S1/S2 Abd- Obese, soft, nt Ext- No LE edema Active Medications Acetaminophen (Tylenol -) 650 mg PO Q6H PRN PRN Reason: PAIN LEVEL 1-5 Last Admin: 08/29/18 16:37 Dose: 650 mg Al Hydroxide/Mg Hydroxide (Mylanta Oral Suspension -) 30 ml PO Q6HPO KENDY Last Admin: 08/30/18 06:27 Dose: 30 ml Albuterol Sulfate (Ventolin 0.083% Nebulizer Soln -) 1 amp NEB Q6H PRN PRN Reason: SHORT OF BREATH/WHEEZING Last Admin: 08/29/18 09:53 Dose: 1 amp Albuterol/Ipratropium (Duoneb -) 1 amp NEB RQID KENDY Last Admin: 08/30/18 07:45 Dose: 1 amp Chlorhexidine Gluconate (Hibiclens For Decolonization -) 1 applic TP HS KENDY Last Admin: 08/29/18 22:27 Dose: Not Given Collagenase (Santyl -) 1 applic TP DAILY KENDY; Protocol Last Admin: 08/30/18 10:36 Dose: 1 applic Collagenase (Santyl -) 1 applic TP DAILY KENDY; Protocol Last Admin: 08/30/18 10:39 Dose: 1 applic Diphenhydramine HCl (Benadryl -) 50 mg PO Q4H PRN PRN Reason: ALLERGY Guaifenesin (Mucinex Dm -) 1 tablet PO BID KENDY Last Admin: 08/30/18 10:04 Dose: 1 tablet Hydrocortisone (Hytone 1% Ointment -) 1 applic TP Q6H PRN PRN Reason: Itching Last Admin: 08/29/18 17:10 Dose: 1 applic Loperamide HCl (Imodium -) 4 mg PO ONCE ONE Stop: 08/30/18 11:08 Pantoprazole Sodium (Protonix -) 40 mg PO DAILY KENDY Last Admin: 08/30/18 10:05 Dose: 40 mg Pregabalin (Lyrica -) 50 mg PO BID [facility] Last Admin: 08/30/18 10:04 Dose: 50 mg ASSESSMENT AND PLAN: #coughing / URI sx CXR nebulizer tx QID / mucinex DM #Diarrhea Imodium ordered #GI Bleed h/h remain stable tolerating diet Cont PPI # Anemia 2/2 to GI bleed trend h/h # CAD elevated TNI - demand ischemia likely trend TNI # PVD / PAD not on a/c prior to admission Local care to Problem List - Problems (1) Obesity (BMI 30-39.9) Code(s): E66.9 - OBESITY, UNSPECIFIED (2) Anemia Code(s): D64.9 - ANEMIA, UNSPECIFIED Qualifiers: Anemia type: unspecified type Qualified Code(s): D64.9 - Anemia, unspecified (3) GI bleed Code(s): K92.2 - GASTROINTESTINAL HEMORRHAGE, UNSPECIFIED Qualifiers: GI bleed type/associated pathology: melena Qualified Code(s): K92.1 - Melena (4) History of colon polyps Code(s): Z86.010 - PERSONAL HISTORY OF COLONIC POLYPS (5) History of intravascular stent placement Code(s): Z95.828 - PRESENCE OF OTHER VASCULAR IMPLANTS AND GRAFTS (6) Peripheral vascular disease Code(s): I73.9 - PERIPHERAL VASCULAR DISEASE, UNSPECIFIED
[2018-08-30 12:56] VITALS: BMI 30.9
[2018-08-30] MEDS: ACETAMINOPHEN 325 MG TABLET (FP) PO PRN (18:56)
[2018-08-30] MEDS: CHLORHEXIDINE GLUCONATE 4% CLEANSER FOR DECOLONIZATION TP SCH (21:52)
[2018-08-31] MEDS: guaiFENesin/D-METHORPHAN HB 1 EACH TAB.ER.12H PO ONE ×2 (01:07→03:48)
[2018-08-31] MEDS: MAG HYDROX/AL HYDROX/SIMETH 30 ML UNIT-DOSE CUP PO SCH ×3 (06:21→18:26)
[2018-08-31 06:55] LABS: BASO % 0.5 % (0-2.0); EOS % 12.8 % (0-4.5); HEMATOCRIT 29.7 % (35.4-49); LYMPH % 17.3 % (8-40); MCH 31.9 pg (25.7-33.7); MCHC 33.7 g/dl (32.0-35.9); MEAN CELL VOLUME 94.7 fl (80-96); MEAN PLT VOLUME 9.1 fl (7.5-11.1); MONO % 10.6 % (3.8-10.2); NEUT % 58.8 % (42.8-82.8); PLATELET COUNT 192 K/MM3 (134-434); RBC 3.13 M/mm3 (4.00-5.60); RDW 16.9 % (11.9-15.9); WHITE BLOOD COUNT 4.8 K/mm3 (4.0-10.0)
[2018-08-31 07:18] LABS: ANION GAP 4 MMOL/L (8-16); BLOOD UREA NITROGEN 13 mg/dL (7-18); CALCIUM 8.6 mg/dL (8.5-10.1); CHLORIDE 106 mmol/L (98-107); CO2 31 mmol/L (21-32); CREATININE 0.9 mg/dL (0.55-1.3); GLUCOSE,RANDOM 89 mg/dL (74-106); POTASSIUM 4.3 mmol/L (3.5-5.1); SODIUM 140 mmol/L (136-145)
[2018-08-31] MEDS: ALBUTEROL SO4 2.5/IPRATROPIUM 0.5 INH SOL 3 ML VIAL.NEB. NEB SCH ×3 (07:35→15:50)
[2018-08-31] MEDS: PREGABALIN 50 MG CAPSULE PO SCH (11:22)
[2018-08-31] MEDS: PANTOPRAZOLE 40 MG TABLET (FP) PO SCH (11:23)
[2018-08-31] MEDS: guaiFENesin/D-METHORPHAN HB 1 EACH TAB.ER.12H PO SCH (11:23)
[2018-08-31] MEDS: COLLAGENASE CLOSTRIDIUM HIST. 30 GRAMS TUBE TP SCH ×2 (11:24→11:25)
[2018-08-31] MEDS: ACETAMINOPHEN 325 MG TABLET (FP) PO PRN (11:26)
[2018-08-31] MEDS ORDERED: predniSONE 10 MG TABLET (UD) PO SCH (12:00)
--- NOTE | 2018-08-31 12:40 | DS ---
Physical Examination Vital Signs: Vital Signs Temperature 98.4 F 08/30/18 16:30 Pulse Rate 80 08/30/18 16:30 Respiratory Rate 20 08/30/18 16:30 Blood Pressure 114/54 L 08/30/18 16:30 O2 Sat by Pulse Oximetry (%) 96 08/30/18 21:00 Findings/Remarks: 78 year old brother ([employer]) with PMH of PVD, MA on ASA), chronic bilateral foot ulcers (being seen at wound care here), and previous GI bleed (s/p clipping) presenting with dark stools for the past day. He is unable to say when stool began to change color. He reports being asymptomatic until day of admission when he became light headed and weak, he recognized as sx he had had previously when he had a GI bleed 02/2018. At that point he was transferred to ER Patient denies fevers, chills, nausea, vomiting, chest pain, abdominal pain, or other symptoms but knows that last time he had this type of bleeding in his stool, he had to have a transfusion ([facility] 03/03) when he had the GI bleed in the past. Denies fevers chills, nausea, vomiting, diarrhea, constipation, abdominal pain, or other symptoms. Admitted to ICU GI and surgical consuly and follow up. recieved transfusion Prbc -5 units and FFp -2 units. Underwent EGD with BX, tolerated procedure well , diet advaance and transfered to [facility] surgical unit. During stay at [facility] surg developed URI sx - apparently contact from visitor, FLU swabs and cxr done at that time negative Patient should continue nebulizer tx and expectorant, DM for coughing ( allergic to codeine ) ASSESSMENT AND PLAN: #reccent coughing / URI sx flu swab negative 08/29/18 CXR no acute pathology nebulizer tx QID / mucinex DM #GI Bleed h/h has remained stable / tolerating diet PPi BID transfused 5 units pRBC / 2 FFP EGD bx unremarkable # Anemia 2/ to GI bleed h/h -05/15 # CAD elevated TNI - demand ischemia likely trend TNI - follow EKG cardio consult appreciated # PVD / PAD not on a/c prior to admission previous GI bleed 02/2018 patient was on Plavix / Eliquis - these where discontinued after that admission Had only been on asa / + ETOH intake Care to LE --wound and dressing care patient was attending wound center as out patient Constitutional: Yes: Well Nourished, No Distress, Calm Eyes: Yes: Conjunctiva Clear, EOM Intact HENT: Yes: Atraumatic, Normocephalic Neck: Yes: Supple, Trachea Midline Cardiovascular: Yes: Regular Rate and Rhythm Respiratory: Yes: CTA Bilaterally, Cough. No: Rales, Rhonchi, Wheezes Gastrointestinal: Yes: Normal Bowel Sounds, Soft, Abdomen, Obese ...Rectal Exam: Yes: Deferred Renal/: Yes: WNL Breast(s): Yes: WNL Musculoskeletal: Yes: WNL, Muscle Weakness Extremities: Yes: Amputation, Other (chronic changes / no edema / clean dry dressing to both feet) Edema: No Peripheral Pulses WNL: Yes Wound/Incision: Yes: Dressing Dry and Intact (both feet) Neurological: Yes: Alert, Oriented, Pre-Existing Deficit Psychiatric: Yes: Alert, Oriented Labs: CBC, BMP 08/31/18 05:45 08/31/18 05:45 Discharge Summary Reason For Visit: ANEMIA,MELENA Current Active Problems Anemia (Acute) GI bleed (Acute) History of colon polyps (Acute) History of intravascular stent placement (Acute) Melena (Acute) Obesity (BMI 30-39.9) (Acute) Peripheral vascular disease (Acute) Status post vascular bypass (Acute) Vomiting (Acute) Condition: Improved - Instructions Disposition: LONGTERM FACILITY - Home Medications Comprehensive Discharge Medication List: Ambulatory Orders Aspirin [ASA -] 81 mg PO DAILY 08/21/18 Atorvastatin Ca [Lipitor] 40 mg PO HS 08/21/18 Diltiazem HCl [Diltiazem ER] 120 mg PO DAILY 08/21/18 Duloxetine HCl 20 mg PO DAILY 08/21/18 Metoprolol Tartrate 25 mg PO DAILY 08/21/18 Pregabalin [Lyrica -] 50 mg PO DAILY 08/21/18 Ranitidine [Zantac -] 150 mg PO BID 08/21/18 Tamsulosin HCl 0.4 mg PO DAILY 08/21/18
[2018-08-31 15:19] VITALS: BP 148/55; PULSE 86; TEMP 98.2
== END 2018-08-31 18:48 | DRG 378 ==
LOC: JER 19:53 → JERBED 21:15 → JICU 23:58 → J8W 08-28 20:07
PROVIDERS: ADMIT Family Medicine; ATTEND Family Medicine
PROC: 30233N1 Transfusion of Nonautologous Red Blood Cells into Peripheral Vein, Percutaneous Approach (ICD-10-PCS; 2018-08-22)
PROC: 30233L1 Transfusion of Nonautologous Fresh Plasma into Peripheral Vein, Percutaneous Approach (ICD-10-PCS; 2018-08-22)
PROC: 30233K1 Transfusion of Nonautologous Frozen Plasma into Peripheral Vein, Percutaneous Approach (ICD-10-PCS; 2018-08-22)
PROC: 0DD68ZX Extraction of Stomach, Via Natural or Artificial Opening Endoscopic, Diagnostic (ICD-10-PCS; principal; 2018-08-27)
DX: K26.4 Chronic or unspecified duodenal ulcer with hemorrhage (principal); D62 Acute posthemorrhagic anemia; I24.8 Other forms of acute ischemic heart disease; J98.11 Atelectasis; F10.10 Alcohol abuse, uncomplicated; E66.9 Obesity, unspecified; Z68.32 Body mass index [BMI] 32.0-32.9, adult; L89.619 Pressure ulcer of right heel, unspecified stage; L89.621 Pressure ulcer of left heel, stage 1; Z89.412 Acquired absence of left great toe; Z89.422 Acquired absence of other left toe(s); Z96.641 Presence of right artificial hip joint; F32.9 Major depressive disorder, single episode, unspecified; G57.93 Unspecified mononeuropathy of bilateral lower limbs; I25.10 Atherosclerotic heart disease of native coronary artery without angina pectoris; E78.5 Hyperlipidemia, unspecified; N40.0 Benign prostatic hyperplasia without lower urinary tract symptoms; Z87.891 Personal history of nicotine dependence; I73.9 Peripheral vascular disease, unspecified; I25.2 Old myocardial infarction; M79.7 Fibromyalgia; G62.9 Polyneuropathy, unspecified; K57.30 Diverticulosis of large intestine without perforation or abscess without bleeding; M19.90 Unspecified osteoarthritis, unspecified site; K40.20 Bilateral inguinal hernia, without obstruction or gangrene, not specified as recurrent; N28.1 Cyst of kidney, acquired; N20.0 Calculus of kidney; Z86.010 Personal history of colon polyps
CPT/HCPCS: 36415; 36430; 36511; 71045-TC-FY; 74174-TC; 80048; 80053; 80076; 82272; 82550; 82607; 82728; 82746; 83540; 83550; 83615; 83735; 84100; 84484; 85025; 85027; 85610; 85730; 86850; 86900; 86901; 86922; 87804; 88305-TC; 93005; 93010; 93306-TC; 94640; 99282-25; J7030; P9017; P9038; P9058

== ENCOUNTER 2020-03-02 14:28 | Inpatient (IN) | payer OTHER ==
--- NOTE | 2020-03-02 14:42 | PDOC ---
Rapid Medical Evaluation Time Seen by Provider: 03/02/20 14:37 Medical Evaluation: Allergies Allergy/AdvReac Type Severity Reaction Status Date / Time codeine Allergy Intermediate Verified 08/21/18 22:44 infliximab Allergy Verified 08/22/18 01:42 03/02/20 14:38 I have performed a brief in-person evaluation of this patient. The patient presents with a chief complaint of: LLE pain/swelling/erythema x 2 days, no f/c. Former smoker w/ h/o IN on asa, PVD, chronic LE ulcers, s/p angioplasty of b/l LE, s/p amp of L 5th toe at [facility] ~ 2 years ago. No cough, SOB, CP or palpitations PMD: Dr Duran Pertinent physical exam findings:stable I have ordered the following:labs The patient will proceed to the ED for further evaluation. 03/02/20 14:47 Discharge Disposition - Diagnosis Leg swelling - Referrals - Patient Instructions - Post Discharge Activity
[2020-03-02 15:35] LABS: BASO % 0.8 % (0-2.0); EOS % 3.7 % (0-4.5); HEMATOCRIT 39.4 % (35.4-49); HEMOGLOBIN 12.7 GM/dL (11.7-16.9); LYMPH % 10.2 % (8-40); MCH 30.5 pg (25.7-33.7); MCHC 32.3 g/dl (32.0-35.9); MEAN CELL VOLUME 94.5 fl (80-96); MEAN PLT VOLUME 9.5 fl (7.5-11.1); MONO % 6.1 % (3.8-10.2); NEUT % 79.2 % (42.8-82.8); PLATELET COUNT 142 K/MM3 (134-434); RBC 4.17 M/mm3 (4.00-5.60); RDW 18.1 % (11.9-15.9); WHITE BLOOD COUNT 8.1 K/mm3 (4.0-10.0)
[2020-03-02 16:08] LABS: ALBUMIN 3.2 g/dl (3.4-5.0); BILIRUBIN,TOTAL 1.2 mg/dL (0.2-1); BLOOD UREA NITROGEN 12.8 mg/dL (7-18); CREATININE 1.2 mg/dL (0.55-1.3); POTASSIUM 4.2 mmol/L (3.5-5.1); TOT PROT 6.3 g/dl (6.4-8.2)
[2020-03-02 16:34] LABS: CALCIUM 8.8 mg/dL (8.5-10.1)
--- NOTE | 2020-03-02 17:23 | PDOC ---
History of Present Illness - General Chief Complaint: Edema Stated Complaint: LEG SWOLLEN Time Seen by Provider: 03/02/20 14:37 History Source: Patient Exam Limitations: No Limitations - History of Present Illness Initial Comments: Bill Wilson 79 M with a PMH of PVD, ME(asa), chronic b/l foot ulcers(healed), GI bleed (s/p clipping), s/p angioplasty of b/l LE, s/p amp L. 5th toe, hx of psoriasis, presents with 5days of LLE swelling, pain, redness. Patient was seen at an outpt clinic on Monday, received keflex 500 qid. Pt reports that the redness is extending up the leg and worsening of swelling. Patient denies any fever, chills, nausea, vomiting, diarrhea, chest pain, abdominal pain, weakness 03/02/20 17:17 Past History - Travel History Traveled outside of the country in the last 30 days: No - Medical History Allergies/Adverse Reactions: Allergies Allergy/AdvReac Type Severity Reaction Status Date / Time codeine Allergy Intermediate Verified 03/02/20 14:51 infliximab Allergy Verified 03/02/20 14:51 Home Medications: Ambulatory Orders Atorvastatin Ca [Lipitor] 40 mg PO HS 08/21/18 Diltiazem HCl [Diltiazem 24Hr ER] 120 mg PO DAILY 08/21/18 Duloxetine HCl 20 mg PO DAILY 08/21/18 Metoprolol Tartrate 25 mg PO DAILY 08/21/18 Ranitidine [Zantac -] 150 mg PO BID 08/21/18 Tamsulosin HCl 0.4 mg PO DAILY 08/21/18 Acetaminophen [Tylenol .Regular Strength -] 650 mg PO Q6H PRN tablet 08/31/18 Albuterol 2.5/Ipratropium 0.5 [Duoneb -] 1 amp NEB RQID amp 08/31/18 Collagenase Clostridium Hist. [Santyl -] 1 applic TP DAILY tube 08/31/18 Collagenase Clostridium Hist. [Santyl -] 1 applic TP DAILY tube 08/31/18 Diphenhydramine HCl [Benadryl Capsule -] 50 mg PO Q4H PRN capsule 08/31/18 Guaifenesin Dm [Mucinex Dm -] 1 tablet PO BID tab.er.12h 08/31/18 Hydrocortisone 1% Ointment [Hytone 1% Ointment -] 1 applic TP Q6H PRN tube 08/31/18 Mag Hydrox/Al Hydrox/Simeth [Mylanta Oral Suspension -] 30 ml PO Q6HPO cup 08/31/18 Pantoprazole Sodium [Protonix -] 40 mg PO BID 30 Days #60 tablet.ec 08/31/18 Pregabalin [Lyrica -] 50 mg PO BID 7 Days #14 capsule MDD 100 08/31/18 Anemia: No Asthma: No Cancer: No Cardiac Disorders: Yes CVA: No COPD: No CHF: No Dementia: No Diabetes: No GI Disorders: No Disorders: No HTN: No Hypercholesterolemia: No Liver Disease: No Seizures: No Thyroid Disease: No - Surgical History Abdominal Surgery: No Appendectomy: No Cardiac Surgery: No Cholecystectomy: No Lung Surgery: No Neurologic Surgery: No Orthopedic Surgery: No - Immunization History Immunization Up to Date: Yes - Psycho-Social/Smoking History Smoking History: Former smoker Have you smoked in the past 12 months: No If you are a former smoker, when did you quit?: 1997 Information on smoking cessation initiated: No - Substance Abuse Hx (Audit-C & DAST Scrn) How often the patient has a drink containing alcohol: 4 0r more times/wk Number of drinks the patient has on a typical day: 1 or 2 Score: In Men: 4 or > Positive; In Women: 3 or > Positive: 4 Screen Result (Pos requires Nsg. Audit-10AR): Positive In the last yr the pt used illegal drug/Rx for NonMed reason: No Score: Yes response is considered Positive: 0 Screen Result (Positive result requires Nsg. DAST-10): Negative Review of Systems - Review of Systems Constitutional: No: Chills, Diaphoresis, Fever, Weakness HEENTM: No: Blurred Vision, Nose Congestion, Throat Pain, Throat Swelling Respiratory: Yes: Cough (chronic). No: SOB at Rest, Wheezing Cardiac (ROS): Yes: Edema (chronic b/l LE edema). No: Chest Pain, Palpitations, Chest Tightness ABD/GI: No: Constipated, Diarrhea, Difficulty Swallowing, Vomiting : No: Burning, Dysuria, Hematuria Musculoskeletal: Yes: Muscle Pain. No: Back Pain Integumentary: Yes: Erythema (b/l LE, L>R), Rash (psoriasis of Left LE) *Physical Exam - Vital Signs Last Vital Signs Temp Pulse Resp BP Pulse Ox 88 18 119/50 L 88 L 03/02/20 14:48 03/02/20 14:48 03/02/20 14:48 03/02/20 14:48 - Physical Exam General Appearance: Yes: Appropriately Dressed. No: Apparent Distress HEENT: positive: EOMI, VIVIAN. negative: Rhinorrhea Neck: positive: Supple. negative: Tender, Carotid bruit Respiratory/Chest: positive: Lungs Clear, Normal Breath Sounds, Rales, Rhonchi, Wheezing. negative: Respiratory Distress Cardiovascular: positive: Regular Rate, S1, S2, Murmur (diastolic murmur along the left sternal border) Vascular Pulses: Carotid (R): 2+, Carotid (L): 2+ Gastrointestinal/Abdominal: positive: Normal Bowel Sounds, Soft. negative: Tender Musculoskeletal: positive: Normal Inspection Extremity: positive: Pedal Edema (chronic), Swelling, Erythema. negative: Calf Tenderness Integumentary: positive: Warm, Erythema (b/l LE, L>R), Clammy, Rash (papules/bumpy lesions LLE) Neurologic: positive: assignment officer II-XII NML intact, Fully Oriented, Alert, Motor Strength 5/5 ED Treatment Course - LABORATORY CBC & Chemistry Diagram: 03/02/20 15:24 03/02/20 15:24 - ADDITIONAL ORDERS Additional order review: Laboratory Results 03/02/20 15:24 Sodium 143 Potassium 4.2 Chloride 107 Carbon Dioxide 30 Anion Gap 6 L BUN 12.8 Creatinine 1.2 Est GFR (CKD-EPI)AfAm 67.20 Est GFR (CKD-EPI)NonAf 57.98 Random Glucose 120 H Calcium 8.8 Total Bilirubin 1.2 H AST 41 H ALT 37 Alkaline Phosphatase 135 H Total Protein 6.3 L Albumin 3.2 L 03/02/20 15:24 RBC 4.17 MCV 94.5 MCHC 32.3 RDW 18.1 H MPV 9.5 Neutrophils % 79.2 D Lymphocytes % 10.2 D Monocytes % 6.1 Eosinophils % 3.7 Basophils % 0.8 Medical Decision Making - Medical Decision Making 9 M with a PMH of PVD, ME(asa), chronic b/l foot ulcers(healed), GI bleed (s/p clipping), s/p angioplasty of b/l LE, s/p amp L. 5th toe, hx of psoriasis, presents with 5days of LLE swelling, pain, redness. #cellulitis of LLE #r/o DVT #r/o Osteomyelitis - Keflex 500mg, on 4th day - CBC, CMP, UA - EKG - CXR - XR leg TIB/FIB-Left - u/s b/l LE: - Dispo: adm for in patient IV antibiotics 03/02/20 17:23 03/02/20 18:39 Discharge - Discharge Information Problems reviewed: Yes Clinical Impression/Diagnosis: Leg swelling Cellulitis Qualifiers: Site of cellulitis of extremity: lower extremity Laterality: left - Admission Yes - Follow up/Referral Referrals: Sylvain Vila [Primary Care Provider] - - Patient Discharge Instructions - Post Discharge Activity
[2020-03-02] MEDS ORDERED: CLINDAMYCIN 600MG PREMIX IVPB 600 MG/50 ML BAG IVPB ONE ×2 (18:21→20:07)
--- NOTE | 2020-03-02 18:34 | HP ---
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 History Source: Patient, Medical Record Limitations to Obtaining History: No Limitations - Past Medical History CARDIAC CATH RN: No: Alzheimer's, CVA, Dementia, Migraine, Multiple Sclerosis, Peripheral Neuropathy, Parkinson's, Seizure, Syncope, TIA, Vertigo, Other Cardiovascular: Yes: HTN, Hyperlipdemia, NV Pulmonary: No: Asthma, Bronchitis, Cancer, COPD, O2 Dependent, Pneumonia, Previously Intubated, Pulmonary Embolus, Pulmonary Fibrosis, Sleep Apnea, Other Gastrointestinal: Yes: GI Bleed (s/p clipping) Hepatobiliary: No: Cirrhosis, Cholelithiasis, Cholecystitis, Choledocholithiasis, Hepatitis A, Hepatitis B, Hepatitis C, Other Renal/: Yes: BPH Heme/Onc: No: Anemia, B12 Deficiency, Bleeding Disorder, Cancer, Current Chemotherapy, Current Radiation Therapy, Hemochromatosis, Hypercoaguable State, Myeloproliferative Synd, Sickle Cell Disease, Sickle Cell Trait, Thrombocytopenia, Other Infectious Disease: No: AIDS, C-Diff, Herpes Zoster, HIV, MRSA, STD's, Tuberculosis, VREF, Other Psych: Yes: Depression Musculoskeletal: Yes: Chronic low back pain Rheumatology: Yes: Fibromyalgia ENT: No: Allergic Rhinitis, Sinusitis, Other Endocrine: No: [place]'s Disease, Garrett's Disease, Diabetes Insipidus, Di abetes Mellitus, Hyperparathyroidism, Hyperthyroidism, Hypothyroidism, Osteopenia, SIADH, Other Dermatology: No: Basal Cell, Cellulitis, Eczema, Melanoma, Psoriasis, Squamous Cell, Other - Past Surgical History Past Surgical History: Yes: Amputation, Colonoscopy, Joint Replacement, Laminectomy, Upper Endoscopy - Smoking History Smoking history: Former smoker Have you smoked in the past 12 months: No If you are a former smoker, when did you quit?: 1997 - Alcohol/Substance Use Hx Alcohol Use: Yes (Occasional) - Social History ADL: Support Services Occupation: [employer] History of Recent Travel: No Home Medications - Allergies Allergies/Adverse Reactions: Allergies Allergy/AdvReac Type Severity Reaction Status Date / Time codeine Allergy Intermediate Verified 03/02/20 14:51 infliximab Allergy Verified 03/02/20 14:51 - Home Medications Home Medications: Ambulatory Orders Atorvastatin Ca [Lipitor] 40 mg PO HS 08/21/18 Diltiazem HCl [Diltiazem 24Hr ER] 120 mg PO DAILY 08/21/18 Duloxetine HCl 20 mg PO DAILY 08/21/18 Metoprolol Tartrate 25 mg PO DAILY 08/21/18 Ranitidine [Zantac -] 150 mg PO BID 08/21/18 Tamsulosin HCl 0.4 mg PO DAILY 08/21/18 Acetaminophen [Tylenol .Regular Strength -] 650 mg PO Q6H PRN tablet 08/31/18 Albuterol 2.5/Ipratropium 0.5 [Duoneb -] 1 amp NEB RQID amp 08/31/18 Collagenase Clostridium Hist. [Santyl -] 1 applic TP DAILY tube 08/31/18 Collagenase Clostridium Hist. [Santyl -] 1 applic TP DAILY tube 08/31/18 Diphenhydramine HCl [Benadryl Capsule -] 50 mg PO Q4H PRN capsule 08/31/18 Guaifenesin Dm [Mucinex Dm -] 1 tablet PO BID tab.er.12h 08/31/18 Hydrocortisone 1% Ointment [Hytone 1% Ointment -] 1 applic TP Q6H PRN tube 08/31/18 Mag Hydrox/Al Hydrox/Simeth [Mylanta Oral Suspension -] 30 ml PO Q6HPO cup 08/31/18 Pantoprazole Sodium [Protonix -] 40 mg PO BID 30 Days #60 tablet.ec 08/31/18 Pregabalin [Lyrica -] 50 mg PO BID 7 Days #14 capsule MDD 100 08/31/18 Review of Systems - Review of Systems Constitutional: reports: No Symptoms Eyes: reports: No Symptoms HENT: reports: No Symptoms Neck: reports: No Symptoms Cardiovascular: reports: No Symptoms Respiratory: reports: No Symptoms Gastrointestinal: reports: No Symptoms Genitourinary: reports: No Symptoms Breasts: reports: No Symptoms Reported Musculoskeletal: reports: Muscle Weakness Integumentary: reports: No Symptoms Neurological: reports: Unsteady Gait, Weakness Endocrine: reports: No Symptoms Hematology/Lymphatic: reports: No Symptoms Psychiatric: reports: Depression Physical Examination Vital Signs: Vital Signs Temperature Pulse Rate 88 03/02/20 14:48 Respiratory Rate 18 03/02/20 14:48 Blood Pressure 119/50 L 03/02/20 14:48 O2 Sat by Pulse Oximetry (%) 88 L 03/02/20 14:48 Constitutional: Yes: Well Nourished, No Distress, Calm Eyes: Yes: Conjunctiva Clear, EOM Intact HENT: Yes: Atraumatic, Normocephalic Neck: Yes: Supple, Trachea Midline Cardiovascular: Yes: Regular Rate and Rhythm Respiratory: Yes: Regular, CTA Bilaterally Gastrointestinal: Yes: Normal Bowel Sounds, Soft, Abdomen, Obese ...Rectal Exam: Yes: Deferred Renal/: Yes: WNL Breast(s): Yes: WNL Musculoskeletal: Yes: Muscle Weakness Extremities: Yes: Erythema (L>R) Edema: Yes Edema: LLE: 2+, RLE: 2+ Peripheral Pulses WNL: Yes Integumentary: Yes: Erythema (Both lower legs L>R) Neurological: Yes: Alert, Oriented, Unsteady Gait, Weakness ...Motor Strength: LLE (pain erythema and edema), RLE (mild erythema and edema) Psychiatric: Yes: Alert, Oriented Labs: CBC, BMP 03/02/20 15:24 03/02/20 15:24 Imaging - Results Chest X-ray: Report Reviewed EKG: Report Reviewed Other: Report Reviewed (lab data reviewed) Problem List - Problems (1) Cellulitis Code(s): L03.90 - CELLULITIS, UNSPECIFIED Qualifiers: Site of cellulitis of extremity: lower extremity Laterality: left (2) Leg swelling Code(s): M79.89 - OTHER SPECIFIED SOFT TISSUE DISORDERS (3) Anemia Code(s): D64.9 - ANEMIA, UNSPECIFIED Qualifiers: Anemia type: unspecified type Qualified Code(s): D64.9 - Anemia, unspecified (4) GI bleed Code(s): K92.2 - GASTROINTESTINAL HEMORRHAGE, UNSPECIFIED Qualifiers: GI bleed type/associated pathology: melena Qualified Code(s): K92.1 - M veronique (5) History of colon polyps Code(s): Z86.010 - PERSONAL HISTORY OF COLONIC POLYPS (6) History of intravascular stent placement Code(s): Z95.828 - PRESENCE OF OTHER VASCULAR IMPLANTS AND GRAFTS (7) Melena Code(s): K92.1 - MELENA (8) Obesity (BMI 30-39.9) Code(s): E66.9 - OBESITY, UNSPECIFIED (9) Peripheral vascular disease Code(s): I73.9 - PERIPHERAL VASCULAR DISEASE, UNSPECIFIED (10) Status post vascular bypass Code(s): Z95.828 - PRESENCE OF OTHER VASCULAR IMPLANTS AND GRAFTS (11) Vomiting Code(s): R11.10 - VOMITING, UNSPECIFIED Assessment/Plan Assessment/plan: acute cellulitis of the left lower leg, acute erythema and edema of both lower legs L>R, old inferior wall myocardial infarction, s/p angioplasty b/l LE, HTN, HLD, PVD, s/p amputation of the left 5th toe, obesity; IV Clindamycin for cellulitis of left lower leg, consult to ID, DVT/GI prophylaxis, physical therapy, diltiazem and metoprolol for HTN, atorvastatin for HLD, tamsulosin for BPH, duloxetine for depression.
[2020-03-02 18:52] LABS: URINE APPEARANCE Clear; URINE BILIRUBIN Negative (NEGATIVE); URINE COLOR Yellow; URINE GLUCOSE (UA) Negative (NEGATIVE); URINE KETONE Trace (NEGATIVE); URINE LEUK ESTERASE Negative (NEGATIVE); URINE NITRITE Negative (NEGATIVE); URINE PROTEIN Trace (NEGATIVE); URINE UROBILINOGEN 4.0 E.U/dl mg/dL (0.2-1.0)
[2020-03-02] MEDS ORDERED: ACETAMINOPHEN 325 MG TABLET (FP) PO PRN (19:45)
[2020-03-02] MEDS ORDERED: PANTOPRAZOLE 40 MG TABLET PO SCH (19:45)
[2020-03-02] MEDS ORDERED: MAG HYDROX/AL HYDROX/SIMETH 30 ML UNIT-DOSE CUP PO PRN (19:49)
[2020-03-02] MEDS ORDERED: diphenhydrAMINE HCL 50 MG CAPSULE PO PRN ×2 (19:50→19:51)
[2020-03-02] MEDS ORDERED: ALBUTEROL SO4 2.5/IPRATROPIUM 0.5 INH SOL 3 ML VIAL.NEB. NEB SCH (20:00)
[2020-03-02] MEDS ORDERED: ALBUTEROL SO4 2.5/IPRATROPIUM 0.5 INH SOL 3 ML VIAL.NEB. NEB ONE (20:07)
--- NOTE | 2020-03-02 21:10 | PDOC ---
Documentation entered by Gayatri Yan SCRIBE, acting as scribe for Peewee Joya DO. Peewee Joya DO: This documentation has been prepared by the Yuriy millan Xhesika, SCRIBE, under my direction and personally reviewed by me in its entirety. I confirm that the documentation accurately reflects all work, treatment, procedures, and medical decision making performed by me. Attending Attestation - Resident Resident Name: Mundo Joaquin - ED Attending Attestation I have performed the following: I have examined & evaluated the patient, The case was reviewed & discussed with the resident, I agree w/resident's findings & plan - HPI HPI: 03/02/20 17:57 see resident HPI - Physicial Exam PE: 03/02/20 17:57 agree with resident exam - Medical Decision Making 03/02/20 17:51 79y/o M PMH of PPD, ME, chronic BL foot ulcer, prior L toe amputation who presents to the ED with 5 days of LLE swelling, pain, redness. Pt was seen by [employer] [facility] at living facility who noticed LLE redness and edema spreading. Pt denies fever but admits to pain Pt denies loss of sensation PE: pt is well appearing intact but decreased DP pulses in feet psoriatic rash to dorsum of L foot with 5th metatarsal amputation, no foot drop LLE erythematous with streaking warmth and edema 3-4+ compared to right A/P: plan to admit for IV abx venous doppler to r/o DVT re-evaluation Discharge - Discharge Information Problems reviewed: Yes Clinical Impression/Diagnosis: Leg swelling Cellulitis Qualifiers: Site of cellulitis of extremity: lower extremity Laterality: left Condition: Stable Disposition: HOME - Follow up/Referral - Patient Discharge Instructions - Post Discharge Activity
[2020-03-02] MEDS: PANTOPRAZOLE 40 MG TABLET PO SCH (22:23)
[2020-03-02] MEDS: ATORVASTATIN CA 40 MG TABLET (FP) PO SCH (22:23)
[2020-03-02] MEDS: HEPARIN NA (PORCINE) 5,000 UNITS/ML 1ML VIAL SQ SCH (22:23)
[2020-03-02] MEDS: PREGABALIN 50 MG CAPSULE PO SCH (22:23)
[2020-03-02] MEDS ORDERED: diphenhydrAMINE HCL 25 MG CAPSULE (FP) PO PRN (22:49)
[2020-03-03] MEDS: HEPARIN NA (PORCINE) 5,000 UNITS/ML 1ML VIAL SQ SCH ×3 (05:47→21:39)
[2020-03-03] MEDS ORDERED: INSULIN (NOVOLOG) ASPART 100 UNITS/ML 10ML VIAL ONE (07:01)
[2020-03-03 07:49] LABS: BASO % 0.9 % (0-2.0); EOS % 3.9 % (0-4.5); HEMATOCRIT 37.7 % (35.4-49); HEMOGLOBIN 12.3 GM/dL (11.7-16.9); LYMPH % 13.6 % (8-40); MCH 30.4 pg (25.7-33.7); MCHC 32.5 g/dl (32.0-35.9); MEAN CELL VOLUME 93.6 fl (80-96); MEAN PLT VOLUME 9.8 fl (7.5-11.1); MONO % 5.6 % (3.8-10.2); PLATELET COUNT 126 K/MM3 (134-434); RBC 4.03 M/mm3 (4.00-5.60); RDW 18.2 % (11.9-15.9); WHITE BLOOD COUNT 6.9 K/mm3 (4.0-10.0)
[2020-03-03 08:23] LABS: ALBUMIN 3.1 g/dl (3.4-5.0); BILIRUBIN,TOTAL 1.2 mg/dL (0.2-1); BLOOD UREA NITROGEN 10.7 mg/dL (7-18); CALCIUM 8.7 mg/dL (8.5-10.1); CREATININE 0.9 mg/dL (0.55-1.3); POTASSIUM 3.8 mmol/L (3.5-5.1)
--- NOTE | 2020-03-03 08:37 | PN ---
Progress Note, Physician Chief Complaint: Patient seen and examined at the bedside, no acute events from last night, pain and erythema gradually subsiding of LLE. 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 - Current Medication List Current Medications: Active Medications Acetaminophen (Tylenol -) 650 mg PO Q6H PRN PRN Reason: PAIN LEVEL 6-10 Last Admin: 03/03/20 06:40 Dose: 650 mg Documented by: Al Hydroxide/Mg Hydroxide (Mylanta Oral Suspension -) 30 ml PO Q6H PRN PRN Reason: DYSPEPSIA Atorvastatin Calcium (Lipitor -) 40 mg PO HS [facility] Last Admin: 03/02/20 22:23 Dose: 40 mg Documented by: Diltiazem HCl (Cardizem Cd -) 120 mg PO DAILY [facility] Diphenhydramine HCl (Benadryl -) 50 mg PO Q4H PRN PRN Reason: ITCHING OR INSOMNIA Duloxetine HCl (Cymbalta -) 20 mg PO DAILY [facility] Heparin Sodium (Porcine) (Heparin -) 5,000 unit SQ TID [facility] Last Admin: 03/03/20 05:47 Dose: 5,000 unit Documented by: Metoprolol Tartrate (Lopressor -) 25 mg PO DAILY [facility] Pantoprazole Sodium (Protonix -) 40 mg PO BID [facility] Last Admin: 03/02/20 22:23 Dose: 40 mg Documented by: Pregabalin (Lyrica -) 50 mg PO BID [facility] Last Admin: 03/02/20 22:23 Dose: 50 mg Documented by: Tamsulosin HCl (Flomax -) 0.4 mg PO DAILY@0830 [facility] - Objective Vital Signs: Vital Signs Temperature 97.8 F 03/03/20 05:56 Pulse Rate 84 03/03/20 05:56 Respiratory Rate 20 03/03/20 06:36 Blood Pressure 116/76 03/03/20 05:56 O2 Sat by Pulse Oximetry (%) 91 L 03/03/20 06:36 Constitutional: Yes: Well Nourished, Calm, Mild Distress Eyes: Yes: Conjunctiva Clear, EOM Intact HENT: Yes: Atraumatic, Normocephalic Neck: Yes: Supple, Trachea Midline Cardiovascular: Yes: Regular Rate and Rhythm Respiratory: Yes: Regular, CTA Bilaterally Gastrointestinal: Yes: Normal Bowel Sounds, Soft, Abdomen, Obese ...Rectal Exam: Yes: Deferred Genitourinary: Yes: WNL Breast(s): Yes: WNL Musculoskeletal: Yes: Back Pain, Muscle Weakness Extremities: Yes: Erythema (Both lower legs L>R) Edema: Yes Edema: LLE: 2+, RLE: 2+ Integumentary: Yes: Erythema (Both lower legs L>R) Wound/Incision: Yes: Open to air Neurological: Yes: Alert, Oriented, Unsteady Gait, Weakness ...Motor Strength: LLE (muscle weakness), RLE (muscle weakness) Psychiatric: Yes: Alert, Oriented Labs: CBC, BMP 03/03/20 06:51 - ....Imaging Other: Report Reviewed (lab data reviewed) Problem List - Problems (1) Cellulitis Code(s): L03.90 - CELLULITIS, UNSPECIFIED Qualifiers: Site of cellulitis of extremity: lower extremity Laterality: left (2) Leg swelling Code(s): M79.89 - OTHER SPECIFIED SOFT TISSUE DISORDERS (3) Anemia Code(s): D64.9 - ANEMIA, UNSPECIFIED Qualifiers: Anemia type: unspecified type Qualified Code(s): D64.9 - Anemia, unspecified (4) GI bleed Code(s): K92.2 - GASTROINTESTINAL HEMORRHAGE, UNSPECIFIED Qualifiers: GI bleed type/associated pathology: melena Qualified Code(s): K92.1 - Melena (5) History of colon polyps Code(s): Z86.010 - PERSONAL HISTORY OF COLONIC POLYPS (6) History of intravascular stent placement Code(s): Z95.828 - PRESENCE OF OTHER VASCULAR IMPLANTS AND GRAFTS (7) Melena Code(s): K92.1 - MELENA (8) Obesity (BMI 30-39.9) Code(s): E66.9 - OBESITY, UNSPECIFIED (9) Peripheral vascular disease Code(s): I73.9 - PERIPHERAL VASCULAR DISEASE, UNSPECIFIED (10) Status post vascular bypass Code(s): Z95.828 - PRESENCE OF OTHER VASCULAR IMPLANTS AND GRAFTS (11) Vomiting Code(s): R11.10 - VOMITING, UNSPECIFIED Assessment/Plan Assessment/plan: acute cellulitis of the left lower leg, erythema and edema of both lower legs, HTN, HLD, peripheral neuropathy, s/p amputation of the left 5th toe, PVD, s/p intravascular stent placement, history of GI bleeding, s/p vascular bypass; IV Clindamycin for acute cellulitis of left lower leg, DVT/GI prophylaxis with SQ Heparin and oral Pantoprazole, atorvastatin for HLD, metoprolol and diltiazem for HTN, Lyrical for neuropathic pain, Duloxetine for depression, physical therapy, oxygen 2L/min via nasal cannula, consult to ID pending, oxycodone for low back pain.
--- NOTE | 2020-03-03 09:09 | EKG ---
Test Reason : Blood Pressure : / mmHG Vent. Rate : 089 BPM Atrial Rate : 089 BPM P-R Int : 174 ms QRS Dur : 134 ms QT Int : 384 ms P-R-T Axes : 083 -19 -05 degrees QTc Int : 467 ms POOR DATA QUALITY, INTERPRETATION MAY BE ADVERSELY AFFECTED NORMAL SINUS RHYTHM RIGHT BUNDLE BRANCH BLOCK INFERIOR INFARCT (CITED ON OR BEFORE 21-AUG-2018) ABNORMAL ECG Confirmed by Shin Palacios MD ([id number]) on 03/03/2020 9:08:32 AM Referred By: Confirmed By:Shin Palacios MD
[2020-03-03] MEDS: PANTOPRAZOLE 40 MG TABLET PO SCH ×2 (09:21→21:38)
[2020-03-03] MEDS: DULoxetine HCL 20 MG CAPSULE.DR PO SCH (09:21)
[2020-03-03] MEDS: METOPROLOL TARTRATE 25 MG TABLET (FP) PO SCH (09:21)
[2020-03-03] MEDS: PREGABALIN 50 MG CAPSULE PO SCH ×2 (09:21→21:39)
[2020-03-03] MEDS: TAMSULOSIN HCL 0.4 MG CAP PO SCH (09:22)
[2020-03-03] MEDS: oxyCODONE HCL 5 MG TABLET PO PRN ×2 (09:22→21:40)
[2020-03-03] MEDS ORDERED: PT OWN MED DRAWER 7, Y5N ONE (10:20)
--- NOTE | 2020-03-03 13:31 | PN ---
Progress Note (short form) - Note Progress Note: ID CONSULT DICTATED BILATERAL LE CELLULITIS R/O SEPSIS SECONDARY TO SKIN SOURCE HX PSORIASIS/ PSORIATIC ARTHRITIS OBTAIN BC EMPIRIC CEFTRIAXONE/ VANCOMYCIN
--- NOTE | 2020-03-03 13:42 | CONS ---
INFECTIOUS DISEASE CONSULTATION DATE OF CONSULTATION: DATE OF DICTATION: 03/03/2020 HISTORY: The patient is a 79-year-old male nondiabetic with peripheral vascular disease, evaluated for cellulitis of the lower extremities bilaterally. The patient states he was well until February 26. He began to develop worsening erythema, warmth and swelling of the lower extremities bilaterally. He had presented to his primary care physician on March 02 where he was prescribed Keflex. Patient was able to take a couple doses before he presented to the emergency room. He was seen in the emergency room on March 02 when he was found to have bilateral lower extremity cellulitis. He was empirically treated with clindamycin. The patient denies any traumatic injury to his lower extremities. No insect or animal bites or scratches. He does have a history of psoriatic arthritis and psoriasis. He denies prior serious soft tissue infection requiring hospitalization. No documented history of MRSA. He was in the past on infliximab; however, has not been on that agent in the recent past. PAST MEDICAL HISTORY: Positive for peripheral vascular disease, coronary artery disease, myocardial infarction, status post angioplasty of the lower extremities bilaterally, status post amputation of the left 5th toe. ALLERGIES: To CODEINE and INFLIXAMAB. MEDICATIONS: Include Lipitor, diltiazem, metoprolol, Zantac, Flomax, albuterol, Lyrica. SOCIAL HISTORY: Lives at home in the community. He is a former smoker. Occasional EtOH. 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 SYSTEMS REVIEW: Neurologic: No loss of consciousness, seizure activity, focal weakness. Cardiac: Negative chest pain or palpitations. Respiratory: Negative cough or sputum production. Gastrointestinal: Negative vomiting or diarrhea. Genitourinary: Negative for urinary tract infection. LABORATORY DATA: White count 6.9, hematocrit 37.7, platelet count 126. Creatinine 0.9, total bilirubin 1.2, alkaline phosphatase 115, AST 29. Chest x-ray negative. Doppler exam negative for DVT. PHYSICAL EXAMINATION: General: He is awake. He is somewhat chronically ill appearing. Vital Signs: Temperature 98.4, blood pressure 155/84, pulse 78 regular, respirations 20 per minute. HEENT: Sclerae are anicteric. Heart: Sounds S1, S2. Lungs: Clear. Abdomen: Obese, soft, nontender. Extremities: Bilateral lower extremity edema. There is confluent shiny erythema present on the lower extremities bilaterally, left greater than right. They are warm to touch. No crepitus or fluctuance. No lymphangitic streaking. There are what appear to be psoriatic lesions present on the dorsal aspect of both feet. He reports that these are not new and unchanged in appearance. IMPRESSION: 1. Cellulitis, lower extremities bilaterally. 2. Rule out sepsis secondary to skin source. 3. History of psoriasis and psoriatic arthritis. 4. Peripheral vascular disease. Will obtain blood cultures. Empiric antibiotic coverage with vancomycin and ceftriaxone. Local wound care, elevation, analgesics. Thank you for the kind referral. BELLO PETERSEN M.D. [id number]
[2020-03-03] MEDS ORDERED: DEXTROSE 5%-WATER 100 ML IVPB ONE (14:02)
[2020-03-03] MEDS: CEFTRIAXONE 2 GM in DEXTROSE 5%-WATER 100 ML IVPB SCH (14:16)
[2020-03-03] MEDS: VANCOMYCIN 1 GRAM (PRE-DOCKED) 1,000 MG/250 ML BAG IVPB SCH (14:16)
[2020-03-03] MEDS: ATORVASTATIN CA 40 MG TABLET (FP) PO SCH (21:39)
[2020-03-03] MEDS: ACETAMINOPHEN 325 MG TABLET (FP) PO PRN (21:40)
[2020-03-04] MEDS: VANCOMYCIN 1 GRAM (PRE-DOCKED) 1,000 MG/250 ML BAG IVPB SCH ×2 (02:23→13:39)
[2020-03-04] MEDS: HEPARIN NA (PORCINE) 5,000 UNITS/ML 1ML VIAL SQ SCH ×3 (06:07→20:59)
[2020-03-04 07:40] LABS: BASO % 0.6 % (0-2.0); EOS % 5.7 % (0-4.5); HEMATOCRIT 36.9 % (35.4-49); HEMOGLOBIN 11.9 GM/dL (11.7-16.9); LYMPH % 14.1 % (8-40); MCH 30.5 pg (25.7-33.7); MCHC 32.2 g/dl (32.0-35.9); MEAN CELL VOLUME 94.5 fl (80-96); MEAN PLT VOLUME 10.1 fl (7.5-11.1); MONO % 6.1 % (3.8-10.2); NEUT % 73.5 % (42.8-82.8); PLATELET COUNT 124 K/MM3 (134-434); RDW 18.2 % (11.9-15.9); WHITE BLOOD COUNT 5.8 K/mm3 (4.0-10.0)
[2020-03-04] MEDS: ACETAMINOPHEN 325 MG TABLET (FP) PO PRN ×2 (08:57→21:01)
[2020-03-04] MEDS: TAMSULOSIN HCL 0.4 MG CAP PO SCH (08:57)
[2020-03-04] MEDS: oxyCODONE HCL 5 MG TABLET PO PRN ×2 (08:58→20:59)
[2020-03-04] MEDS ORDERED: PT OWN MED DRAWER 7, Y5N ONE (10:03)
[2020-03-04] MEDS ORDERED: DEXTROSE 5%-WATER 100 ML IVPB ONE (10:04)
[2020-03-04] MEDS: PREGABALIN 50 MG CAPSULE PO SCH ×2 (10:13→20:59)
[2020-03-04] MEDS: METOPROLOL TARTRATE 25 MG TABLET (FP) PO SCH (10:14)
[2020-03-04] MEDS: CEFTRIAXONE 2 GM in DEXTROSE 5%-WATER 100 ML IVPB SCH (10:14)
[2020-03-04] MEDS: PANTOPRAZOLE 40 MG TABLET PO SCH ×2 (10:14→20:59)
[2020-03-04] MEDS: DULoxetine HCL 20 MG CAPSULE.DR PO SCH (10:19)
--- NOTE | 2020-03-04 10:36 | PN ---
Progress Note, Physician History of Present Illness: AWAKE , ALERT IN BED NO C/O LEG PAIN NO FEVER/ CHILLS BC PRELIM (-) THROMBOCYTOPENIA NOTED - Current Medication List Current Medications: Active Medications Acetaminophen (Tylenol -) 325 mg PO Q6H PRN PRN Reason: PAIN LEVEL 6-10 Last Admin: 03/04/20 08:57 Dose: 325 mg Documented by: Al Hydroxide/Mg Hydroxide (Mylanta Oral Suspension -) 30 ml PO Q6H PRN PRN Reason: DYSPEPSIA Atorvastatin Calcium (Lipitor -) 40 mg PO HS [facility] Last Admin: 03/03/20 21:39 Dose: 40 mg Documented by: Diltiazem HCl (Cardizem Cd -) 120 mg PO DAILY [facility] Last Admin: 03/04/20 10:13 Dose: 120 mg Documented by: Diphenhydramine HCl (Benadryl -) 50 mg PO Q4H PRN PRN Reason: ITCHING OR INSOMNIA Duloxetine HCl (Cymbalta -) 20 mg PO DAILY [facility] Last Admin: 03/04/20 10:19 Dose: 20 mg Documented by: Heparin Sodium (Porcine) (Heparin -) 5,000 unit SQ TID [facility] Last Admin: 03/04/20 06:07 Dose: 5,000 unit Documented by: Ceftriaxone Sodium 2 gm/ (Dextrose) 100 mls @ 200 mls/hr IVPB DAILY [facility]; Protocol Last Admin: 03/04/20 10:14 Dose: 200 mls/hr Documented by: Vancomycin HCl (Vancomycin (Pre-Docked)) 1,000 mg in 250 mls @ 166.667 mls/hr IVPB Q12H [facility]; Protocol Last Admin: 03/04/20 02:23 Dose: 166.667 mls/hr Documented by: Metoprolol Tartrate (Lopressor -) 25 mg PO DAILY [facility] Last Admin: 03/04/20 10:14 Dose: 25 mg Documented by: Oxycodone HCl (Roxicodone -) 5 mg PO Q6H PRN PRN Reason: PAIN LEVEL 6-10 Last Admin: 03/04/20 08:58 Dose: 5 mg Documented by: Pantoprazole Sodium (Protonix -) 40 mg PO BID [facility] Last Admin: 03/04/20 10:14 Dose: 40 mg Documented by: Pregabalin (Lyrica -) 50 mg PO BID [facility] Last Admin: 03/04/20 10:13 Dose: 50 mg Documented by: Tamsulosin HCl (Flomax -) 0.4 mg PO DAILY@0830 [facility] Last Admin: 03/04/20 08:57 Dose: 0.4 mg Documented by: - Objective Vital Signs: Vital Signs Temperature 97.6 F 03/04/20 06:00 Pulse Rate 90 03/04/20 06:00 Respiratory Rate 20 03/04/20 06:00 Blood Pressure 148/67 03/04/20 06:00 O2 Sat by Pulse Oximetry (%) 95 03/04/20 06:00 Constitutional: Yes: No Distress Eyes: Yes: Conjunctiva Clear Cardiovascular: Yes: Regular Rate and Rhythm, S1, S2 Respiratory: Yes: CTA Bilaterally Gastrointestinal: Yes: Normal Bowel Sounds, Soft. No: Tenderness Extremities: Yes: Other (+ B/L LE EDEMA/ ERYTHEMA/ WARMTH + LYMPHANGITIS) Edema: Yes Labs: CBC, BMP 03/04/20 06:20 03/03/20 06:51 Assessment/Plan BILATERAL LE CELLULITIS PSORIASIS/ PSORIATIC ARTHRITIS THROMBOCYTOPENIA COVID-19 (-) CONTINUE VANCOMYCIN/ CEFTRIAXONE CHECK VANCOMYCIN LEVEL ELEVATION
--- NOTE | 2020-03-04 10:39 | PN ---
Progress Note, Physician Chief Complaint: Patient seen and examined at the bedside, no acute events from last night, afebrile. History of Present Illness: This 79 yr old w/m with PMH of HLD, HTN, PVD, psoriasis, psoriatic arthritis, peripheral neuropathy, laminectomy lumbar spine admitted via ER with an acute bilateral cellulitis of lower legs. - Current Medication List Current Medications: Active Medications Acetaminophen (Tylenol -) 325 mg PO Q6H PRN PRN Reason: PAIN LEVEL 6-10 Last Admin: 03/04/20 08:57 Dose: 325 mg Documented by: Al Hydroxide/Mg Hydroxide (Mylanta Oral Suspension -) 30 ml PO Q6H PRN PRN Reason: DYSPEPSIA Atorvastatin Calcium (Lipitor -) 40 mg PO HS [facility] Last Admin: 03/03/20 21:39 Dose: 40 mg Documented by: Diltiazem HCl (Cardizem Cd -) 120 mg PO DAILY [facility] Last Admin: 03/04/20 10:13 Dose: 120 mg Documented by: Diphenhydramine HCl (Benadryl -) 50 mg PO Q4H PRN PRN Reason: ITCHING OR INSOMNIA Duloxetine HCl (Cymbalta -) 20 mg PO DAILY [facility] Last Admin: 03/04/20 10:19 Dose: 20 mg Documented by: Heparin Sodium (Porcine) (Heparin -) 5,000 unit SQ TID [facility] Last Admin: 03/04/20 06:07 Dose: 5,000 unit Documented by: Ceftriaxone Sodium 2 gm/ (Dextrose) 100 mls @ 200 mls/hr IVPB DAILY [facility]; Protocol Last Admin: 03/04/20 10:14 Dose: 200 mls/hr Documented by: Vancomycin HCl (Vancomycin (Pre-Docked)) 1,000 mg in 250 mls @ 166.667 mls/hr IVPB Q12H [facility]; Protocol Last Admin: 03/04/20 02:23 Dose: 166.667 mls/hr Documented by: Metoprolol Tartrate (Lopressor -) 25 mg PO DAILY [facility] Last Admin: 03/04/20 10:14 Dose: 25 mg Documented by: Oxycodone HCl (Roxicodone -) 5 mg PO Q6H PRN PRN Reason: PAIN LEVEL 6-10 Last Admin: 03/04/20 08:58 Dose: 5 mg Documented by: Pantoprazole Sodium (Protonix -) 40 mg PO BID [facility] Last Admin: 03/04/20 10:14 Dose: 40 mg Documented by: Pregabalin (Lyrica -) 50 mg PO BID [facility] Last Admin: 03/04/20 10:13 Dose: 50 mg Documented by: Tamsulosin HCl (Flomax -) 0.4 mg PO DAILY@0830 [facility] Last Admin: 03/04/20 08:57 Dose: 0.4 mg Documented by: - Objective Vital Signs: Vital Signs Temperature 97.6 F 03/04/20 06:00 Pulse Rate 90 03/04/20 06:00 Respiratory Rate 03/04/20 06:00 Blood Pressure 148/67 03/04/20 06:00 O2 Sat by Pulse Oximetry (%) 95 03/04/20 06:00 Constitutional: Yes: Well Nourished, Calm, Mild Distress (low back pain controlled with Oxycodone) Eyes: Yes: Conjunctiva Clear, EOM Intact HENT: Yes: Atraumatic, Normocephalic Neck: Yes: Supple, Trachea Midline Cardiovascular: Yes: Regular Rate and Rhythm Respiratory: Yes: Regular, CTA Bilaterally Gastrointestinal: Yes: Normal Bowel Sounds, Soft ...Rectal Exam: Yes: Deferred Genitourinary: Yes: WNL Breast(s): Yes: WNL Musculoskeletal: Yes: Muscle Weakness Extremities: Yes: Erythema (both lower legs L>R) Edema: Yes Edema: LLE: 2+, RLE: 2+ Peripheral Pulses WNL: Yes Integumentary: Yes: Erythema (both lower legs L>R) Neurological: Yes: Alert, Oriented, Unsteady Gait, Weakness ...Motor Strength: LLE (muscle weakness), RLE (muscle weakness) Psychiatric: Yes: Alert, Oriented Labs: CBC, BMP 03/04/20 06:20 03/03/20 06:51 - ....Imaging Other: Report Reviewed (lab data reviewed) Problem List - Problems (1) Cellulitis Code(s): L03.90 - CELLULITIS, UNSPECIFIED Qualifiers: Site of cellulitis of extremity: lower extremity Laterality: left (2) Leg swelling Code(s): M79.89 - OTHER SPECIFIED SOFT TISSUE DISORDERS (3) Anemia Code(s): D64.9 - ANEMIA, UNSPECIFIED Qualifiers: Anemia type: unspecified type Qualified Code(s): D64.9 - Anemia, unspecified (4) GI bleed Code(s): K92.2 - GASTROINTESTINAL HEMORRHAGE, UNSPECIFIED Qualifiers: GI bleed type/associated pathology: melena Qualified Code(s): K92.1 - Melena (5) History of colon polyps Code(s): Z86.010 - PERSONAL HISTORY OF COLONIC POLYPS (6) History of intravascular stent placement Code(s): Z95.828 - PRESENCE OF OTHER VASCULAR IMPLANTS AND GRAFTS (7) Melena Code(s): K92.1 - MELENA (8) Obesity (BMI 30-39.9) Code(s): E66.9 - OBESITY, UNSPECIFIED (9) Peripheral vascular disease Code(s): I73.9 - PERIPHERAL VASCULAR DISEASE, UNSPECIFIED (10) Status post vascular bypass Code(s): Z95.828 - PRESENCE OF OTHER VASCULAR IMPLANTS AND GRAFTS (11) Vomiting Code(s): R11.10 - VOMITING, UNSPECIFIED Assessment/Plan Assessment/plan: acute cellulitis of both lower legs L>R, edema and erythema of both lower extremities, psoriasis, psoriatic arthritis, HTN, HLD, s/p intravascular stent placement, PVD, peripheral neuropathy, s/p 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
[2020-03-04] MEDS: ATORVASTATIN CA 40 MG TABLET (FP) PO SCH (20:59)
[2020-03-05] MEDS: VANCOMYCIN 1 GRAM (PRE-DOCKED) 1,000 MG/250 ML BAG IVPB SCH ×2 (01:23→13:00)
[2020-03-05] MEDS: HEPARIN NA (PORCINE) 5,000 UNITS/ML 1ML VIAL SQ SCH ×3 (06:41→21:15)
[2020-03-05] MEDS: oxyCODONE HCL 5 MG TABLET PO PRN (06:42)
[2020-03-05] MEDS: ACETAMINOPHEN 325 MG TABLET (FP) PO PRN (06:43)
[2020-03-05 07:24] LABS: BASO % 0.7 % (0-2.0); EOS % 5.5 % (0-4.5); HEMATOCRIT 37.3 % (35.4-49); LYMPH % 13.2 % (8-40); MCH 30.7 pg (25.7-33.7); MCHC 32.2 g/dl (32.0-35.9); MEAN CELL VOLUME 95.2 fl (80-96); MEAN PLT VOLUME 9.6 fl (7.5-11.1); MONO % 6.3 % (3.8-10.2); NEUT % 74.3 % (42.8-82.8); PLATELET COUNT 125 K/MM3 (134-434); RBC 3.92 M/mm3 (4.00-5.60); RDW 18.5 % (11.9-15.9); WHITE BLOOD COUNT 6.5 K/mm3 (4.0-10.0)
[2020-03-05 07:50] LABS: ALBUMIN 2.9 g/dl (3.4-5.0); BILIRUBIN,TOTAL 0.8 mg/dL (0.2-1); BLOOD UREA NITROGEN 9.2 mg/dL (7-18); CALCIUM 8.5 mg/dL (8.5-10.1); CREATININE 0.9 mg/dL (0.55-1.3); POTASSIUM 3.9 mmol/L (3.5-5.1); TOT PROT 5.7 g/dl (6.4-8.2)
--- NOTE | 2020-03-05 08:24 | PN ---
Progress Note, Physician Chief Complaint: Patient seen and examined at the bedside, no acute events from last night, gradually resolving cellulitis of both lower legs. 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 - Current Medication List Current Medications: Active Medications Acetaminophen (Tylenol -) 325 mg PO Q6H PRN PRN Reason: PAIN LEVEL 6-10 Last Admin: 03/05/20 06:43 Dose: 325 mg Documented by: Al Hydroxide/Mg Hydroxide (Mylanta Oral Suspension -) 30 ml PO Q6H PRN PRN Reason: DYSPEPSIA Atorvastatin Calcium (Lipitor -) 40 mg PO HS [facility] Last Admin: 03/04/20 20:59 Dose: 40 mg Documented by: Diltiazem HCl (Cardizem Cd -) 120 mg PO DAILY [facility] Last Admin: 03/04/20 10:13 Dose: 120 mg Documented by: Diphenhydramine HCl (Benadryl -) 50 mg PO Q4H PRN PRN Reason: ITCHING OR INSOMNIA Duloxetine HCl (Cymbalta -) 20 mg PO DAILY [facility] Last Admin: 03/04/20 10:19 Dose: 20 mg Documented by: Heparin Sodium (Porcine) (Heparin -) 5,000 unit SQ TID [facility] Last Admin: 03/05/20 06:41 Dose: 5,000 unit Documented by: Ceftriaxone Sodium 2 gm/ (Dextrose) 100 mls @ 200 mls/hr IVPB DAILY [facility]; Protocol Last Admin: 03/04/20 10:14 Dose: 200 mls/hr Documented by: Vancomycin HCl (Vancomycin (Pre-Docked)) 1,000 mg in 250 mls @ 166.667 mls/hr IVPB Q12H [facility]; Protocol Last Admin: 03/05/20 01:23 Dose: 166.667 mls/hr Documented by: Metoprolol Tartrate (Lopressor -) 25 mg PO DAILY [facility] Last Admin: 03/04/20 10:14 Dose: 25 mg Documented by: Oxycodone HCl (Roxicodone -) 5 mg PO Q6H PRN PRN Reason: PAIN LEVEL 6-10 Last Admin: 03/05/20 06:42 Dose: 5 mg Documented by: Pantoprazole Sodium (Protonix -) 40 mg PO BID [facility] Last Admin: 03/04/20 20:59 Dose: 40 mg Documented by: Pregabalin (Lyrica -) 50 mg PO BID [facility] Last Admin: 03/04/20 20:59 Dose: 50 mg Documented by: Tamsulosin HCl (Flomax -) 0.4 mg PO DAILY@0830 [facility] Last Admin: 03/04/20 08:57 Dose: 0.4 mg Documented by: - Objective Vital Signs: Vital Signs Temperature 98.1 F 03/05/20 06:00 Pulse Rate 76 03/05/20 06:00 Respiratory Rate 20 03/05/20 06:00 Blood Pressure 140/72 03/05/20 06:00 O2 Sat by Pulse Oximetry (%) 94 L 03/04/20 20:15 Constitutional: Yes: Well Nourished, No Distress, Calm Eyes: Yes: Conjunctiva Clear, EOM Intact HENT: Yes: Atraumatic, Normocephalic Neck: Yes: Supple, Trachea Midline Cardiovascular: Yes: Regular Rate and Rhythm Respiratory: Yes: Regular, CTA Bilaterally Gastrointestinal: Yes: Normal Bowel Sounds, Soft ...Rectal Exam: Yes: Deferred Genitourinary: Yes: WNL Breast(s): Yes: WNL Musculoskeletal: Yes: WNL Extremities: Yes: Erythema (gradually resolving of lower extremities) Edema: Yes Edema: LLE: 1+, RLE: 1+ Peripheral Pulses WNL: Yes Integumentary: Yes: Erythema (gradually resolving of lower extremities) Neurological: Yes: WNL ...Motor Strength: WNL Psychiatric: Yes: WNL Labs: CBC, BMP 03/05/20 06:18 03/05/20 06:18 - ....Imaging Other: Report Reviewed (lab data reviewed) Problem List - Problems (1) Cellulitis Code(s): L03.90 - CELLULITIS, UNSPECIFIED Qualifiers: Site of cellulitis of extremity: lower extremity Laterality: left (2) Leg swelling Code(s): M79.89 - OTHER SPECIFIED SOFT TISSUE DISORDERS (3) Anemia Code(s): D64.9 - ANEMIA, UNSPECIFIED Qualifiers: Anemia type: unspecified type Qualified Code(s): D64.9 - Anemia, unspecified (4) GI bleed Code(s): K92.2 - GASTROINTESTINAL HEMORRHAGE, UNSPECIFIED Qualifiers: GI bleed type/associated pathology: melena Qualified Code(s): K92.1 - Melena (5) History of colon polyps Code(s): Z86.010 - PERSONAL HISTORY OF COLONIC POLYPS (6) History of intravascular stent placement Code(s): Z95.828 - PRESENCE OF OTHER VASCULAR IMPLANTS AND GRAFTS (7) Melena Code(s): K92.1 - MELENA (8) Obesity (BMI 30-39.9) Code(s): E66.9 - OBESITY, UNSPECIFIED (9) Peripheral vascular disease Code(s): I73.9 - PERIPHERAL VASCULAR DISEASE, UNSPECIFIED (10) Status post vascular bypass Code(s): Z95.828 - PRESENCE OF OTHER VASCULAR IMPLANTS AND GRAFTS (11) Vomiting Code(s): R11.10 - VOMITING, UNSPECIFIED Assessment/Plan Assessment/plan: acute cellulitis of both lower legs, acute edema and erythema of both lower legs, thrombocytopenia, psoriasis, psoriatic arthritis, peripheral neuropathy, 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
[2020-03-05] MEDS ORDERED: DEXTROSE 5%-WATER 100 ML IVPB ONE (09:21)
[2020-03-05] MEDS ORDERED: PT OWN MED DRAWER 7, Y5N ONE (09:21)
[2020-03-05] MEDS: CEFTRIAXONE 2 GM in DEXTROSE 5%-WATER 100 ML IVPB SCH (09:24)
[2020-03-05] MEDS: TAMSULOSIN HCL 0.4 MG CAP PO SCH (09:24)
[2020-03-05] MEDS: DULoxetine HCL 20 MG CAPSULE.DR PO SCH (09:24)
[2020-03-05] MEDS: PREGABALIN 50 MG CAPSULE PO SCH ×2 (09:24→21:17)
[2020-03-05] MEDS: METOPROLOL TARTRATE 25 MG TABLET (FP) PO SCH (09:24)
[2020-03-05] MEDS: PANTOPRAZOLE 40 MG TABLET PO SCH ×2 (09:24→21:17)
[2020-03-05 15:28] VITALS: BMI 39.9
[2020-03-05] MEDS: ATORVASTATIN CA 40 MG TABLET (FP) PO SCH (21:17)
[2020-03-06] MEDS: VANCOMYCIN 1 GRAM (PRE-DOCKED) 1,000 MG/250 ML BAG IVPB SCH ×2 (01:41→13:18)
[2020-03-06] MEDS: HEPARIN NA (PORCINE) 5,000 UNITS/ML 1ML VIAL SQ SCH ×3 (06:04→21:57)
[2020-03-06] MEDS: oxyCODONE HCL 5 MG TABLET PO PRN (07:29)
[2020-03-06] MEDS: ACETAMINOPHEN 325 MG TABLET (FP) PO PRN ×2 (07:30→21:56)
--- NOTE | 2020-03-06 07:49 | PN ---
Progress Note, Physician Chief Complaint: Patient seen and examined at the bedside, no acute events from last night, no labored breathing, no chest pain. History of Present Illness: This 79 yr old w/m with PMH of HTN, HLD, PVD, psoriasis, psoriatic arthritis, peripheral neuropathy admitted via ER with an acute cellulitis of both lower legs. - Current Medication List Current Medications: Active Medications Acetaminophen (Tylenol -) 325 mg PO Q6H PRN PRN Reason: PAIN LEVEL 6-10 Last Admin: 03/06/20 07:30 Dose: 325 mg Documented by: Al Hydroxide/Mg Hydroxide (Mylanta Oral Suspension -) 30 ml PO Q6H PRN PRN Reason: DYSPEPSIA Atorvastatin Calcium (Lipitor -) 40 mg PO HS [facility] Last Admin: 03/05/20 21:17 Dose: 40 mg Documented by: Diltiazem HCl (Cardizem Cd -) 120 mg PO DAILY [facility] Last Admin: 03/05/20 09:24 Dose: 120 mg Documented by: Diphenhydramine HCl (Benadryl -) 50 mg PO Q4H PRN PRN Reason: ITCHING OR INSOMNIA Duloxetine HCl (Cymbalta -) 20 mg PO DAILY [facility] Last Admin: 03/05/20 09:24 Dose: 20 mg Documented by: Heparin Sodium (Porcine) (Heparin -) 5,000 unit SQ TID [facility] Last Admin: 03/06/20 06:04 Dose: 5,000 unit Documented by: Ceftriaxone Sodium 2 gm/ (Dextrose) 100 mls @ 200 mls/hr IVPB DAILY [facility]; Protocol Last Admin: 03/05/20 09:24 Dose: 200 mls/hr Documented by: Vancomycin HCl (Vancomycin (Pre-Docked)) 1,000 mg in 250 mls @ 166.667 mls/hr IVPB Q12H [facility]; Protocol Last Admin: 03/06/20 01:41 Dose: 166.667 mls/hr Documented by: Metoprolol Tartrate (Lopressor -) 25 mg PO DAILY [facility] Last Admin: 03/05/20 09:24 Dose: 25 mg Documented by: Oxycodone HCl (Roxicodone -) 5 mg PO Q6H PRN PRN Reason: PAIN LEVEL 6-10 Last Admin: 03/06/20 07:29 Dose: 5 mg Documented by: Pantoprazole Sodium (Protonix -) 40 mg PO BID [facility] Last Admin: 03/05/20 21:17 Dose: 40 mg Documented by: Pregabalin (Lyrica -) 50 mg PO BID [facility] Last Admin: 03/05/20 21:17 Dose: 50 mg Documented by: Tamsulosin HCl (Flomax -) 0.4 mg PO DAILY@0830 [facility] Last Admin: 03/05/20 09:24 Dose: 0.4 mg Documented by: - Objective Vital Signs: Vital Signs Temperature 98.7 F 03/06/20 06:00 Pulse Rate 100 H 03/06/20 06:00 Respiratory Rate 03/06/20 06:00 Blood Pressure 137/50 L 03/06/20 06:00 O2 Sat by Pulse Oximetry (%) 92 L 03/06/20 06:00 Constitutional: Yes: Well Nourished, No Distress, Calm Eyes: Yes: Conjunctiva Clear, EOM Intact HENT: Yes: Atraumatic, Normocephalic Neck: Yes: Supple, Trachea Midline Cardiovascular: Yes: Regular Rate and Rhythm Respiratory: Yes: Regular, CTA Bilaterally Gastrointestinal: Yes: Normal Bowel Sounds, Soft ...Rectal Exam: Yes: Deferred Genitourinary: Yes: WNL Breast(s): Yes: WNL Musculoskeletal: Yes: WNL Extremities: Yes: Erythema (gradually resolving of lower extremities) Edema: Yes Edema: LLE: 1+, RLE: 1+ Peripheral Pulses WNL: Yes Integumentary: Yes: Erythema (gradually resolving of lower extremities) Neurological: Yes: Loss of Sensation (lower extremities), Numbness (lower extremities) ...Motor Strength: WNL Psychiatric: Yes: WNL Labs: CBC, BMP 03/05/20 06:18 03/05/20 06:18 - ....Imaging Other: Report Reviewed (lab data reviewed) Problem List - Problems (1) Cellulitis Code(s): L03.90 - CELLULITIS, UNSPECIFIED Qualifiers: Site of cellulitis of extremity: lower extremity Laterality: left (2) Leg swelling Code(s): M79.89 - OTHER SPECIFIED SOFT TISSUE DISORDERS (3) Anemia Code(s): D64.9 - ANEMIA, UNSPECIFIED Qualifiers: Anemia type: unspecified type Qualified Code(s): D64.9 - Anemia, unspecified (4) GI bleed Code(s): K92.2 - GASTROINTESTINAL HEMORRHAGE, UNSPECIFIED Qualifiers: GI bleed type/associated pathology: melena Qualified Code(s): K92.1 - Melena (5) History of colon polyps Code(s): Z86.010 - PERSONAL HISTORY OF COLONIC POLYPS (6) History of intravascular stent placement Code(s): Z95.828 - PRESENCE OF OTHER VASCULAR IMPLANTS AND GRAFTS (7) Melena Code(s): K92.1 - MELENA (8) Obesity (BMI 30-39.9) Code(s): E66.9 - OBESITY, UNSPECIFIED (9) Peripheral vascular disease Code(s): I73.9 - PERIPHERAL VASCULAR DISEASE, UNSPECIFIED (10) Status post vascular bypass Code(s): Z95.828 - PRESENCE OF OTHER VASCULAR IMPLANTS AND GRAFTS (11) Vomiting Code(s): R11.10 - VOMITING, UNSPECIFIED Assessment/Plan Assessment/plan: acute cellulitis of the lower legs, acute edema and erythema of both lower legs, thrombocytopenia, PVD, HTN, HLD, psoriatic arthritis, psoriasis, s/p intravascular stent placement, peripheral neuropathy, 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
[2020-03-06 08:04] LABS: BASO % 0.5 % (0-2.0); EOS % 4.1 % (0-4.5); HEMATOCRIT 37.8 % (35.4-49); HEMOGLOBIN 12.4 GM/dL (11.7-16.9); LYMPH % 10.2 % (8-40); MCH 31.4 pg (25.7-33.7); MCHC 32.8 g/dl (32.0-35.9); MEAN CELL VOLUME 95.6 fl (80-96); MEAN PLT VOLUME 10.3 fl (7.5-11.1); NEUT % 79.2 % (42.8-82.8); PLATELET COUNT 123 K/MM3 (134-434); RBC 3.95 M/mm3 (4.00-5.60); RDW 17.8 % (11.9-15.9); WHITE BLOOD COUNT 7.2 K/mm3 (4.0-10.0)
[2020-03-06] MEDS ORDERED: DEXTROSE 5%-WATER 100 ML IVPB ONE (09:16)
[2020-03-06] MEDS: METOPROLOL TARTRATE 25 MG TABLET (FP) PO SCH (09:20)
[2020-03-06] MEDS: PREGABALIN 50 MG CAPSULE PO SCH ×2 (09:20→21:57)
[2020-03-06] MEDS: CEFTRIAXONE 2 GM in DEXTROSE 5%-WATER 100 ML IVPB SCH (09:20)
[2020-03-06] MEDS: TAMSULOSIN HCL 0.4 MG CAP PO SCH (09:20)
[2020-03-06] MEDS: DULoxetine HCL 20 MG CAPSULE.DR PO SCH (09:20)
[2020-03-06] MEDS: PANTOPRAZOLE 40 MG TABLET PO SCH ×2 (09:20→21:57)
--- NOTE | 2020-03-06 15:58 | PN ---
Progress Note, Physician History of Present Illness: AWAKE , LETHARGIC IN BED NO C/O LEG PAIN NO FEVER/ CHILLS BC PRELIM (-) THROMBOCYTOPENIA - Current Medication List Current Medications: Active Medications Acetaminophen (Tylenol -) 325 mg PO Q6H PRN PRN Reason: PAIN LEVEL 6-10 Last Admin: 03/06/20 07:30 Dose: 325 mg Documented by: Al Hydroxide/Mg Hydroxide (Mylanta Oral Suspension -) 30 ml PO Q6H PRN PRN Reason: DYSPEPSIA Atorvastatin Calcium (Lipitor -) 40 mg PO HS [facility] Last Admin: 03/05/20 21:17 Dose: 40 mg Documented by: Diltiazem HCl (Cardizem Cd -) 120 mg PO DAILY [facility] Last Admin: 03/06/20 09:20 Dose: 120 mg Documented by: Diphenhydramine HCl (Benadryl -) 50 mg PO Q4H PRN PRN Reason: ITCHING OR INSOMNIA Duloxetine HCl (Cymbalta -) 20 mg PO DAILY [facility] Last Admin: 03/06/20 09:20 Dose: 20 mg Documented by: Heparin Sodium (Porcine) (Heparin -) 5,000 unit SQ TID [facility] Last Admin: 03/06/20 13:25 Dose: 5,000 unit Documented by: Ceftriaxone Sodium 2 gm/ (Dextrose) 100 mls @ 200 mls/hr IVPB DAILY [facility]; Protocol Last Admin: 03/06/20 09:20 Dose: 200 mls/hr Documented by: Vancomycin HCl (Vancomycin (Pre-Docked)) 1,000 mg in 250 mls @ 166.667 mls/hr IVPB Q12H [facility]; Protocol Last Admin: 03/06/20 13:18 Dose: 166.667 mls/hr Documented by: Metoprolol Tartrate (Lopressor -) 25 mg PO DAILY [facility] Last Admin: 03/06/20 09:20 Dose: 25 mg Documented by: Oxycodone HCl (Roxicodone -) 5 mg PO Q6H PRN PRN Reason: PAIN LEVEL 6-10 Last Admin: 03/06/20 07:29 Dose: 5 mg Documented by: Pantoprazole Sodium (Protonix -) 40 mg PO BID [facility] Last Admin: 03/06/20 09:20 Dose: 40 mg Documented by: Pregabalin (Lyrica -) 50 mg PO BID [facility] Last Admin: 03/06/20 09:20 Dose: 50 mg Documented by: Tamsulosin HCl (Flomax -) 0.4 mg PO DAILY@0830 [facility] Last Admin: 03/06/20 09:20 Dose: 0.4 mg Documented by: - Objective Vital Signs: Vital Signs Temperature 97.5 F L 03/06/20 14:00 Pulse Rate 66 03/06/20 14:00 Respiratory Rate 20 03/06/20 14:00 Blood Pressure 100/48 L 03/06/20 14:00 O2 Sat by Pulse Oximetry (%) 89 L 03/06/20 14:00 Constitutional: Yes: No Distress Eyes: Yes: Conjunctiva Clear Cardiovascular: Yes: Regular Rate and Rhythm, S1, S2 Respiratory: Yes: CTA Bilaterally Gastrointestinal: Yes: Normal Bowel Sounds, Soft. No: Tenderness Extremities: Yes: Other (DECREASED ERYTHEMA/ WARMTH LE) Labs: CBC, BMP 03/06/20 06:35 03/05/20 06:18 Assessment/Plan BILATERAL LE CELLULITIS IMPROVED PSORIASIS/ PSORIATIC ARTHRITIS THROMBOCYTOPENIA COVID-19 (-) CONTINUE VANCOMYCIN/ CEFTRIAXONE SUBSTITUTE KEFLEX 500MG PO QID X 7D NEXT 24HE
[2020-03-06] MEDS: ATORVASTATIN CA 40 MG TABLET (FP) PO SCH (21:57)
[2020-03-07] MEDS: VANCOMYCIN 1 GRAM (PRE-DOCKED) 1,000 MG/250 ML BAG IVPB SCH ×2 (01:47→12:52)
[2020-03-07] MEDS: HEPARIN NA (PORCINE) 5,000 UNITS/ML 1ML VIAL SQ SCH ×3 (06:14→21:10)
--- NOTE | 2020-03-07 06:32 | DS ---
Physical Examination Vital Signs: Vital Signs Temperature 98.4 F 03/06/20 22:00 Pulse Rate 76 03/06/20 22:00 Respiratory Rate 20 03/06/20 22:00 Blood Pressure 148/78 03/06/20 22:00 O2 Sat by Pulse Oximetry (%) 92 L 03/06/20 22:00 Labs: CBC, BMP 03/06/20 06:35 03/05/20 06:18 Discharge Summary Problems reviewed: Yes Reason For Visit: CELLULITIS Current Active Problems Cellulitis (Acute) Leg swelling (Acute) Condition: Stable - Instructions Diet, Activity, Other Instructions: Continue home meds. Keflex 500mg po qid for 7 days for cellulitis of lower legs. Activity as tolerated. Follow up with Dr. Galvez within one week. Total time spent over 30 minutes. Referrals: Sylvain Vila [Primary Care Provider] - Disposition: HOME - Home Medications Comprehensive Discharge Medication List: Ambulatory Orders Atorvastatin Ca [Lipitor] 40 mg PO HS 08/21/18 Diltiazem HCl [Diltiazem 24Hr ER] 120 mg PO DAILY 08/21/18 Duloxetine HCl 20 mg PO DAILY 08/21/18 Metoprolol Tartrate 25 mg PO DAILY 08/21/18 Ranitidine [Zantac -] 150 mg PO BID 08/21/18 Tamsulosin HCl 0.4 mg PO DAILY 08/21/18 Acetaminophen [Tylenol .Regular Strength -] 650 mg PO Q6H PRN tablet 08/31/18 Albuterol 2.5/Ipratropium 0.5 [Duoneb -] 1 amp NEB RQID amp 08/31/18 Collagenase Clostridium Hist. [Santyl -] 1 applic TP DAILY tube 08/31/18 Collagenase Clostridium Hist. [Santyl -] 1 applic TP DAILY tube 08/31/18 Diphenhydramine HCl [Benadryl Capsule -] 50 mg PO Q4H PRN capsule 08/31/18 Guaifenesin Dm [Mucinex Dm -] 1 tablet PO BID tab.er.12h 08/31/18 Hydrocortisone 1% Ointment [Hytone 1% Ointment -] 1 applic TP Q6H PRN tube 08/31/18 Mag Hydrox/Al Hydrox/Simeth [Mylanta Oral Suspension -] 30 ml PO Q6HPO cup 08/31/18 Pregabalin [Lyrica -] 50 mg PO BID 7 Days #14 capsule MDD 100 08/31/18 Acetaminophen [Tylenol .Regular Strength -] 325 mg PO Q6H PRN tablet 03/07/20 Atorvastatin Ca [Lipitor] 40 mg PO HS tablet 03/07/20 Cephalexin Monohydrate [Keflex -] 500 mg PO QID #28 capsule 03/07/20 Diltiazem Cd [Cardizem Cd -] 120 mg PO DAILY cap.cd.24h 03/07/20 Diphenhydramine HCl [Benadryl Capsule -] 50 mg PO Q4H PRN capsule 03/07/20 Duloxetine HCl [Cymbalta -] 20 mg PO DAILY capsule. 03/07/20 Mag Hydrox/Al Hydrox/Simeth [Mylanta Oral Suspension -] 30 ml PO Q6H PRN cup 03/07/20 Metoprolol Tartrate [Lopressor -] 25 mg PO DAILY tablet 03/07/20 Pregabalin [Lyrica -] 50 mg PO BID capsule 03/07/20 Tamsulosin HCl [Flomax -] 0.4 mg PO DAILY@0830 cap.er.24h 03/07/20
[2020-03-07 07:25] LABS: BASO % 0.5 % (0-2.0); EOS % 6.1 % (0-4.5); HEMOGLOBIN 12.3 GM/dL (11.7-16.9); LYMPH % 12.1 % (8-40); MCH 30.4 pg (25.7-33.7); MCHC 32.3 g/dl (32.0-35.9); MEAN PLT VOLUME 9.7 fl (7.5-11.1); MONO % 7.3 % (3.8-10.2); PLATELET COUNT 140 K/MM3 (134-434); RBC 4.04 M/mm3 (4.00-5.60); RDW 18.2 % (11.9-15.9); WHITE BLOOD COUNT 6.8 K/mm3 (4.0-10.0)
[2020-03-07] MEDS ORDERED: DEXTROSE 5%-WATER 100 ML IVPB ONE (08:57)
[2020-03-07] MEDS: PANTOPRAZOLE 40 MG TABLET PO SCH ×2 (09:31→21:11)
[2020-03-07] MEDS: CEPHALEXIN MONOHYDRATE 500 MG CAPSULE (UD) PO SCH ×4 (09:31→21:11)
[2020-03-07] MEDS: TAMSULOSIN HCL 0.4 MG CAP PO SCH (09:31)
[2020-03-07] MEDS: PREGABALIN 50 MG CAPSULE PO SCH ×2 (09:31→21:10)
[2020-03-07] MEDS: METOPROLOL TARTRATE 25 MG TABLET (FP) PO SCH (09:31)
[2020-03-07] MEDS: DULoxetine HCL 20 MG CAPSULE.DR PO SCH (09:31)
[2020-03-07] MEDS: oxyCODONE HCL 5 MG TABLET PO PRN (09:32)
[2020-03-07] MEDS: ACETAMINOPHEN 325 MG TABLET (FP) PO PRN (09:33)
[2020-03-07] MEDS: CEFTRIAXONE 2 GM in DEXTROSE 5%-WATER 100 ML IVPB SCH (09:36)
--- NOTE | 2020-03-07 15:00 | PN ---
Progress Note, Physician Chief Complaint: Patient seen and examined at the bedside, no acute events from last night, gradually resolving cellulitiis of both lower legs. History of Present Illness: This 79 yr old w/m with PMH of HTN, HLD, PVD, peripehral neuropathy, psoriasis, psoriatic arthritis admitted via ER with an acute cellulitis of both lower legs. - Current Medication List Current Medications: Active Medications Acetaminophen (Tylenol -) 325 mg PO Q6H PRN PRN Reason: PAIN LEVEL 6-10 Last Admin: 03/07/20 09:33 Dose: 325 mg Documented by: Al Hydroxide/Mg Hydroxide (Mylanta Oral Suspension -) 30 ml PO Q6H PRN PRN Reason: DYSPEPSIA Atorvastatin Calcium (Lipitor -) 40 mg PO HS [facility] Last Admin: 03/06/20 21:57 Dose: 40 mg Documented by: Cephalexin HCl (Keflex -) 500 mg PO QID [facility] Last Admin: 03/07/20 13:00 Dose: 500 mg Documented by: Diltiazem HCl (Cardizem Cd -) 120 mg PO DAILY [facility] Last Admin: 03/07/20 09:32 Dose: 120 mg Documented by: Diphenhydramine HCl (Benadryl -) 50 mg PO Q4H PRN PRN Reason: ITCHING OR INSOMNIA Duloxetine HCl (Cymbalta -) 20 mg PO DAILY [facility] Last Admin: 03/07/20 09:31 Dose: 20 mg Documented by: Heparin Sodium (Porcine) (Heparin -) 5,000 unit SQ TID [facility] Last Admin: 03/07/20 13:00 Dose: 5,000 unit Documented by: Ceftriaxone Sodium 2 gm/ (Dextrose) 100 mls @ 200 mls/hr IVPB DAILY [facility]; Protocol Last Admin: 03/07/20 09:36 Dose: 200 mls/hr Documented by: Vancomycin HCl (Vancomycin (Pre-Docked)) 1,000 mg in 250 mls @ 166.667 mls/hr IVPB Q12H [facility]; Protocol Last Admin: 03/07/20 12:52 Dose: 166.667 mls/hr Documented by: Metoprolol Tartrate (Lopressor -) 25 mg PO DAILY [facility] Last Admin: 03/07/20 09:31 Dose: 25 mg Documented by: Oxycodone HCl (Roxicodone -) 5 mg PO Q6H PRN PRN Reason: PAIN LEVEL 6-10 Last Admin: 03/07/20 09:32 Dose: 5 mg Documented by: Pantoprazole Sodium (Protonix -) 40 mg PO BID [facility] Last Admin: 03/07/20 09:31 Dose: 40 mg Documented by: Pregabalin (Lyrica -) 50 mg PO BID [facility] Last Admin: 03/07/20 09:31 Dose: 50 mg Documented by: Tamsulosin HCl (Flomax -) 0.4 mg PO DAILY@0830 [facility] Last Admin: 03/07/20 09:31 Dose: 0.4 mg Documented by: - Objective Vital Signs: Vital Signs Temperature 98.6 F 03/07/20 10:00 Pulse Rate 83 03/07/20 10:00 Respiratory Rate 20 03/07/20 10:00 Blood Pressure 120/74 03/07/20 10:00 O2 Sat by Pulse Oximetry (%) 92 L 03/07/20 10:00 Constitutional: Yes: Well Nourished, No Distress, Calm Eyes: Yes: Conjunctiva Clear, EOM Intact HENT: Yes: Atraumatic, Normocephalic Neck: Yes: Supple, Trachea Midline Cardiovascular: Yes: Regular Rate and Rhythm Respiratory: Yes: Regular, CTA Bilaterally Gastrointestinal: Yes: Normal Bowel Sounds, Soft ...Rectal Exam: Yes: Deferred Genitourinary: Yes: WNL Breast(s): Yes: WNL Musculoskeletal: Yes: WNL Extremities: Yes: Erythema (marked improvement of both lower legs) Edema: No Peripheral Pulses WNL: Yes Integumentary: Yes: Erythema (markedly resolved of lower extremities) Neurological: Yes: WNL ...Motor Strength: WNL Psychiatric: Yes: WNL Labs: CBC, BMP 03/07/20 06:58 03/05/20 06:18 - ....Imaging Other: Report Reviewed (lab data reviewed) Problem List - Problems (1) Cellulitis Code(s): L03.90 - CELLULITIS, UNSPECIFIED Qualifiers: Site of cellulitis of extremity: lower extremity Laterality: left (2) Leg swelling Code(s): M79.89 - OTHER SPECIFIED SOFT TISSUE DISORDERS (3) Anemia Code(s): D64.9 - ANEMIA, UNSPECIFIED Qualifiers: Anemia type: unspecified type Qualified Code(s): D64.9 - Anemia, unspecified (4) GI bleed Code(s): K92.2 - GASTROINTESTINAL HEMORRHAGE, UNSPECIFIED Qualifiers: GI bleed type/associated pathology: melena Qualified Code(s): K92.1 - Colette piper (5) History of colon polyps Code(s): Z86.010 - PERSONAL HISTORY OF COLONIC POLYPS (6) History of intravascular stent placement Code(s): Z95.828 - PRESENCE OF OTHER VASCULAR IMPLANTS AND GRAFTS (7) Melena Code(s): K92.1 - MELENA (8) Obesity (BMI 30-39.9) Code(s): E66.9 - OBESITY, UNSPECIFIED (9) Peripheral vascular disease Code(s): I73.9 - PERIPHERAL VASCULAR DISEASE, UNSPECIFIED (10) Status post vascular bypass Code(s): Z95.828 - PRESENCE OF OTHER VASCULAR IMPLANTS AND GRAFTS (11) Vomiting Code(s): R11.10 - VOMITING, UNSPECIFIED Assessment/Plan Assessment/plan: acute cellulitis of both lower legs, HTN, HLD, PVD, psoriasis, psoriatic arthritis, perpheral neuroapthy, personal hx of intravascular stent placement; IV Ceftriaxone and Vancomycin for cellulitis of both lower legs, atorvastatin for HLD, SQ Heparin and pantoprazole for DVT/GI prophylaxis, diltiazem and metoprolol for HTN, tamsulosin for BPH, Duloxetine for depression, oxycodone for low back pain, Lyrica for neuropathic pain, oxygen 2L/min via nasal cannula, physical therapy, 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
[2020-03-07] MEDS: ATORVASTATIN CA 40 MG TABLET (FP) PO SCH (21:10)
[2020-03-08] MEDS ORDERED: PT OWN MED DRAWER 7, Y5N ONE (01:10)
[2020-03-08] MEDS: VANCOMYCIN 1 GRAM (PRE-DOCKED) 1,000 MG/250 ML BAG IVPB SCH (01:16)
[2020-03-08] MEDS: HEPARIN NA (PORCINE) 5,000 UNITS/ML 1ML VIAL SQ SCH (06:31)
--- NOTE | 2020-03-08 07:33 | DS ---
Physical Examination Vital Signs: Vital Signs Temperature 97.8 F 03/08/20 06:00 Pulse Rate 73 03/08/20 06:00 Respiratory Rate 20 03/08/20 06:00 Blood Pressure 133/65 03/08/20 06:00 O2 Sat by Pulse Oximetry (%) 95 03/08/20 06:00 Labs: CBC, BMP 03/07/20 06:58 03/05/20 06:18 Discharge Summary Problems reviewed: Yes Reason For Visit: CELLULITIS Current Active Problems Cellulitis (Acute) Leg swelling (Acute) Condition: Stable - Instructions Diet, Activity, Other Instructions: Continue home meds. Keflex 500mg po qid for 7 days for cellulitis of lower legs. Activity as tolerated. Follow up with Dr. Galvez within one week. Total time spent over 30 minutes. Referrals: Sylvain Vila [Primary Care Provider] - Disposition: HOME - Home Medications Comprehensive Discharge Medication List: Ambulatory Orders Atorvastatin Ca [Lipitor] 40 mg PO HS 08/21/18 Diltiazem HCl [Diltiazem 24Hr ER] 120 mg PO DAILY 08/21/18 Duloxetine HCl 20 mg PO DAILY 08/21/18 Metoprolol Tartrate 25 mg PO DAILY 08/21/18 Ranitidine [Zantac -] 150 mg PO BID 08/21/18 Tamsulosin HCl 0.4 mg PO DAILY 08/21/18 Acetaminophen [Tylenol .Regular Strength -] 650 mg PO Q6H PRN tablet 08/31/18 Albuterol 2.5/Ipratropium 0.5 [Duoneb -] 1 amp NEB RQID amp 08/31/18 Collagenase Clostridium Hist. [Santyl -] 1 applic TP DAILY tube 08/31/18 Collagenase Clostridium Hist. [Santyl -] 1 applic TP DAILY tube 08/31/18 Diphenhydramine HCl [Benadryl Capsule -] 50 mg PO Q4H PRN capsule 08/31/18 Guaifenesin Dm [Mucinex Dm -] 1 tablet PO BID tab.er.12h 08/31/18 Hydrocortisone 1% Ointment [Hytone 1% Ointment -] 1 applic TP Q6H PRN tube 08/31/18 Mag Hydrox/Al Hydrox/Simeth [Mylanta Oral Suspension -] 30 ml PO Q6HPO cup 08/31/18 Pregabalin [Lyrica -] 50 mg PO BID 7 Days #14 capsule MDD 100 08/31/18 Acetaminophen [Tylenol .Regular Strength -] 325 mg PO Q6H PRN tablet 03/07/20 Atorvastatin Ca [Lipitor] 40 mg PO HS tablet 03/07/20 Cephalexin Monohydrate [Keflex -] 500 mg PO QID #28 capsule 03/07/20 Diltiazem Cd [Cardizem Cd -] 120 mg PO DAILY cap.cd.24h 03/07/20 Diphenhydramine HCl [Benadryl Capsule -] 50 mg PO Q4H PRN capsule 03/07/20 Duloxetine HCl [Cymbalta -] 20 mg PO DAILY capsule. 03/07/20 Mag Hydrox/Al Hydrox/Simeth [Mylanta Oral Suspension -] 30 ml PO Q6H PRN cup 03/07/20 Metoprolol Tartrate [Lopressor -] 25 mg PO DAILY tablet 03/07/20 Pregabalin [Lyrica -] 50 mg PO BID capsule 03/07/20 Tamsulosin HCl [Flomax -] 0.4 mg PO DAILY@0830 cap.er.24h 03/07/20
[2020-03-08] MEDS ORDERED: DEXTROSE 5%-WATER 100 ML IVPB ONE (09:16)
[2020-03-08 09:26] VITALS: BP 129/57; PULSE 89; TEMP 97.6
[2020-03-08] MEDS: PREGABALIN 50 MG CAPSULE PO SCH (09:27)
[2020-03-08] MEDS: TAMSULOSIN HCL 0.4 MG CAP PO SCH (09:27)
[2020-03-08] MEDS: METOPROLOL TARTRATE 25 MG TABLET (FP) PO SCH (09:27)
[2020-03-08] MEDS: CEPHALEXIN MONOHYDRATE 500 MG CAPSULE (UD) PO SCH (09:28)
[2020-03-08] MEDS: DULoxetine HCL 20 MG CAPSULE.DR PO SCH (09:28)
[2020-03-08] MEDS: PANTOPRAZOLE 40 MG TABLET PO SCH (09:28)
[2020-03-08] MEDS: oxyCODONE HCL 5 MG TABLET PO PRN (09:28)
[2020-03-08] MEDS: CEFTRIAXONE 2 GM in DEXTROSE 5%-WATER 100 ML IVPB SCH (09:29)
== END 2020-03-08 14:17 | disposition home or self-care (01) | DRG 603 ==
LOC: JER 14:28 → JERBED 17:55 → J8W 21:05
PROVIDERS: ADMIT Internal Medicine; ATTEND Internal Medicine
DX: L03.116 Cellulitis of left lower limb (principal); Z68.41 Body mass index [BMI] 40.0-44.9, adult; L03.115 Cellulitis of right lower limb; E66.9 Obesity, unspecified; L40.50 Arthropathic psoriasis, unspecified; I73.9 Peripheral vascular disease, unspecified; D69.6 Thrombocytopenia, unspecified; I25.2 Old myocardial infarction; I10 Essential (primary) hypertension; N40.0 Benign prostatic hyperplasia without lower urinary tract symptoms; F32.9 Major depressive disorder, single episode, unspecified; M54.5 Low back pain; D64.9 Anemia, unspecified; G62.9 Polyneuropathy, unspecified; E78.5 Hyperlipidemia, unspecified; Z89.422 Acquired absence of other left toe(s)
CPT/HCPCS: 36415; 71045-TC-FY; 72100-TC-FY; 73590-TC-LT-FY; 80053; 81003; 85025; 86140; 87040; 93005; 93010; 93970-TC; 97116-GP; 97161-GP; 99285-25; G0480; J1644; U0003

== ENCOUNTER 2021-02-23 03:22 | Inpatient (IN) | payer OTHER ==
[2021-02-23 03:34] VITALS: BMI 36.9
[2021-02-23 04:59] LABS: INR 1.05 (0.83-1.09); PROTHROMBIN TIME (PATIENT) 12.9 SEC (9.7-13.0)
[2021-02-23 05:02] LABS: ACTIVATED PTT 20.3 SECONDS (25.2-36.5)
[2021-02-23 05:10] LABS: ALBUMIN 2.9 g/dl (3.4-5.0); CALCIUM 7.8 mg/dL (8.5-10.1)
[2021-02-23 05:12] LABS: MAGNESIUM 1.9 mg/dL (1.8-2.4)
[2021-02-23 05:14] LABS: PHOSPHOROUS 2.9 mg/dL (2.5-4.9)
[2021-02-23 05:15] LABS: TOT PROT 6.2 g/dl (6.4-8.2)
[2021-02-23 05:19] LABS: LACTIC ACID 3.2 mmol/L (0.4-2.0); N-TERMINAL BNP 538.6 pg/ml (5-450)
[2021-02-23] MEDS ORDERED: SODIUM CHLORIDE 0.9% 500 ML INFUS.BAG IV ONE (05:21)
[2021-02-23 05:30] LABS: BASO % 0.5 % (0-2.0); EOS % 2.9 % (0-4.5); HEMOGLOBIN 11.9 GM/dL (11.7-16.9); LYMPH % 7.4 % (8-40); MCH 31.6 pg (25.7-33.7); MCHC 33.1 g/dl (32.0-35.9); MEAN CELL VOLUME 95.4 fl (80-96); MEAN PLT VOLUME 9.2 fl (7.5-11.1); MONO % 7.5 % (3.8-10.2); NEUT % 81.7 % (42.8-82.8); PLATELET COUNT 116 10^3/uL (134-434); RBC 3.77 M/mm3 (4.00-5.60); RDW 15.2 % (11.9-15.9); VENOUS BASE EXCESS -1.7 mmol/L (-2-2); VENOUS O2 SATURATION 70.2 % (70-80); VENOUS PCO2 52.6 mmHg (38-52); VENOUS PH 7.301 (7.310-7.410); WHITE BLOOD COUNT 7.3 K/mm3 (4.0-10.0)
[2021-02-23] MEDS ORDERED: ACETAMINOPHEN 1000 MG/100 ML VIAL (NON FORMULARY) IVPB ONE (05:33)
[2021-02-23] MEDS ORDERED: ACETAMINOPHEN INJECTION 100 ML IVPB ONE (05:46)
[2021-02-23] MEDS ORDERED: CLINDAMYCIN 600MG PREMIX IVPB 600 MG/50 ML BAG IVPB ONE ×2 (05:55→06:17)
[2021-02-23] MEDS ORDERED: ALBUTEROL SO4 2.5/IPRATROPIUM 0.5 INH SOL 3 ML VIAL.NEB. NEB PRN (10:10)
[2021-02-23] MEDS ORDERED: chlordiazePOXIDE 5 MG CAPSULE PO PRN (10:46)
[2021-02-23] MEDS ORDERED: PANTOPRAZOLE 40 MG TABLET ONE (12:27)
[2021-02-23] MEDS ORDERED: MAG HYDROX/AL HYDROX/SIMETH 30 ML UNIT-DOSE CUP PO PRN (12:27)
[2021-02-23] MEDS ORDERED: CEFAZOLIN 2 GM/D5W 2 GM/50 ML ML IVPB ONE ×2 (12:28→20:12)
[2021-02-23] MEDS: PANTOPRAZOLE 40 MG TABLET PO SCH (12:53)
[2021-02-23] MEDS: CEFAZOLIN 2 GM/D5W 2 GM/50 ML ML IVPB SCH ×2 (12:53→20:33)
[2021-02-23] MEDS: D5-1/2NS+10 MEQ KCL - 10 MEQ/1,000 ML INFUS.BAG IV SCH (16:49)
[2021-02-23] MEDS ORDERED: ATORVASTATIN CA 40 MG TABLET (FP) ONE (20:43)
[2021-02-23] MEDS ORDERED: PREGABALIN 50 MG CAPSULE ONE (20:43)
[2021-02-23] MEDS ORDERED: ACETAMINOPHEN 325 MG TABLET (FP) ONE (20:43)
[2021-02-23] MEDS: ACETAMINOPHEN 325 MG TABLET (FP) PO PRN (20:47)
[2021-02-23] MEDS: ATORVASTATIN CA 40 MG TABLET (FP) PO SCH (21:07)
[2021-02-23] MEDS: PREGABALIN 50 MG CAPSULE PO SCH (21:07)
[2021-02-24] MEDS: CEFAZOLIN 2 GM/D5W 2 GM/50 ML ML IVPB SCH ×3 (01:24→17:12)
[2021-02-24 07:56] LABS: BASO % 0.4 % (0-2.0); EOS % 4.1 % (0-4.5); HEMATOCRIT 33.9 % (35.4-49); HEMOGLOBIN 11.1 GM/dL (11.7-16.9); LYMPH % 8.7 % (8-40); MCH 31.1 pg (25.7-33.7); MCHC 32.9 g/dl (32.0-35.9); MEAN CELL VOLUME 94.7 fl (80-96); MEAN PLT VOLUME 9.5 fl (7.5-11.1); MONO % 7.9 % (3.8-10.2); NEUT % 78.9 % (42.8-82.8); PLATELET COUNT 107 10^3/uL (134-434); RBC 3.57 M/mm3 (4.00-5.60); WHITE BLOOD COUNT 6.3 K/mm3 (4.0-10.0)
[2021-02-24 08:22] LABS: ALBUMIN 2.8 g/dl (3.4-5.0); BLOOD UREA NITROGEN 5.9 mg/dL (7-18); CALCIUM 8.1 mg/dL (8.5-10.1)
[2021-02-24 08:23] LABS: BILIRUBIN,TOTAL 1.2 mg/dL (0.2-1); TOT PROT 5.8 g/dl (6.4-8.2)
[2021-02-24 08:25] LABS: CREATININE 0.7 mg/dL (0.55-1.3)
[2021-02-24] MEDS: TAMSULOSIN HCL 0.4 MG CAP PO SCH (09:49)
[2021-02-24] MEDS: METOPROLOL TARTRATE 25 MG TABLET (FP) PO SCH (09:49)
[2021-02-24] MEDS: PREGABALIN 50 MG CAPSULE PO SCH ×2 (09:49→21:58)
[2021-02-24] MEDS: PANTOPRAZOLE 40 MG TABLET PO SCH (09:49)
[2021-02-24] MEDS: DULoxetine HCL 20 MG CAPSULE.DR PO SCH (09:49)
[2021-02-24 11:11] LABS: EPI CELLS 5 /uL (0-25.1); HYALINE CASTS 0 /uL (0-3.1); PH,URINE 6.5 (5.0-8.0); URINE APPEARANCE CLEAR; URINE BACTERIA 1796 /uL (0-1359); URINE BILIRUBIN NEGATIVE (NEGATIVE); URINE COLOR YELLOW; URINE GLUCOSE (UA) NEGATIVE (NEGATIVE); URINE KETONE TRACE (NEGATIVE); URINE LEUK ESTERASE 1+ (NEGATIVE); URINE NITRITE NEGATIVE (NEGATIVE); URINE PROTEIN NEGATIVE (NEGATIVE); URINE RBC 2 /uL (0-23.9); URINE WBC 28 /uL (0-25.8)
[2021-02-24] MEDS: D5-1/2NS+10 MEQ KCL - 10 MEQ/1,000 ML INFUS.BAG IV SCH ×2 (15:04→16:22)
[2021-02-24] MEDS: ACETAMINOPHEN 325 MG TABLET (FP) PO PRN (16:48)
[2021-02-24] MEDS: ATORVASTATIN CA 40 MG TABLET (FP) PO SCH (21:58)
[2021-02-25] MEDS: CEFAZOLIN 2 GM/D5W 2 GM/50 ML ML IVPB SCH ×3 (02:13→18:31)
[2021-02-25 07:44] LABS: BASO % 0.6 % (0-2.0); EOS % 6.1 % (0-4.5); HEMATOCRIT 34.3 % (35.4-49); HEMOGLOBIN 11.3 GM/dL (11.7-16.9); MCH 31.5 pg (25.7-33.7); MCHC 32.9 g/dl (32.0-35.9); MEAN CELL VOLUME 95.8 fl (80-96); MEAN PLT VOLUME 9.6 fl (7.5-11.1); MONO % 7.7 % (3.8-10.2); NEUT % 75.6 % (42.8-82.8); PLATELET COUNT 112 10^3/uL (134-434); RBC 3.58 M/mm3 (4.00-5.60); RDW 15.3 % (11.9-15.9); WHITE BLOOD COUNT 6.1 K/mm3 (4.0-10.0)
[2021-02-25 07:48] LABS: BLOOD UREA NITROGEN 5.3 mg/dL (7-18)
[2021-02-25 07:52] LABS: CREATININE 0.8 mg/dL (0.55-1.3)
[2021-02-25] MEDS: TAMSULOSIN HCL 0.4 MG CAP PO SCH (11:06)
[2021-02-25] MEDS: PREGABALIN 50 MG CAPSULE PO SCH ×2 (11:07→21:09)
[2021-02-25] MEDS: DULoxetine HCL 20 MG CAPSULE.DR PO SCH (11:07)
[2021-02-25] MEDS: METOPROLOL TARTRATE 25 MG TABLET (FP) PO SCH (11:07)
[2021-02-25] MEDS: PANTOPRAZOLE 40 MG TABLET PO SCH (11:07)
[2021-02-25] MEDS: ACETAMINOPHEN 325 MG TABLET (FP) PO PRN ×2 (11:15→21:09)
[2021-02-25] MEDS: D5-1/2NS+10 MEQ KCL - 10 MEQ/1,000 ML INFUS.BAG IV SCH ×2 (14:24→21:09)
[2021-02-25] MEDS: ATORVASTATIN CA 40 MG TABLET (FP) PO SCH (21:09)
[2021-02-26] MEDS: CEFAZOLIN 2 GM/D5W 2 GM/50 ML ML IVPB SCH ×3 (01:59→17:14)
[2021-02-26] MEDS: PANTOPRAZOLE 40 MG TABLET PO SCH (10:16)
[2021-02-26] MEDS: ACETAMINOPHEN 325 MG TABLET (FP) PO PRN ×2 (10:16→17:14)
[2021-02-26] MEDS: DULoxetine HCL 20 MG CAPSULE.DR PO SCH (10:16)
[2021-02-26] MEDS: TAMSULOSIN HCL 0.4 MG CAP PO SCH (10:17)
[2021-02-26] MEDS: ENOXAPARIN NA (PORCINE) 40 MG/0.4 ML DISP.SYRIN SQ SCH (10:17)
[2021-02-26] MEDS: METOPROLOL TARTRATE 25 MG TABLET (FP) PO SCH (10:17)
[2021-02-26] MEDS: PREGABALIN 50 MG CAPSULE PO SCH ×2 (10:17→21:38)
[2021-02-26 10:50] LABS: BASO % 0.4 % (0-2.0); EOS % 1.9 % (0-4.5); HEMATOCRIT 35.7 % (35.4-49); HEMOGLOBIN 11.8 GM/dL (11.7-16.9); LYMPH % 4.5 % (8-40); MCH 31.6 pg (25.7-33.7); MCHC 32.9 g/dl (32.0-35.9); MEAN PLT VOLUME 8.7 fl (7.5-11.1); MONO % 6.7 % (3.8-10.2); NEUT % 86.5 % (42.8-82.8); PLATELET COUNT 111 10^3/uL (134-434); RBC 3.72 M/mm3 (4.00-5.60); RDW 15.3 % (11.9-15.9); WHITE BLOOD COUNT 9.8 K/mm3 (4.0-10.0)
[2021-02-26 11:19] LABS: CALCIUM 8.1 mg/dL (8.5-10.1)
[2021-02-26 11:20] LABS: BLOOD UREA NITROGEN 6.4 mg/dL (7-18)
[2021-02-26 11:23] LABS: CREATININE 0.8 mg/dL (0.55-1.3)
[2021-02-26] MEDS: D5-1/2NS+10 MEQ KCL - 10 MEQ/1,000 ML INFUS.BAG IV SCH (19:31)
[2021-02-26] MEDS: ATORVASTATIN CA 40 MG TABLET (FP) PO SCH (21:38)
[2021-02-27] MEDS: CEFAZOLIN 2 GM/D5W 2 GM/50 ML ML IVPB SCH ×3 (01:08→17:15)
[2021-02-27] MEDS: ACETAMINOPHEN 325 MG TABLET (FP) PO PRN (06:56)
[2021-02-27 08:17] LABS: HEMATOCRIT 35.4 % (35.4-49); HEMOGLOBIN 11.7 GM/dL (11.7-16.9); MCH 31.2 pg (25.7-33.7); MCHC 33.1 g/dl (32.0-35.9); MEAN CELL VOLUME 94.3 fl (80-96); MEAN PLT VOLUME 9.7 fl (7.5-11.1); PLATELET COUNT 103 10^3/uL (134-434); RBC 3.75 M/mm3 (4.00-5.60); RDW 15.2 % (11.9-15.9); WHITE BLOOD COUNT 15.7 K/mm3 (4.0-10.0)
[2021-02-27 08:36] LABS: CALCIUM 8.1 mg/dL (8.5-10.1)
[2021-02-27 08:37] LABS: BLOOD UREA NITROGEN 9.7 mg/dL (7-18)
[2021-02-27 08:40] LABS: CREATININE 0.8 mg/dL (0.55-1.3)
[2021-02-27] MEDS: TAMSULOSIN HCL 0.4 MG CAP PO SCH (09:18)
[2021-02-27] MEDS: DULoxetine HCL 20 MG CAPSULE.DR PO SCH (09:19)
[2021-02-27] MEDS: ENOXAPARIN NA (PORCINE) 40 MG/0.4 ML DISP.SYRIN SQ SCH (09:19)
[2021-02-27] MEDS: PANTOPRAZOLE 40 MG TABLET PO SCH (09:19)
[2021-02-27] MEDS: PREGABALIN 50 MG CAPSULE PO SCH ×2 (09:22→21:46)
[2021-02-27] MEDS: RAMIPRIL 2.5 MG CAPSULE PO SCH (09:22)
[2021-02-27] MEDS: METOPROLOL TARTRATE 25 MG TABLET (FP) PO SCH ×2 (09:25→21:46)
[2021-02-27 09:39] LABS: ANISOCYTOSIS 0; MACROCYTOSIS 0; PLATELET ESTIMATE DECREASED
[2021-02-27] MEDS ORDERED: RAMIPRIL 5 MG CAPSULE PO SCH (10:00)
[2021-02-27] MEDS: ATORVASTATIN CA 40 MG TABLET (FP) PO SCH (21:46)
[2021-02-28] MEDS: CEFAZOLIN 2 GM/D5W 2 GM/50 ML ML IVPB SCH ×3 (01:16→18:24)
[2021-02-28 07:16] LABS: BASO % 0.4 % (0-2.0); EOS % 1.4 % (0-4.5); HEMOGLOBIN 11.5 GM/dL (11.7-16.9); LYMPH % 4.7 % (8-40); MCH 31.4 pg (25.7-33.7); MCHC 32.8 g/dl (32.0-35.9); MEAN CELL VOLUME 95.6 fl (80-96); MEAN PLT VOLUME 9.7 fl (7.5-11.1); MONO % 6.7 % (3.8-10.2); NEUT % 86.8 % (42.8-82.8); PLATELET COUNT 106 10^3/uL (134-434); RBC 3.66 M/mm3 (4.00-5.60); RDW 15.1 % (11.9-15.9)
[2021-02-28 07:17] LABS: BLOOD UREA NITROGEN 9.8 mg/dL (7-18); CALCIUM 7.9 mg/dL (8.5-10.1)
[2021-02-28 07:21] LABS: CREATININE 0.7 mg/dL (0.55-1.3)
[2021-02-28] MEDS: DULoxetine HCL 20 MG CAPSULE.DR PO SCH (09:55)
[2021-02-28] MEDS: TAMSULOSIN HCL 0.4 MG CAP PO SCH (09:56)
[2021-02-28] MEDS: RAMIPRIL 2.5 MG CAPSULE PO SCH (09:56)
[2021-02-28] MEDS: METOPROLOL TARTRATE 25 MG TABLET (FP) PO SCH (09:56)
[2021-02-28] MEDS: PREGABALIN 50 MG CAPSULE PO SCH ×2 (09:56→22:18)
[2021-02-28] MEDS: PANTOPRAZOLE 40 MG TABLET PO SCH (09:56)
[2021-02-28] MEDS: ENOXAPARIN NA (PORCINE) 40 MG/0.4 ML DISP.SYRIN SQ SCH (09:56)
[2021-02-28] MEDS: ACETAMINOPHEN 325 MG TABLET (FP) PO PRN (09:58)
[2021-02-28] MEDS: LIDOCAINE 5% TOPICAL PATCH TP SCH (12:47)
[2021-02-28] MEDS: ASPIRIN COATED 81 MG TABLET.EC PO SCH (18:10)
[2021-02-28] MEDS: METOPROLOL TARTRATE 50 MG TABLET (FP) PO SCH (22:18)
[2021-02-28] MEDS: ATORVASTATIN CA 40 MG TABLET (FP) PO SCH (22:18)
[2021-02-28] MEDS: LIDOCAINE PATCH REMOVAL MC SCH (22:21)
[2021-03-01] MEDS: ACETAMINOPHEN 325 MG TABLET (FP) PO PRN (00:56)
[2021-03-01] MEDS: CEFAZOLIN 2 GM/D5W 2 GM/50 ML ML IVPB SCH ×3 (02:08→17:53)
[2021-03-01 07:33] LABS: BASO % 0.7 % (0-2.0); EOS % 3.8 % (0-4.5); HEMATOCRIT 36.5 % (35.4-49); HEMOGLOBIN 12.1 GM/dL (11.7-16.9); LYMPH % 6.8 % (8-40); MCH 31.6 pg (25.7-33.7); MCHC 33.3 g/dl (32.0-35.9); MEAN CELL VOLUME 94.8 fl (80-96); MEAN PLT VOLUME 9.5 fl (7.5-11.1); MONO % 7.2 % (3.8-10.2); NEUT % 81.5 % (42.8-82.8); PLATELET COUNT 108 10^3/uL (134-434); RBC 3.85 M/mm3 (4.00-5.60); RDW 15.3 % (11.9-15.9); WHITE BLOOD COUNT 7.7 K/mm3 (4.0-10.0)
[2021-03-01] MEDS: METOPROLOL TARTRATE 50 MG TABLET (FP) PO SCH ×2 (09:42→22:03)
[2021-03-01] MEDS: DULoxetine HCL 20 MG CAPSULE.DR PO SCH (09:42)
[2021-03-01] MEDS: ASPIRIN COATED 81 MG TABLET.EC PO SCH (09:42)
[2021-03-01] MEDS: TAMSULOSIN HCL 0.4 MG CAP PO SCH (09:42)
[2021-03-01] MEDS: RAMIPRIL 5 MG CAPSULE PO SCH (09:42)
[2021-03-01] MEDS: PANTOPRAZOLE 40 MG TABLET PO SCH (09:42)
[2021-03-01] MEDS: ENOXAPARIN NA (PORCINE) 40 MG/0.4 ML DISP.SYRIN SQ SCH (09:43)
[2021-03-01] MEDS: LIDOCAINE 5% TOPICAL PATCH TP SCH (09:47)
[2021-03-01] MEDS: GABAPENTIN 100 MG CAPSULE PO SCH ×2 (14:10→22:03)
[2021-03-01] MEDS: LIDOCAINE PATCH REMOVAL MC SCH (22:03)
[2021-03-01] MEDS: ATORVASTATIN CA 40 MG TABLET (FP) PO SCH (22:03)
[2021-03-02] MEDS: CEFAZOLIN 2 GM/D5W 2 GM/50 ML ML IVPB SCH ×2 (03:28→10:05)
[2021-03-02] MEDS: GABAPENTIN 100 MG CAPSULE PO SCH ×3 (05:51→22:12)
[2021-03-02 07:30] LABS: BASO % 0.7 % (0-2.0); EOS % 3.7 % (0-4.5); HEMATOCRIT 34.9 % (35.4-49); HEMOGLOBIN 11.5 GM/dL (11.7-16.9); LYMPH % 8.3 % (8-40); MCH 31.3 pg (25.7-33.7); MEAN PLT VOLUME 9.9 fl (7.5-11.1); NEUT % 80.3 % (42.8-82.8); PLATELET COUNT 126 10^3/uL (134-434); RBC 3.67 M/mm3 (4.00-5.60); RDW 15.2 % (11.9-15.9); WHITE BLOOD COUNT 7.1 K/mm3 (4.0-10.0)
[2021-03-02] MEDS: ASPIRIN COATED 81 MG TABLET.EC PO SCH (10:05)
[2021-03-02] MEDS: PANTOPRAZOLE 40 MG TABLET PO SCH (10:05)
[2021-03-02] MEDS: RAMIPRIL 5 MG CAPSULE PO SCH (10:05)
[2021-03-02] MEDS: METOPROLOL TARTRATE 50 MG TABLET (FP) PO SCH ×2 (10:05→22:12)
[2021-03-02] MEDS: TAMSULOSIN HCL 0.4 MG CAP PO SCH (10:05)
[2021-03-02] MEDS: ENOXAPARIN NA (PORCINE) 40 MG/0.4 ML DISP.SYRIN SQ SCH (10:05)
[2021-03-02] MEDS: DULoxetine HCL 20 MG CAPSULE.DR PO SCH (10:06)
[2021-03-02] MEDS: LIDOCAINE 5% TOPICAL PATCH TP SCH (11:46)
[2021-03-02] MEDS: ACETAMINOPHEN 325 MG TABLET (FP) PO PRN (11:47)
[2021-03-02] MEDS: LIDOCAINE PATCH REMOVAL MC SCH (22:11)
[2021-03-02] MEDS: ATORVASTATIN CA 40 MG TABLET (FP) PO SCH (22:12)
[2021-03-03] MEDS: GABAPENTIN 100 MG CAPSULE PO SCH ×3 (06:49→21:59)
[2021-03-03 07:45] LABS: BASO % 0.5 % (0-2.0); EOS % 2.5 % (0-4.5); HEMATOCRIT 35.9 % (35.4-49); HEMOGLOBIN 11.8 GM/dL (11.7-16.9); LYMPH % 7.1 % (8-40); MCH 31.4 pg (25.7-33.7); MCHC 32.9 g/dl (32.0-35.9); MEAN CELL VOLUME 95.4 fl (80-96); MONO % 7.6 % (3.8-10.2); NEUT % 82.3 % (42.8-82.8); PLATELET COUNT 131 10^3/uL (134-434); RBC 3.76 M/mm3 (4.00-5.60); RDW 14.9 % (11.9-15.9); WHITE BLOOD COUNT 6.8 K/mm3 (4.0-10.0)
[2021-03-03] MEDS: TAMSULOSIN HCL 0.4 MG CAP PO SCH (10:38)
[2021-03-03] MEDS: MULTIVITAMINS THER W-MINERALS COMBO TABLET (FP) PO SCH (10:38)
[2021-03-03] MEDS: RAMIPRIL 5 MG CAPSULE PO SCH (10:38)
[2021-03-03] MEDS: LIDOCAINE 5% TOPICAL PATCH TP SCH (10:38)
[2021-03-03] MEDS: DULoxetine HCL 20 MG CAPSULE.DR PO SCH (10:38)
[2021-03-03] MEDS: ZINC SULFATE 220 MG CAPSULE (FP) PO SCH (10:38)
[2021-03-03] MEDS: PANTOPRAZOLE 40 MG TABLET PO SCH (10:38)
[2021-03-03] MEDS: ASCORBIC ACID 500 MG TABLET (FP) PO SCH ×2 (10:38→22:00)
[2021-03-03] MEDS: ENOXAPARIN NA (PORCINE) 40 MG/0.4 ML DISP.SYRIN SQ SCH (10:38)
[2021-03-03] MEDS: ASPIRIN COATED 81 MG TABLET.EC PO SCH (10:39)
[2021-03-03] MEDS: ATORVASTATIN CA 40 MG TABLET (FP) PO SCH (22:00)
[2021-03-03] MEDS: LIDOCAINE PATCH REMOVAL MC SCH (22:20)
[2021-03-04] MEDS: GABAPENTIN 100 MG CAPSULE PO SCH ×3 (05:56→21:39)
[2021-03-04 08:13] LABS: BASO % 0.9 % (0-2.0); EOS % 4.3 % (0-4.5); HEMATOCRIT 34.3 % (35.4-49); HEMOGLOBIN 11.2 GM/dL (11.7-16.9); LYMPH % 9.7 % (8-40); MCH 31.2 pg (25.7-33.7); MCHC 32.7 g/dl (32.0-35.9); MEAN CELL VOLUME 95.5 fl (80-96); MEAN PLT VOLUME 10.2 fl (7.5-11.1); MONO % 7.6 % (3.8-10.2); NEUT % 77.5 % (42.8-82.8); PLATELET COUNT 142 10^3/uL (134-434); RDW 15.1 % (11.9-15.9); WHITE BLOOD COUNT 6.4 K/mm3 (4.0-10.0)
[2021-03-04] MEDS: TAMSULOSIN HCL 0.4 MG CAP PO SCH (08:30)
[2021-03-04] MEDS: AMINO ACIDS/PROTEIN HYDROLYS 30 ML LIQUID.PKT PO SCH ×2 (08:30→16:47)
[2021-03-04] MEDS: DULoxetine HCL 20 MG CAPSULE.DR PO SCH (09:37)
[2021-03-04] MEDS: ASPIRIN COATED 81 MG TABLET.EC PO SCH (09:37)
[2021-03-04] MEDS: RAMIPRIL 5 MG CAPSULE PO SCH (09:37)
[2021-03-04] MEDS: ZINC SULFATE 220 MG CAPSULE (FP) PO SCH (09:38)
[2021-03-04] MEDS: MULTIVITAMINS THER W-MINERALS COMBO TABLET (FP) PO SCH (09:38)
[2021-03-04] MEDS: ENOXAPARIN NA (PORCINE) 40 MG/0.4 ML DISP.SYRIN SQ SCH (09:38)
[2021-03-04] MEDS: PANTOPRAZOLE 40 MG TABLET PO SCH (09:38)
[2021-03-04] MEDS: ASCORBIC ACID 500 MG TABLET (FP) PO SCH ×2 (09:38→21:39)
[2021-03-04] MEDS: LIDOCAINE 5% TOPICAL PATCH TP SCH (09:38)
[2021-03-04] MEDS: LIDOCAINE PATCH REMOVAL MC SCH (21:38)
[2021-03-04] MEDS: ATORVASTATIN CA 40 MG TABLET (FP) PO SCH (21:40)
[2021-03-05] MEDS: GABAPENTIN 100 MG CAPSULE PO SCH ×2 (05:44→14:30)
[2021-03-05] MEDS: AMINO ACIDS/PROTEIN HYDROLYS 30 ML LIQUID.PKT PO SCH (08:26)
[2021-03-05] MEDS: TAMSULOSIN HCL 0.4 MG CAP PO SCH (08:30)
[2021-03-05] MEDS: LIDOCAINE 5% TOPICAL PATCH TP SCH (10:26)
[2021-03-05] MEDS: MULTIVITAMINS THER W-MINERALS COMBO TABLET (FP) PO SCH (11:37)
[2021-03-05] MEDS: ZINC SULFATE 220 MG CAPSULE (FP) PO SCH (11:38)
[2021-03-05] MEDS: DULoxetine HCL 20 MG CAPSULE.DR PO SCH (11:38)
[2021-03-05] MEDS: PANTOPRAZOLE 40 MG TABLET PO SCH (11:38)
[2021-03-05] MEDS: ASCORBIC ACID 500 MG TABLET (FP) PO SCH (11:39)
[2021-03-05] MEDS: ASPIRIN COATED 81 MG TABLET.EC PO SCH (11:39)
[2021-03-05] MEDS: RAMIPRIL 5 MG CAPSULE PO SCH (11:39)
[2021-03-05] MEDS: ENOXAPARIN NA (PORCINE) 40 MG/0.4 ML DISP.SYRIN SQ SCH (12:27)
[2021-03-05 15:36] VITALS: BP 133/68; PULSE 65; TEMP 98.4
== END 2021-03-05 21:04 | DRG 872 ==
LOC: JER 03:22 → JERBED 09:28 → J4W 23:41
PROVIDERS: ADMIT Internal Medicine; ATTEND Internal Medicine
DX: A41.9 Sepsis, unspecified organism (principal); S06.0X9A Concussion with loss of consciousness of unspecified duration, initial encounter; L03.116 Cellulitis of left lower limb; L03.115 Cellulitis of right lower limb; E87.2 Acidosis; L89.151 Pressure ulcer of sacral region, stage 1; F17.210 Nicotine dependence, cigarettes, uncomplicated; I10 Essential (primary) hypertension; E78.5 Hyperlipidemia, unspecified; N40.1 Benign prostatic hyperplasia with lower urinary tract symptoms; L40.50 Arthropathic psoriasis, unspecified; M79.7 Fibromyalgia; F32.9 Major depressive disorder, single episode, unspecified; F10.20 Alcohol dependence, uncomplicated; G62.9 Polyneuropathy, unspecified; I73.9 Peripheral vascular disease, unspecified; D69.6 Thrombocytopenia, unspecified; E66.9 Obesity, unspecified; Z68.36 Body mass index [BMI] 36.0-36.9, adult; W19.XXXA Unspecified fall, initial encounter; Y93.9 Activity, unspecified; Y92.89 Other specified places as the place of occurrence of the external cause; Y99.9 Unspecified external cause status; D72.829 Elevated white blood cell count, unspecified; I35.0 Nonrheumatic aortic (valve) stenosis
CPT/HCPCS: 36415; 70450-TC; 71045-TC-FY; 71275-TC; 72125-TC; 80048; 80053; 81003; 82550; 82803; 83605; 83735; 83880; 84100; 84484; 85025; 85379; 85610; 85730; 86850; 86900; 86901; 87040; 87086; 87186; 93005; 93010; 93306-TC; 97116-GP; 97162-GP; 99285-25; C9803; J0131; U0003; U0005

== ENCOUNTER 2022-06-06 15:10 | Inpatient (IN) | payer OTHER ==
[2022-06-06] MEDS ORDERED: PIPERACILLIN/TAZOB 4.5 GM 4.5 GM in DEXTROSE 5%-WATER 100 ML IVPB ONE (17:22)
[2022-06-06] MEDS ORDERED: VANCOMYCIN 1 GM in D5W (PRE-DOCKED) 1,000 MG/250 ML IVPB ONE (17:22)
[2022-06-06 18:04] LABS: BASO % 0.9 % (0-2.0); EOS % 1.5 % (0-4.5); HEMATOCRIT 37.9 % (35.4-49); HEMOGLOBIN 11.8 GM/dL (11.7-16.9); LYMPH % 8.1 % (8-40); MCH 27.9 pg (25.7-33.7); MCHC 31.2 g/dl (32.0-35.9); MEAN CELL VOLUME 89.4 fl (80-96); MEAN PLT VOLUME 9.3 fl (7.5-11.1); MONO % 6.2 % (3.8-10.2); NEUT % 83.3 % (42.8-82.8); PLATELET COUNT 152 10^3/uL (134-434); RBC 4.24 M/mm3 (4.00-5.60); RDW 16.5 % (11.9-15.9); WHITE BLOOD COUNT 10.5 K/mm3 (4.0-10.0)
[2022-06-06 18:10] LABS: VENOUS BASE EXCESS 0.7 mmol/L (-2-2); VENOUS O2 SATURATION 77.6 % (70-80); VENOUS PH 7.244 (7.310-7.410)
[2022-06-06 18:13] LABS: INR 1.18 (0.83-1.09); PROTHROMBIN TIME (PATIENT) 13.6 SEC (9.7-13.0)
[2022-06-06 18:16] LABS: ACTIVATED PTT 34.3 SECONDS (25.2-36.5); VENOUS PCO2 70.1 mmHg (38-52)
[2022-06-06 18:27] LABS: BLOOD UREA NITROGEN 26.6 mg/dL (7-18)
[2022-06-06 18:30] LABS: CREATININE 1.7 mg/dL (0.55-1.3)
[2022-06-06 18:31] LABS: TOT PROT 6.7 g/dl (6.4-8.2)
[2022-06-06 18:32] LABS: BILIRUBIN,TOTAL 1.1 mg/dL (0.2-1)
[2022-06-06 18:35] LABS: N-TERMINAL BNP 4666.7 pg/ml (5-450)
[2022-06-06 19:01] LABS: ARTERIAL BLOOD GAS BASE EXCESS -2.2 mmol/L (-2-2); ARTERIAL BLOOD GAS PO2 64.5 mmHg (80-100); ARTERIAL BLOOD GAS pH 7.203 (7.350-7.450)
[2022-06-06 19:03] LABS: ALLENS TEST POSITIVE
[2022-06-06] MEDS ORDERED: D5-1/2NS+10 MEQ KCL - 10 MEQ/1,000 ML INFUS.BAG IV SCH (19:15)
[2022-06-06] MEDS ORDERED: PIPERACILLIN/TAZOB 4.5 GM 4.5 GM/100 ML BAG IVPB ONE (19:43)
[2022-06-06] MEDS ORDERED: PANTOPRAZOLE SODIUM 40 MG VIAL ONE (19:43)
[2022-06-06] MEDS: GABAPENTIN 100 MG CAPSULE PO SCH ×2 (19:50→22:11)
[2022-06-06] MEDS: PANTOPRAZOLE SODIUM 40 MG VIAL IVPUSH SCH (20:17)
[2022-06-06] MEDS ORDERED: FUROSEMIDE 40 MG/4 ML INJECTABLE VIAL IVPUSH ONE (21:02)
[2022-06-06] MEDS ORDERED: HEPARIN NA (PORCINE) 5,000 UNITS/ML 1ML VIAL IVPUSH ONE (21:08)
[2022-06-06] MEDS ORDERED: ATORVASTATIN CA 40 MG TABLET (FP) PO SCH (22:00)
[2022-06-06] MEDS ORDERED: MIRTAZAPINE 15 MG TABLET (FP) PO PRN (22:00)
[2022-06-06] MEDS: HEPARIN NA (PORCINE) 5,000 UNITS/ML 1ML VIAL SQ SCH (22:11)
[2022-06-06] MEDS ORDERED: FUROSEMIDE 40 MG/4 ML INJECTABLE VIAL ONE (22:14)
[2022-06-06] MEDS ORDERED: HEPARIN NA (PORCINE) 5,000 UNITS/ML 1ML VIAL ONE (22:14)
[2022-06-06 22:52] LABS: EPI CELLS 18 /uL (0-25.1); HYALINE CASTS 8 /uL (0-3.1); URINE APPEARANCE CLOUDY; URINE BACTERIA 10 /uL (0-1359); URINE BILIRUBIN 1+ (NEGATIVE); URINE COLOR DK YELLOW; URINE GLUCOSE (UA) NEGATIVE (NEGATIVE); URINE KETONE TRACE (NEGATIVE); URINE LEUK ESTERASE TRACE (NEGATIVE); URINE NITRITE NEGATIVE (NEGATIVE); URINE PROTEIN 3+ (NEGATIVE); URINE WBC 154 /uL (0-25.8)
[2022-06-06] MEDS ORDERED: VANCOMYCIN/WATER FOR INJ (PEG) 1,000 MG/200 ML BAG IVPB ONE (23:01)
[2022-06-07 01:04] LABS: URINE RBC 149.2 /uL (0-23.9)
[2022-06-07] MEDS: GABAPENTIN 100 MG CAPSULE PO SCH (06:12)
[2022-06-07] MEDS: HEPARIN NA (PORCINE) 5,000 UNITS/ML 1ML VIAL SQ SCH ×3 (06:12→21:30)
[2022-06-07] MEDS ORDERED: D5-1/2NS+10 MEQ KCL - 10 MEQ/1,000 ML INFUS.BAG IV SCH ×2 (08:47→10:19)
[2022-06-07] MEDS: PANTOPRAZOLE SODIUM 40 MG VIAL IVPUSH SCH (09:51)
[2022-06-07] MEDS ORDERED: PANTOPRAZOLE SODIUM 40 MG VIAL ONE (09:52)
[2022-06-07] MEDS ORDERED: MULTIVITAMINS THER W-MINERALS COMBO TABLET (FP) PO SCH (10:00)
[2022-06-07] MEDS ORDERED: ASCORBIC ACID 500 MG TABLET (FP) PO SCH (10:00)
[2022-06-07] MEDS ORDERED: DULoxetine HCL 30 MG CAPSULE.DR PO SCH (10:00)
[2022-06-07] MEDS ORDERED: PIPERACILLIN/TAZOB 3.375 GM 3.375 GM in DEXTROSE 5%-WATER - 50 ML IVPB SCH (13:15)
[2022-06-07] MEDS ORDERED: methylPREDNISolone NA SUCC 125 MG/2 ML VIAL IVPUSH ONE (13:15)
[2022-06-07 13:28] LABS: BASO % 0.6 % (0-2.0); EOS % 2.3 % (0-4.5); HEMATOCRIT 38.8 % (35.4-49); LYMPH % 6.6 % (8-40); MCH 27.7 pg (25.7-33.7); MCHC 30.9 g/dl (32.0-35.9); MEAN CELL VOLUME 89.8 fl (80-96); MEAN PLT VOLUME 8.9 fl (7.5-11.1); MONO % 7.4 % (3.8-10.2); NEUT % 83.1 % (42.8-82.8); PLATELET COUNT 123 10^3/uL (134-434); RBC 4.32 M/mm3 (4.00-5.60); RDW 16.1 % (11.9-15.9); WHITE BLOOD COUNT 9.9 K/mm3 (4.0-10.0)
[2022-06-07] MEDS ORDERED: AZITHROMYCIN IVPB 500 MG/250 ML BAG IVPB ONE (13:40)
[2022-06-07] MEDS ORDERED: methylPREDNISolone NA SUCC 125 MG/2 ML VIAL ONE (13:40)
[2022-06-07 13:52] LABS: CALCIUM 8.3 mg/dL (8.5-10.1)
[2022-06-07 13:57] LABS: CREATININE 1.7 mg/dL (0.55-1.3)
[2022-06-07] MEDS: AZITHROMYCIN IVPB 500 MG/250 ML BAG IVPB SCH (14:04)
[2022-06-07] MEDS ORDERED: PIPERACILLIN/TAZOB 3.375 GM 3.375 GM/50 ML BAG IVPB ONE (14:06)
[2022-06-07] MEDS ORDERED: HEPARIN NA (PORCINE) 5,000 UNITS/ML 1ML VIAL ONE (14:14)
[2022-06-07 14:47] LABS: ARTERIAL BLD GAS O2 SATURATION 61.8 % (95-98); ARTERIAL BLOOD GAS PO2 47.6 mmHg (80-100)
[2022-06-07 14:48] LABS: ALLENS TEST POSITIVE
[2022-06-07 14:50] LABS: ARTERIAL BLOOD GAS pH 6.997 (7.350-7.450)
[2022-06-07] MEDS ORDERED: FUROSEMIDE 40 MG/4 ML INJECTABLE VIAL IVPUSH ONE (16:23)
[2022-06-07 17:04] LABS: ARTERIAL BLOOD GAS BASE EXCESS -0.8 mmol/L (-2-2); ARTERIAL BLOOD GAS PO2 111.3 mmHg (80-100); ARTERIAL BLOOD GAS pH 7.226 (7.350-7.450)
[2022-06-07] MEDS: PIPERACILLIN/TAZOB 3.375 GM 3.375 GM in DEXTROSE 5%-WATER - 50 ML IVPB SCH (17:04)
[2022-06-07 17:08] LABS: ALLENS TEST POSITIVE
[2022-06-07] MEDS: methylPREDNISolone NA SUCC 40 MG/1 ML VIAL IVPUSH SCH (20:15)
[2022-06-07] MEDS: CHLORHEXIDINE GLUCONATE 4% CLEANSER FOR DECOLONIZATION TP SCH (21:30)
[2022-06-07] MEDS: MUPIROCIN 2% TOPICAL OINTMENT FOR DECOLONIZATION NS SCH (21:30)
[2022-06-07] MEDS: D5-1/2NS+10 MEQ KCL - 10 MEQ/1,000 ML INFUS.BAG IV SCH (21:30)
[2022-06-08] MEDS: PIPERACILLIN/TAZOB 3.375 GM 3.375 GM in DEXTROSE 5%-WATER - 50 ML IVPB SCH ×3 (02:40→17:47)
[2022-06-08] MEDS: methylPREDNISolone NA SUCC 40 MG/1 ML VIAL IVPUSH SCH ×3 (02:40→18:36)
[2022-06-08] MEDS: HEPARIN NA (PORCINE) 5,000 UNITS/ML 1ML VIAL SQ SCH ×3 (06:26→22:10)
[2022-06-08 07:37] LABS: HEMATOCRIT 36.2 % (35.4-49); HEMOGLOBIN 11.2 GM/dL (11.7-16.9); MCH 27.5 pg (25.7-33.7); MCHC 30.8 g/dl (32.0-35.9); MEAN CELL VOLUME 89.2 fl (80-96); MEAN PLT VOLUME 9.4 fl (7.5-11.1); PLATELET COUNT 104 10^3/uL (134-434); RBC 4.06 M/mm3 (4.00-5.60); WHITE BLOOD COUNT 6.7 K/mm3 (4.0-10.0)
[2022-06-08 07:54] LABS: CALCIUM 8.2 mg/dL (8.5-10.1)
[2022-06-08 07:55] LABS: BLOOD UREA NITROGEN 29.4 mg/dL (7-18)
[2022-06-08 07:56] LABS: MAGNESIUM 2.3 mg/dL (1.8-2.4)
[2022-06-08 07:58] LABS: CREATININE 1.6 mg/dL (0.55-1.3)
[2022-06-08 07:59] LABS: PHOSPHOROUS 3.8 mg/dL (2.5-4.9)
[2022-06-08] MEDS: AZITHROMYCIN IVPB 500 MG/250 ML BAG IVPB SCH (09:03)
[2022-06-08] MEDS: PANTOPRAZOLE SODIUM 40 MG VIAL IVPUSH SCH (09:03)
[2022-06-08] MEDS: MUPIROCIN 2% TOPICAL OINTMENT FOR DECOLONIZATION NS SCH ×2 (09:04→22:10)
[2022-06-08 09:31] LABS: ANISOCYTOSIS 0; MACROCYTOSIS 0; PLATELET ESTIMATE DECREASED
[2022-06-08] MEDS ORDERED: FUROSEMIDE 40 MG/4 ML INJECTABLE VIAL IVPUSH SCH (10:00)
[2022-06-08] MEDS ORDERED: CYANOCOBALAMIN (VITAMIN B-12) 1000 MCG/1 ML VIAL IM SCH (10:00)
[2022-06-08] MEDS ORDERED: IRON SUCROSE INJECTION 300 MG in SODIUM CHLORIDE 235 ML IVPB ONE (10:00)
[2022-06-08 11:19] LABS: ARTERIAL BLD GAS O2 SATURATION 96.2 % (95-98); ARTERIAL BLOOD GAS BASE EXCESS 5.7 mmol/L (-2-2); ARTERIAL BLOOD GAS PO2 87.5 mmHg (80-100); ARTERIAL BLOOD GAS pH 7.372 (7.350-7.450)
[2022-06-08 11:20] LABS: ALLENS TEST POSITIVE
[2022-06-08 11:21] LABS: VENT MODE S/T; VENT RATE 20
[2022-06-08] MEDS ORDERED: ALBUTEROL SO4 2.5/IPRATROPIUM 0.5 INH SOL 3 ML VIAL.NEB. NEB ONE (12:00)
[2022-06-08] MEDS: ALBUTEROL SO4 2.5/IPRATROPIUM 0.5 INH SOL 3 ML VIAL.NEB. NEB SCH ×3 (13:15→20:12)
[2022-06-08] MEDS: FUROSEMIDE 40 MG/4 ML INJECTABLE VIAL IVPUSH SCH (13:36)
[2022-06-08] MEDS: CHLORHEXIDINE GLUCONATE 4% CLEANSER FOR DECOLONIZATION TP SCH (22:10)
[2022-06-08] MEDS ORDERED: DEXMEDETOMIDINE PREMIX 400 MCG/100 ML BAG IVPB ONE (22:13)
[2022-06-08] MEDS: DEXMEDETOMIDINE PREMIX 400 MCG/100 ML BAG IVPB SCH (22:48)
[2022-06-09] MEDS: DEXMEDETOMIDINE PREMIX 400 MCG/100 ML BAG IVPB SCH ×2 (00:21→05:26)
[2022-06-09] MEDS: PIPERACILLIN/TAZOB 3.375 GM 3.375 GM in DEXTROSE 5%-WATER - 50 ML IVPB SCH ×3 (01:56→17:47)
[2022-06-09] MEDS: methylPREDNISolone NA SUCC 40 MG/1 ML VIAL IVPUSH SCH ×3 (02:56→18:21)
[2022-06-09] MEDS: FUROSEMIDE 40 MG/4 ML INJECTABLE VIAL IVPUSH SCH ×2 (05:32→14:34)
[2022-06-09] MEDS: HEPARIN NA (PORCINE) 5,000 UNITS/ML 1ML VIAL SQ SCH ×3 (05:32→21:47)
[2022-06-09 06:27] LABS: ARTERIAL BLD GAS O2 SATURATION 96.8 % (95-98); ARTERIAL BLOOD GAS BASE EXCESS 7.5 mmol/L (-2-2); ARTERIAL BLOOD GAS PO2 88.5 mmHg (80-100); ARTERIAL BLOOD GAS pH 7.425 (7.350-7.450)
[2022-06-09 07:15] LABS: HEMATOCRIT 37.5 % (35.4-49); HEMOGLOBIN 12.1 GM/dL (11.7-16.9); MCH 27.8 pg (25.7-33.7); MCHC 32.2 g/dl (32.0-35.9); MEAN CELL VOLUME 86.5 fl (80-96); MEAN PLT VOLUME 8.9 fl (7.5-11.1); PLATELET COUNT 107 10^3/uL (134-434); RBC 4.33 M/mm3 (4.00-5.60); RDW 15.9 % (11.9-15.9); WHITE BLOOD COUNT 7.3 K/mm3 (4.0-10.0)
[2022-06-09 07:57] LABS: CALCIUM 8.8 mg/dL (8.5-10.1)
[2022-06-09 07:58] LABS: ALBUMIN 3.1 g/dl (3.4-5.0); BLOOD UREA NITROGEN 30.5 mg/dL (7-18); MAGNESIUM 2.2 mg/dL (1.8-2.4)
[2022-06-09 08:01] LABS: CREATININE 1.4 mg/dL (0.55-1.3); PHOSPHOROUS 2.9 mg/dL (2.5-4.9); TOT PROT 6.9 g/dl (6.4-8.2)
[2022-06-09 08:02] LABS: BILIRUBIN,TOTAL 1.1 mg/dL (0.2-1)
[2022-06-09] MEDS: ALBUTEROL SO4 2.5/IPRATROPIUM 0.5 INH SOL 3 ML VIAL.NEB. NEB SCH ×4 (08:35→20:56)
[2022-06-09 09:06] LABS: ANISOCYTOSIS 3+; MACROCYTOSIS 0; OVALOCYTE 2+; PLATELET ESTIMATE DECREASED
[2022-06-09] MEDS: AZITHROMYCIN IVPB 500 MG/250 ML BAG IVPB SCH (09:16)
[2022-06-09] MEDS: PANTOPRAZOLE SODIUM 40 MG VIAL IVPUSH SCH (09:23)
[2022-06-09] MEDS: MUPIROCIN 2% TOPICAL OINTMENT FOR DECOLONIZATION NS SCH ×2 (09:25→21:47)
[2022-06-09] MEDS: D5-1/2NS+10 MEQ KCL - 10 MEQ/1,000 ML INFUS.BAG IV SCH (15:20)
[2022-06-09] MEDS: CHLORHEXIDINE GLUCONATE 4% CLEANSER FOR DECOLONIZATION TP SCH (21:47)
[2022-06-10] MEDS: PIPERACILLIN/TAZOB 3.375 GM 3.375 GM in DEXTROSE 5%-WATER - 50 ML IVPB SCH ×3 (03:00→17:42)
[2022-06-10] MEDS: methylPREDNISolone NA SUCC 40 MG/1 ML VIAL IVPUSH SCH ×3 (03:21→18:42)
[2022-06-10] MEDS: FUROSEMIDE 40 MG/4 ML INJECTABLE VIAL IVPUSH SCH (06:34)
[2022-06-10] MEDS: HEPARIN NA (PORCINE) 5,000 UNITS/ML 1ML VIAL SQ SCH ×3 (06:34→21:27)
[2022-06-10 08:17] LABS: HEMATOCRIT 36.3 % (35.4-49); HEMOGLOBIN 11.6 GM/dL (11.7-16.9); MCH 27.7 pg (25.7-33.7); MCHC 31.9 g/dl (32.0-35.9); MEAN CELL VOLUME 86.7 fl (80-96); MEAN PLT VOLUME 9.4 fl (7.5-11.1); PLATELET COUNT 125 10^3/uL (134-434); RBC 4.19 M/mm3 (4.00-5.60); RDW 16.3 % (11.9-15.9); WHITE BLOOD COUNT 7.2 K/mm3 (4.0-10.0)
[2022-06-10 08:31] LABS: CALCIUM 8.8 mg/dL (8.5-10.1)
[2022-06-10 08:32] LABS: BLOOD UREA NITROGEN 34.8 mg/dL (7-18)
[2022-06-10 08:35] LABS: CREATININE 1.3 mg/dL (0.55-1.3)
[2022-06-10 09:17] LABS: ANISOCYTOSIS 2+; MACROCYTOSIS 0; OVALOCYTE 1+
[2022-06-10] MEDS: ALBUTEROL SO4 2.5/IPRATROPIUM 0.5 INH SOL 3 ML VIAL.NEB. NEB SCH ×4 (09:18→20:09)
[2022-06-10] MEDS ORDERED: PANTOPRAZOLE SODIUM 40 MG VIAL IVPUSH SCH (10:00)
[2022-06-10] MEDS: AZITHROMYCIN IVPB 500 MG/250 ML BAG IVPB SCH (10:44)
[2022-06-10] MEDS: MUPIROCIN 2% TOPICAL OINTMENT FOR DECOLONIZATION NS SCH ×2 (10:44→21:26)
[2022-06-10] MEDS: KCL 10 MEQ IVPB 10 MEQ/100 ML INFUS.BAG IVPB SCH ×3 (12:30→14:45)
[2022-06-10] MEDS: DULoxetine HCL 30 MG CAPSULE.DR PO SCH (17:42)
[2022-06-10] MEDS: ASCORBIC ACID 500 MG TABLET (FP) PO SCH (17:42)
[2022-06-10] MEDS: GABAPENTIN 100 MG CAPSULE PO SCH (21:27)
[2022-06-10] MEDS: ATORVASTATIN CA 40 MG TABLET (FP) PO SCH (21:27)
[2022-06-10] MEDS: MIRTAZAPINE 15 MG TABLET (FP) PO SCH (21:27)
[2022-06-11] MEDS: PIPERACILLIN/TAZOB 3.375 GM 3.375 GM in DEXTROSE 5%-WATER - 50 ML IVPB SCH ×3 (01:41→17:16)
[2022-06-11] MEDS: HEPARIN NA (PORCINE) 5,000 UNITS/ML 1ML VIAL SQ SCH ×3 (05:23→21:22)
[2022-06-11] MEDS: methylPREDNISolone NA SUCC 40 MG/1 ML VIAL IVPUSH SCH ×3 (05:23→20:00)
[2022-06-11] MEDS: GABAPENTIN 100 MG CAPSULE PO SCH ×3 (05:24→21:22)
[2022-06-11] MEDS: ALBUTEROL SO4 2.5/IPRATROPIUM 0.5 INH SOL 3 ML VIAL.NEB. NEB SCH ×4 (08:05→20:25)
[2022-06-11 08:19] LABS: CALCIUM 8.6 mg/dL (8.5-10.1)
[2022-06-11 08:20] LABS: ALBUMIN 2.9 g/dl (3.4-5.0); BLOOD UREA NITROGEN 34.1 mg/dL (7-18)
[2022-06-11 08:23] LABS: CREATININE 1.3 mg/dL (0.55-1.3)
[2022-06-11 08:24] LABS: BILIRUBIN,TOTAL 2.3 mg/dL (0.2-1)
[2022-06-11] MEDS: DULoxetine HCL 30 MG CAPSULE.DR PO SCH (10:02)
[2022-06-11] MEDS: ASCORBIC ACID 500 MG TABLET (FP) PO SCH (10:02)
[2022-06-11] MEDS: FUROSEMIDE 40 MG/4 ML INJECTABLE VIAL IVPUSH SCH (10:02)
[2022-06-11] MEDS: PANTOPRAZOLE 40 MG TABLET PO SCH (10:02)
[2022-06-11] MEDS: TAMSULOSIN HCL 0.4 MG CAP PO SCH (10:02)
[2022-06-11] MEDS: CYANOCOBALAMIN 1,000 MCG TABLET (FP) PO SCH (10:02)
[2022-06-11] MEDS: AZITHROMYCIN IVPB 500 MG/250 ML BAG IVPB SCH (10:03)
[2022-06-11] MEDS: MUPIROCIN 2% TOPICAL OINTMENT FOR DECOLONIZATION NS SCH ×2 (11:07→21:28)
[2022-06-11] MEDS: ATORVASTATIN CA 40 MG TABLET (FP) PO SCH (21:22)
[2022-06-11] MEDS: MIRTAZAPINE 15 MG TABLET (FP) PO SCH (21:22)
[2022-06-11] MEDS: NYSTATIN POWDER 100,000 UNITS/GM - 15 GM TOPICAL POWDER TP SCH (21:29)
[2022-06-11] MEDS: CHLORHEXIDINE GLUCONATE 4% CLEANSER FOR DECOLONIZATION TP SCH (21:29)
[2022-06-12] MEDS: methylPREDNISolone NA SUCC 40 MG/1 ML VIAL IVPUSH SCH ×3 (02:56→18:28)
[2022-06-12] MEDS: PIPERACILLIN/TAZOB 3.375 GM 3.375 GM in DEXTROSE 5%-WATER - 50 ML IVPB SCH ×3 (02:56→18:28)
[2022-06-12] MEDS: GABAPENTIN 100 MG CAPSULE PO SCH ×3 (05:23→21:23)
[2022-06-12] MEDS: HEPARIN NA (PORCINE) 5,000 UNITS/ML 1ML VIAL SQ SCH ×3 (05:23→21:22)
[2022-06-12] MEDS: ALBUTEROL SO4 2.5/IPRATROPIUM 0.5 INH SOL 3 ML VIAL.NEB. NEB SCH ×4 (08:07→20:41)
[2022-06-12 08:43] LABS: HEMATOCRIT 34.6 % (35.4-49); HEMOGLOBIN 11.1 GM/dL (11.7-16.9); MCH 27.8 pg (25.7-33.7); MEAN PLT VOLUME 9.3 fl (7.5-11.1); PLATELET COUNT 102 10^3/uL (134-434); RBC 3.98 M/mm3 (4.00-5.60); RDW 15.6 % (11.9-15.9); WHITE BLOOD COUNT 4.7 K/mm3 (4.0-10.0)
[2022-06-12 08:56] LABS: CALCIUM 8.5 mg/dL (8.5-10.1)
[2022-06-12 08:57] LABS: BLOOD UREA NITROGEN 45.1 mg/dL (7-18)
[2022-06-12 09:00] LABS: CREATININE 1.4 mg/dL (0.55-1.3)
[2022-06-12] MEDS: FUROSEMIDE 40 MG/4 ML INJECTABLE VIAL IVPUSH SCH (09:23)
[2022-06-12] MEDS: CYANOCOBALAMIN 1,000 MCG TABLET (FP) PO SCH (09:24)
[2022-06-12] MEDS: ASCORBIC ACID 500 MG TABLET (FP) PO SCH (09:24)
[2022-06-12] MEDS: DULoxetine HCL 30 MG CAPSULE.DR PO SCH (09:24)
[2022-06-12] MEDS: TAMSULOSIN HCL 0.4 MG CAP PO SCH (09:24)
[2022-06-12] MEDS: PANTOPRAZOLE 40 MG TABLET PO SCH (09:24)
[2022-06-12] MEDS: MUPIROCIN 2% TOPICAL OINTMENT FOR DECOLONIZATION NS SCH (09:25)
[2022-06-12] MEDS: NYSTATIN POWDER 100,000 UNITS/GM - 15 GM TOPICAL POWDER TP SCH ×2 (09:28→21:27)
[2022-06-12 10:46] LABS: ANISOCYTOSIS 0; HELMET CELLS 0; HOWELL-JOLLY BODIES 0; MACROCYTOSIS 0; OVALOCYTE 0; ROULEAU 0; SICKELED CELLS 0; TARGET CELLS 0; TEAR DROP CELLS 0; TOXIC GRANULATION 0
[2022-06-12] MEDS: KCL 10 MEQ IVPB 10 MEQ/100 ML INFUS.BAG IVPB SCH ×3 (10:47→14:31)
[2022-06-12 20:20] VITALS: BMI 39.4
[2022-06-12] MEDS: MIRTAZAPINE 15 MG TABLET (FP) PO SCH (21:22)
[2022-06-12] MEDS: ATORVASTATIN CA 40 MG TABLET (FP) PO SCH (21:23)
[2022-06-12] MEDS: CHLORHEXIDINE GLUCONATE 4% CLEANSER FOR DECOLONIZATION TP SCH (21:27)
[2022-06-13] MEDS: PIPERACILLIN/TAZOB 3.375 GM 3.375 GM in DEXTROSE 5%-WATER - 50 ML IVPB SCH ×3 (02:59→17:40)
[2022-06-13] MEDS: methylPREDNISolone NA SUCC 40 MG/1 ML VIAL IVPUSH SCH ×3 (03:02→21:14)
[2022-06-13] MEDS: HEPARIN NA (PORCINE) 5,000 UNITS/ML 1ML VIAL SQ SCH (05:36)
[2022-06-13] MEDS: GABAPENTIN 100 MG CAPSULE PO SCH ×3 (05:36→21:13)
[2022-06-13 07:54] LABS: HEMATOCRIT 36.9 % (35.4-49); HEMOGLOBIN 11.7 GM/dL (11.7-16.9); MCHC 31.8 g/dl (32.0-35.9); MEAN CELL VOLUME 87.9 fl (80-96); MEAN PLT VOLUME 8.9 fl (7.5-11.1); PLATELET COUNT 91 10^3/uL (134-434); RDW 15.5 % (11.9-15.9); WHITE BLOOD COUNT 5.7 K/mm3 (4.0-10.0)
[2022-06-13] MEDS: ALBUTEROL SO4 2.5/IPRATROPIUM 0.5 INH SOL 3 ML VIAL.NEB. NEB SCH ×4 (08:24→20:05)
[2022-06-13 08:41] LABS: BLOOD UREA NITROGEN 45.6 mg/dL (7-18); CALCIUM 8.8 mg/dL (8.5-10.1)
[2022-06-13 08:44] LABS: CREATININE 1.4 mg/dL (0.55-1.3)
[2022-06-13] MEDS: TAMSULOSIN HCL 0.4 MG CAP PO SCH (09:23)
[2022-06-13] MEDS: ASCORBIC ACID 500 MG TABLET (FP) PO SCH (09:23)
[2022-06-13] MEDS: NYSTATIN POWDER 100,000 UNITS/GM - 15 GM TOPICAL POWDER TP SCH ×2 (09:23→21:18)
[2022-06-13] MEDS: PANTOPRAZOLE 40 MG TABLET PO SCH (09:23)
[2022-06-13] MEDS: DULoxetine HCL 30 MG CAPSULE.DR PO SCH (09:23)
[2022-06-13] MEDS: FUROSEMIDE 40 MG/4 ML INJECTABLE VIAL IVPUSH SCH (09:23)
[2022-06-13] MEDS: CYANOCOBALAMIN 1,000 MCG TABLET (FP) PO SCH (09:23)
[2022-06-13] MEDS ORDERED: METOPROLOL TARTRATE 5 MG/5 ML VIAL ONE (10:10)
[2022-06-13] MEDS: KCL 10 MEQ IVPB 10 MEQ/100 ML INFUS.BAG IVPB SCH ×3 (10:48→12:30)
[2022-06-13 10:55] LABS: ANISOCYTOSIS 0; MACROCYTOSIS 0; OVALOCYTE 1+
[2022-06-13] MEDS ORDERED: METOPROLOL TARTRATE 5 MG/5 ML VIAL IVPUSH ONE (12:18)
[2022-06-13] MEDS ORDERED: dilTIAZem HCL 50 MG/10 ML - 10 ML VIAL IVPUSH PRN (12:26)
[2022-06-13] MEDS: APIXABAN 5 MG TABLET PO SCH ×2 (12:30→21:13)
[2022-06-13] MEDS: dilTIAZem HCL 60 MG TABLET PO SCH (17:40)
[2022-06-13] MEDS: ATORVASTATIN CA 40 MG TABLET (FP) PO SCH (21:12)
[2022-06-13] MEDS: MIRTAZAPINE 15 MG TABLET (FP) PO SCH (21:12)
[2022-06-14] MEDS: dilTIAZem HCL 60 MG TABLET PO SCH ×4 (00:09→18:43)
[2022-06-14] MEDS: PIPERACILLIN/TAZOB 3.375 GM 3.375 GM in DEXTROSE 5%-WATER - 50 ML IVPB SCH ×2 (01:16→09:45)
[2022-06-14] MEDS: GABAPENTIN 100 MG CAPSULE PO SCH ×3 (05:49→21:53)
[2022-06-14 07:16] LABS: HEMATOCRIT 36.1 % (35.4-49); HEMOGLOBIN 11.4 GM/dL (11.7-16.9); MCH 27.8 pg (25.7-33.7); MCHC 31.6 g/dl (32.0-35.9); MEAN CELL VOLUME 88.1 fl (80-96); MEAN PLT VOLUME 9.3 fl (7.5-11.1); PLATELET COUNT 82 10^3/uL (134-434); RDW 16.3 % (11.9-15.9); WHITE BLOOD COUNT 7.9 K/mm3 (4.0-10.0)
[2022-06-14 07:40] LABS: BLOOD UREA NITROGEN 56.3 mg/dL (7-18); CALCIUM 8.4 mg/dL (8.5-10.1)
[2022-06-14 07:43] LABS: CREATININE 1.6 mg/dL (0.55-1.3)
[2022-06-14] MEDS: ALBUTEROL SO4 2.5/IPRATROPIUM 0.5 INH SOL 3 ML VIAL.NEB. NEB SCH ×4 (07:55→19:48)
[2022-06-14 09:24] LABS: ANISOCYTOSIS 0; MACROCYTOSIS 0
[2022-06-14] MEDS: methylPREDNISolone NA SUCC 40 MG/1 ML VIAL IVPUSH SCH ×2 (09:43→21:55)
[2022-06-14] MEDS: ASCORBIC ACID 500 MG TABLET (FP) PO SCH (09:44)
[2022-06-14] MEDS: CYANOCOBALAMIN 1,000 MCG TABLET (FP) PO SCH (09:44)
[2022-06-14] MEDS: NYSTATIN POWDER 100,000 UNITS/GM - 15 GM TOPICAL POWDER TP SCH ×2 (09:44→21:54)
[2022-06-14] MEDS: DULoxetine HCL 30 MG CAPSULE.DR PO SCH (09:44)
[2022-06-14] MEDS: FUROSEMIDE 40 MG/4 ML INJECTABLE VIAL IVPUSH SCH (09:44)
[2022-06-14] MEDS: PANTOPRAZOLE 40 MG TABLET PO SCH (09:44)
[2022-06-14] MEDS: TAMSULOSIN HCL 0.4 MG CAP PO SCH (09:44)
[2022-06-14] MEDS: APIXABAN 5 MG TABLET PO SCH ×2 (09:44→21:53)
[2022-06-14 14:46] VITALS: RESP 20
[2022-06-14] MEDS: ATORVASTATIN CA 40 MG TABLET (FP) PO SCH (21:53)
[2022-06-14] MEDS: MIRTAZAPINE 15 MG TABLET (FP) PO SCH (21:54)
[2022-06-15] MEDS: dilTIAZem HCL 60 MG TABLET PO SCH ×4 (05:44→17:16)
[2022-06-15] MEDS: GABAPENTIN 100 MG CAPSULE PO SCH ×3 (05:44→21:20)
[2022-06-15] MEDS: ALBUTEROL SO4 2.5/IPRATROPIUM 0.5 INH SOL 3 ML VIAL.NEB. NEB SCH ×3 (07:35→16:15)
[2022-06-15 08:41] LABS: ALBUMIN 2.7 g/dl (3.4-5.0); CALCIUM 8.5 mg/dL (8.5-10.1)
[2022-06-15 08:42] LABS: BLOOD UREA NITROGEN 53.7 mg/dL (7-18)
[2022-06-15 08:45] LABS: CREATININE 1.4 mg/dL (0.55-1.3)
[2022-06-15 08:46] LABS: TOT PROT 5.5 g/dl (6.4-8.2)
[2022-06-15] MEDS: TAMSULOSIN HCL 0.4 MG CAP PO SCH (09:59)
[2022-06-15] MEDS: DULoxetine HCL 30 MG CAPSULE.DR PO SCH (10:00)
[2022-06-15] MEDS: methylPREDNISolone NA SUCC 40 MG/1 ML VIAL IVPUSH SCH ×2 (10:00→21:21)
[2022-06-15] MEDS: CYANOCOBALAMIN 1,000 MCG TABLET (FP) PO SCH (10:00)
[2022-06-15] MEDS: PANTOPRAZOLE 40 MG TABLET PO SCH (10:00)
[2022-06-15] MEDS: ASCORBIC ACID 500 MG TABLET (FP) PO SCH (10:00)
[2022-06-15] MEDS: APIXABAN 5 MG TABLET PO SCH ×2 (10:00→21:20)
[2022-06-15] MEDS: NYSTATIN POWDER 100,000 UNITS/GM - 15 GM TOPICAL POWDER TP SCH (10:00)
[2022-06-15] MEDS: FUROSEMIDE 40 MG/4 ML INJECTABLE VIAL IVPUSH SCH (10:11)
[2022-06-15] MEDS: ATORVASTATIN CA 40 MG TABLET (FP) PO SCH (21:20)
[2022-06-15] MEDS: MIRTAZAPINE 15 MG TABLET (FP) PO SCH (21:20)
[2022-06-16] MEDS: GABAPENTIN 100 MG CAPSULE PO SCH ×3 (06:33→14:01)
[2022-06-16 08:57] VITALS: BP 122/60; PULSE 79; TEMP 97.7
[2022-06-16] MEDS: TAMSULOSIN HCL 0.4 MG CAP PO SCH (09:36)
[2022-06-16] MEDS: PANTOPRAZOLE 40 MG TABLET PO SCH (09:36)
[2022-06-16] MEDS: methylPREDNISolone NA SUCC 40 MG/1 ML VIAL IVPUSH SCH (09:37)
[2022-06-16] MEDS: ASCORBIC ACID 500 MG TABLET (FP) PO SCH (09:37)
[2022-06-16] MEDS: CYANOCOBALAMIN 1,000 MCG TABLET (FP) PO SCH (09:37)
[2022-06-16] MEDS: APIXABAN 5 MG TABLET PO SCH (09:37)
[2022-06-16] MEDS: DULoxetine HCL 30 MG CAPSULE.DR PO SCH (09:38)
[2022-06-16] MEDS ORDERED: FUROSEMIDE 40 MG TABLET (FP) PO SCH (10:00)
== END 2022-06-16 14:03 | DRG 291 ==
LOC: JER 15:10 → JERBED 17:49 → JICU 06-07 16:02 → J4W 06-09 12:18
PROVIDERS: ADMIT Internal Medicine; ATTEND Internal Medicine
DX: I13.0 Hypertensive heart and chronic kidney disease with heart failure and stage 1 through stage 4 chronic kidney disease, or unspecified chronic kidney disease (principal); G92.8 Other toxic encephalopathy; J18.9 Pneumonia, unspecified organism; J96.01 Acute respiratory failure with hypoxia; J96.02 Acute respiratory failure with hypercapnia; R53.2 Functional quadriplegia; I50.33 Acute on chronic diastolic (congestive) heart failure; E87.29 Other acidosis; J90 Pleural effusion, not elsewhere classified; Z68.41 Body mass index [BMI] 40.0-44.9, adult; J44.1 Chronic obstructive pulmonary disease with (acute) exacerbation; N17.9 Acute kidney failure, unspecified; J98.11 Atelectasis; N39.0 Urinary tract infection, site not specified; L03.90 Cellulitis, unspecified; E66.2 Morbid (severe) obesity with alveolar hypoventilation; G61.81 Chronic inflammatory demyelinating polyneuritis; E87.0 Hyperosmolality and hypernatremia; J44.0 Chronic obstructive pulmonary disease with (acute) lower respiratory infection; R64 Cachexia; I10 Essential (primary) hypertension; E78.5 Hyperlipidemia, unspecified; I25.10 Atherosclerotic heart disease of native coronary artery without angina pectoris; G62.9 Polyneuropathy, unspecified; G25.3 Myoclonus; D72.829 Elevated white blood cell count, unspecified; M48.061 Spinal stenosis, lumbar region without neurogenic claudication; I48.91 Unspecified atrial fibrillation; E78.00 Pure hypercholesterolemia, unspecified; I25.119 Atherosclerotic heart disease of native coronary artery with unspecified angina pectoris; E53.8 Deficiency of other specified B group vitamins; E86.0 Dehydration; F32.A Depression, unspecified; E87.6 Hypokalemia; N40.0 Benign prostatic hyperplasia without lower urinary tract symptoms; Z68.39 Body mass index [BMI] 39.0-39.9, adult; N18.9 Chronic kidney disease, unspecified; G47.00 Insomnia, unspecified
CPT/HCPCS: 0241U-QW; 36415; 36600; 70450-TC; 71045-TC-FY; 71250-TC; 74019-TC-FY; 76775-TC; 80048; 80053; 81003; 82140; 82550; 82553; 82607; 82728; 82803; 83036; 83540; 83550; 83605; 83735; 83880; 84100; 84443; 84484; 85025; 85379; 85610; 85651; 85730; 86140; 86850; 86900; 86901; 87040; 87086; 87899; 93005; 93010; 93306-TC; 94640; 94660; 94761; 95860-TC; 97116-GP; 97162-GP; 99285-25; C9803-CS; J1644; J1756; U0003; U0005

== ENCOUNTER 2024-04-29 14:53 | Inpatient (IN) | payer OTHER ==
[2024-04-29] MEDS: ALBUTEROL SO4 2.5/IPRATROPIUM 0.5 INH SOL 3 ML VIAL.NEB. NEB SCH (15:42)
[2024-04-29] MEDS ORDERED: ALBUTEROL SO4 2.5/IPRATROPIUM 0.5 INH SOL 3 ML VIAL.NEB. NEB ONE (15:45)
[2024-04-29 16:14] LABS: VENOUS BASE EXCESS 0.6 mmol/L (-2-2); VENOUS O2 SATURATION 74.5 % (70-80); VENOUS PCO2 60.6 mmHg (38-52); VENOUS PH 7.285 (7.310-7.410)
[2024-04-29 16:19] LABS: BASO % 0.8 % (0-2.0); EOS % 3.4 % (0-4.5); HEMATOCRIT 30.6 % (35.4-49); LYMPH % 5.6 % (8-40); MCH 32.7 pg (25.7-33.7); MCHC 32.8 g/dl (32.0-35.9); MEAN CELL VOLUME 99.9 fl (80-96); MEAN PLT VOLUME 8.9 fl (7.5-11.1); NEUT % 85.2 % (42.8-82.8); PLATELET COUNT 120 10^3/uL (134-434); RBC 3.06 M/mm3 (4.00-5.60); RDW 16.5 % (11.9-15.9); WHITE BLOOD COUNT 8.1 K/mm3 (4.0-10.0)
[2024-04-29 16:30] LABS: INR 1.52 (0.83-1.09); PROTHROMBIN TIME (PATIENT) 17.3 SEC (9.7-13.0)
[2024-04-29 16:33] LABS: ACTIVATED PTT 36.8 SECONDS (25.2-36.5)
[2024-04-29 16:49] LABS: POTASSIUM 4.2 mmol/L (3.5-5.1)
[2024-04-29 16:51] LABS: ALBUMIN 2.8 g/dl (3.4-5.0); CALCIUM 8.1 mg/dL (8.5-10.1)
[2024-04-29 16:54] LABS: CREATININE 2.4 mg/dL (0.55-1.3)
[2024-04-29 16:56] LABS: BILIRUBIN,TOTAL 0.9 mg/dL (0.2-1); TOT PROT 6.1 g/dl (6.4-8.2)
[2024-04-29] MEDS ORDERED: VANCOMYCIN 1 GRAM (PRE-DOCKED) 1,000 MG/250 ML BAG IVPB ONE (17:05)
[2024-04-29] MEDS ORDERED: FUROSEMIDE 40 MG/4 ML INJECTABLE VIAL ONE (17:05)
[2024-04-29] MEDS: FUROSEMIDE 40 MG/4 ML INJECTABLE VIAL IVPUSH ONE (17:06)
[2024-04-29] MEDS: VANCOMYCIN 1,000 MG in DEXTROSE 5%-WATER - 250 ML IVPB ONE (17:06)
[2024-04-29] MEDS ORDERED: PIPERACILLIN/TAZOB 4.5 GM 4.5 GM/100 ML BAG IVPB ONE (18:01)
[2024-04-29] MEDS ORDERED: PANTOPRAZOLE 40 MG TABLET PO ONE (18:01)
[2024-04-29] MEDS: PANTOPRAZOLE 40 MG TABLET PO SCH (18:09)
[2024-04-29] MEDS: PIPERACILLIN/TAZOB 4.5 GM 4.5 GM in DEXTROSE 5%-WATER 100 ML IVPB ONE (18:09)
[2024-04-29 19:05] LABS: EPI CELLS 5 /uL (0-25.1); HYALINE CASTS 1 /uL (0-3.1); PH,URINE 6.5 (5.0-8.0); URINE APPEARANCE CLEAR; URINE BILIRUBIN NEGATIVE (NEGATIVE); URINE COLOR YELLOW; URINE GLUCOSE (UA) NEGATIVE (NEGATIVE); URINE KETONE NEGATIVE (NEGATIVE); URINE LEUK ESTERASE 3+ (NEGATIVE); URINE NITRITE POSITIVE (NEGATIVE); URINE PROTEIN NEGATIVE (NEGATIVE); URINE RBC 93 /uL (0-23.9); URINE UROBILINOGEN 0.2 mg/dL (0.2-1.0); URINE WBC 445 /uL (0-25.8)
[2024-04-29] MEDS ORDERED: APIXABAN 5 MG TABLET ONE (22:01)
[2024-04-29] MEDS ORDERED: ATORVASTATIN CA 40 MG TABLET (FP) ONE (22:01)
[2024-04-29] MEDS ORDERED: MONTELUKAST NA 10 MG TABLET ONE (22:01)
[2024-04-29] MEDS ORDERED: GABAPENTIN 100 MG CAPSULE ONE (22:02)
[2024-04-29] MEDS ORDERED: MIRTAZAPINE 15 MG TABLET (FP) ONE (22:02)
[2024-04-29] MEDS: APIXABAN 5 MG TABLET PO SCH (22:16)
[2024-04-29] MEDS: ATORVASTATIN CA 40 MG TABLET (FP) PO SCH (22:16)
[2024-04-29] MEDS: GABAPENTIN 100 MG CAPSULE PO SCH (22:16)
[2024-04-29] MEDS: MONTELUKAST NA 10 MG TABLET PO SCH (22:17)
[2024-04-29] MEDS: MIRTAZAPINE 15 MG TABLET (FP) PO SCH (22:17)
[2024-04-29 22:54] LABS: URINE BACTERIA 649.1 /uL (0-1359)
[2024-04-30 00:13] VITALS: BMI 34.3
[2024-04-30] MEDS: ACETAMINOPHEN 325 MG TABLET (FP) PO PRN (01:45)
[2024-04-30] MEDS: IRON SUCROSE INJECTION 300 MG in SODIUM CHLORIDE 235 ML IVPB ONE (07:04)
[2024-04-30] MEDS: TAMSULOSIN HCL 0.4 MG CAP PO SCH (09:30)
[2024-04-30] MEDS: MULTIVITAMINS THER W-MINERALS COMBO TABLET (FP) PO SCH (09:41)
[2024-04-30] MEDS: DULoxetine HCL 30 MG CAPSULE.DR PO SCH (09:42)
[2024-04-30] MEDS: CYANOCOBALAMIN 1,000 MCG TABLET (FP) PO SCH (09:42)
[2024-04-30] MEDS: FOLIC ACID 1 MG TABLET (FP) PO SCH (09:42)
[2024-04-30] MEDS: ASCORBIC ACID 500 MG TABLET (FP) PO SCH (09:43)
[2024-04-30] MEDS: FINASTERIDE 5 MG TABLET (FP) PO SCH (09:43)
[2024-04-30 09:59] LABS: ARTERIAL BLD GAS O2 SATURATION 91.7 % (95-98); ARTERIAL BLOOD GAS BASE EXCESS 2.2 mmol/L (-2-2); ARTERIAL BLOOD GAS PO2 71.7 mmHg (80-100); ARTERIAL BLOOD GAS pH 7.272 (7.350-7.450)
[2024-04-30 10:00] LABS: ALLENS TEST POSITIVE
[2024-04-30] MEDS: FUROSEMIDE 40 MG/4 ML INJECTABLE VIAL IVPUSH ONE (11:53)
[2024-04-30] MEDS: CEFAZOLIN SODIUM 2 GM in DEXTROSE 5%-WATER 100 ML IVPB SCH (16:54)
[2024-04-30] MEDS ORDERED: CEFAZOLIN SODIUM 2 GM VIAL ONE (21:36)
[2024-05-01 07:31] LABS: BASO % 0.3 % (0-2.0); EOS % 2.2 % (0-4.5); HEMATOCRIT 30.6 % (35.4-49); LYMPH % 3.6 % (8-40); MCH 33.3 pg (25.7-33.7); MCHC 32.6 g/dl (32.0-35.9); MEAN CELL VOLUME 102.1 fl (80-96); MEAN PLT VOLUME 8.9 fl (7.5-11.1); MONO % 5.1 % (3.8-10.2); NEUT % 88.8 % (42.8-82.8); PLATELET COUNT 118 10^3/uL (134-434); RBC 2.99 M/mm3 (4.00-5.60); RDW 16.7 % (11.9-15.9); WHITE BLOOD COUNT 10.2 K/mm3 (4.0-10.0)
[2024-05-01 07:42] LABS: POTASSIUM 4.3 mmol/L (3.5-5.1)
[2024-05-01 07:46] LABS: BLOOD UREA NITROGEN 44.4 mg/dL (7-18); CALCIUM 8.4 mg/dL (8.5-10.1)
[2024-05-01 07:50] LABS: CREATININE 2.1 mg/dL (0.55-1.3)
[2024-05-01] MEDS: BISACODYL 10 MG SUPP.RECT PR ONE (10:46)
[2024-05-01] MEDS: POLYETHYLENE GLYCOL (HEALTHYLAX) 3350 17 GM PACKET PO SCH (13:27)
[2024-05-01] MEDS: DOCUSATE SODIUM 100 MG CAPSULE (FP) PO SCH (13:45)
[2024-05-01] MEDS: methylPREDNISolone NA SUCC 40 MG/1 ML VIAL IVPUSH SCH (14:02)
[2024-05-01 15:13] LABS: ARTERIAL BLD GAS O2 SATURATION 90.7 % (95-98); ARTERIAL BLOOD GAS BASE EXCESS 3.2 mmol/L (-2-2); ARTERIAL BLOOD GAS PO2 63.1 mmHg (80-100)
[2024-05-01 15:15] LABS: ALLENS TEST POSITIVE; VENT MODE S/T; VENT RATE 12
[2024-05-02 07:41] LABS: HEMATOCRIT 29.8 % (35.4-49); HEMOGLOBIN 9.6 GM/dL (11.7-16.9); MCH 33.3 pg (25.7-33.7); MCHC 32.3 g/dl (32.0-35.9); MEAN CELL VOLUME 103.2 fl (80-96); MEAN PLT VOLUME 8.9 fl (7.5-11.1); PLATELET COUNT 116 10^3/uL (134-434); RBC 2.89 M/mm3 (4.00-5.60); RDW 16.6 % (11.9-15.9); WHITE BLOOD COUNT 6.3 K/mm3 (4.0-10.0)
[2024-05-02 07:57] LABS: POTASSIUM 4.3 mmol/L (3.5-5.1)
[2024-05-02 08:00] LABS: CALCIUM 8.8 mg/dL (8.5-10.1)
[2024-05-02 08:01] LABS: BLOOD UREA NITROGEN 46.3 mg/dL (7-18)
[2024-05-02 10:39] LABS: ANISOCYTOSIS 2+; MACROCYTOSIS 2+
[2024-05-02] MEDS ORDERED: FUROSEMIDE 40 MG/4 ML INJECTABLE VIAL ONE (11:49)
[2024-05-02] MEDS: FUROSEMIDE 40 MG/4 ML INJECTABLE VIAL IVPUSH ONE (11:52)
[2024-05-02] MEDS: MINERAL OIL 30 ML UNIT-DOSE CUP PO ONE (14:02)
[2024-05-02] MEDS: MINERAL OIL ENEMA 133 ML ENEMA RC ONE (14:02)
[2024-05-02] MEDS: FUROSEMIDE 40 MG/4 ML INJECTABLE VIAL IVPUSH SCH (15:40)
[2024-05-03 09:09] LABS: BASO % 0.1 % (0-2.0); HEMATOCRIT 27.6 % (35.4-49); MCH 33.1 pg (25.7-33.7); MCHC 32.6 g/dl (32.0-35.9); MEAN CELL VOLUME 101.5 fl (80-96); MEAN PLT VOLUME 9.1 fl (7.5-11.1); MONO % 4.1 % (3.8-10.2); NEUT % 89.8 % (42.8-82.8); PLATELET COUNT 127 10^3/uL (134-434); RBC 2.71 M/mm3 (4.00-5.60); RDW 16.9 % (11.9-15.9); WHITE BLOOD COUNT 7.8 K/mm3 (4.0-10.0)
[2024-05-03 09:56] LABS: POTASSIUM 4.3 mmol/L (3.5-5.1)
[2024-05-03 10:26] LABS: CALCIUM 9.1 mg/dL (8.5-10.1)
[2024-05-03 10:27] LABS: BLOOD UREA NITROGEN 55.7 mg/dL (7-18)
[2024-05-03 10:30] LABS: CREATININE 1.9 mg/dL (0.55-1.3)
[2024-05-03] MEDS: methylPREDNISolone NA SUCC 40 MG/1 ML VIAL IVPUSH SCH (14:00)
[2024-05-03] MEDS: FUROSEMIDE 40 MG/4 ML INJECTABLE VIAL IVPUSH ONE (14:31)
[2024-05-04 07:30] LABS: BASO % 0.3 % (0-2.0); EOS % 2.4 % (0-4.5); HEMATOCRIT 26.2 % (35.4-49); HEMOGLOBIN 8.6 GM/dL (11.7-16.9); LYMPH % 17.4 % (8-40); MCH 33.4 pg (25.7-33.7); MCHC 32.6 g/dl (32.0-35.9); MEAN CELL VOLUME 102.5 fl (80-96); MEAN PLT VOLUME 8.6 fl (7.5-11.1); MONO % 7.2 % (3.8-10.2); NEUT % 72.7 % (42.8-82.8); PLATELET COUNT 112 10^3/uL (134-434); RBC 2.56 M/mm3 (4.00-5.60); RDW 16.4 % (11.9-15.9); WHITE BLOOD COUNT 5.5 K/mm3 (4.0-10.0)
[2024-05-04 08:17] LABS: POTASSIUM 3.9 mmol/L (3.5-5.1)
[2024-05-04 08:21] LABS: BLOOD UREA NITROGEN 57.1 mg/dL (7-18); CALCIUM 8.8 mg/dL (8.5-10.1)
[2024-05-04 08:25] LABS: CREATININE 1.7 mg/dL (0.55-1.3)
[2024-05-04 09:24] VITALS: RESP 18
[2024-05-04] MEDS: POLYETHYLENE GLYCOL (HEALTHYLAX) 3350 17 GM PACKET PO SCH (09:59)
[2024-05-04] MEDS: IRON SUCROSE INJECTION 300 MG in SODIUM CHLORIDE 235 ML IVPB ONE (12:25)
[2024-05-05 09:09] LABS: BASO % 0.2 % (0-2.0); EOS % 1.8 % (0-4.5); HEMOGLOBIN 8.4 GM/dL (11.7-16.9); LYMPH % 9.1 % (8-40); MCHC 32.5 g/dl (32.0-35.9); MEAN CELL VOLUME 101.7 fl (80-96); MEAN PLT VOLUME 8.9 fl (7.5-11.1); NEUT % 81.9 % (42.8-82.8); PLATELET COUNT 108 10^3/uL (134-434); RBC 2.55 M/mm3 (4.00-5.60); WHITE BLOOD COUNT 6.8 K/mm3 (4.0-10.0)
[2024-05-05 09:31] LABS: POTASSIUM 4.1 mmol/L (3.5-5.1)
[2024-05-05 09:35] LABS: CALCIUM 8.8 mg/dL (8.5-10.1)
[2024-05-05 09:36] LABS: BLOOD UREA NITROGEN 48.6 mg/dL (7-18)
[2024-05-05 09:39] LABS: CREATININE 1.4 mg/dL (0.55-1.3)
[2024-05-05] MEDS ORDERED: SODIUM CHLORIDE NASAL SPRAY 44 ML BOTTLE NS PRN (13:15)
[2024-05-05] MEDS: CEPHALEXIN MONOHYDRATE 500 MG CAPSULE (UD) PO SCH (23:08)
[2024-05-06 07:29] LABS: BASO % 0.2 % (0-2.0); EOS % 0.5 % (0-4.5); HEMATOCRIT 25.7 % (35.4-49); HEMOGLOBIN 8.3 GM/dL (11.7-16.9); LYMPH % 9.7 % (8-40); MCH 32.7 pg (25.7-33.7); MCHC 32.2 g/dl (32.0-35.9); MEAN CELL VOLUME 101.8 fl (80-96); MEAN PLT VOLUME 9.4 fl (7.5-11.1); NEUT % 82.6 % (42.8-82.8); PLATELET COUNT 106 10^3/uL (134-434); RBC 2.52 M/mm3 (4.00-5.60); RDW 15.8 % (11.9-15.9); WHITE BLOOD COUNT 5.5 K/mm3 (4.0-10.0)
[2024-05-06 07:34] LABS: POTASSIUM 4.8 mmol/L (3.5-5.1)
[2024-05-06 07:38] LABS: CALCIUM 8.6 mg/dL (8.5-10.1)
[2024-05-06 07:39] LABS: BLOOD UREA NITROGEN 41.5 mg/dL (7-18)
[2024-05-06 07:41] LABS: CREATININE 1.3 mg/dL (0.55-1.3)
[2024-05-06] MEDS: MUPIROCIN 2% TOPICAL OINTMENT 22 GM TUBE TP SCH (17:17)
[2024-05-06 23:49] VITALS: BP 117/44; PULSE 58; TEMP 97.9
== END 2024-05-06 23:05 | DRG 189 ==
LOC: JER 14:53 → JERBED 17:07 → J4W 22:47
PROVIDERS: ADMIT Internal Medicine; ATTEND Internal Medicine
DX: J96.01 Acute respiratory failure with hypoxia (principal); I50.33 Acute on chronic diastolic (congestive) heart failure; I13.0 Hypertensive heart and chronic kidney disease with heart failure and stage 1 through stage 4 chronic kidney disease, or unspecified chronic kidney disease; L03.115 Cellulitis of right lower limb; L03.116 Cellulitis of left lower limb; D69.6 Thrombocytopenia, unspecified; D64.9 Anemia, unspecified; E66.9 Obesity, unspecified; M79.7 Fibromyalgia; J96.02 Acute respiratory failure with hypercapnia; N40.0 Benign prostatic hyperplasia without lower urinary tract symptoms; E78.5 Hyperlipidemia, unspecified; D50.9 Iron deficiency anemia, unspecified; G62.9 Polyneuropathy, unspecified; N18.9 Chronic kidney disease, unspecified; I25.10 Atherosclerotic heart disease of native coronary artery without angina pectoris; Z68.34 Body mass index [BMI] 34.0-34.9, adult
CPT/HCPCS: 0241U-QW; 36415; 36600; 71045-TC-FY; 71250-TC; 74230-TC-FY; 80048; 80053; 80061; 81003; 82728; 82803; 83036; 83540; 83550; 83605; 83880; 84443; 84484; 85025; 85610; 85730; 86850; 86900; 86901; 87040; 87081; 87086; 87186; 92611-GN; 93005; 93010; 93306-TC; 94660; 97116-GP; 97161-GP; 99291; J1756

== ENCOUNTER 2024-05-13 17:08 | Inpatient (IN) | payer OTHER ==
[2024-05-13 17:19] VITALS: BMI 32.0
[2024-05-13 19:18] LABS: BASO % 0.4 % (0-2.0); EOS % 3.2 % (0-4.5); HEMATOCRIT 21.5 % (35.4-49); MCHC 32.1 g/dl (32.0-35.9); MEAN CELL VOLUME 102.8 fl (80-96); MEAN PLT VOLUME 9.9 fl (7.5-11.1); MONO % 6.4 % (3.8-10.2); PLATELET COUNT 139 10^3/uL (134-434); RBC 2.09 M/mm3 (4.00-5.60); RDW 16.5 % (11.9-15.9); WHITE BLOOD COUNT 7.4 K/mm3 (4.0-10.0)
[2024-05-13 19:21] LABS: HEMOGLOBIN 6.9 GM/dL (11.7-16.9)
[2024-05-13 19:31] LABS: INR 2.17 (0.83-1.09)
[2024-05-13 19:34] LABS: ACTIVATED PTT 44.3 SECONDS (25.2-36.5)
[2024-05-13 19:38] LABS: POTASSIUM 4.3 mmol/L (3.5-5.1)
[2024-05-13 19:40] LABS: CALCIUM 8.1 mg/dL (8.5-10.1)
[2024-05-13 19:41] LABS: ALBUMIN 2.7 g/dl (3.4-5.0); BLOOD UREA NITROGEN 26.8 mg/dL (7-18)
[2024-05-13 19:45] LABS: CREATININE 1.7 mg/dL (0.55-1.3)
[2024-05-13 19:46] LABS: BILIRUBIN,TOTAL 0.6 mg/dL (0.2-1); TOT PROT 5.5 g/dl (6.4-8.2)
[2024-05-13] MEDS ORDERED: PANTOPRAZOLE SODIUM 40 MG VIAL ONE (19:46)
[2024-05-13] MEDS: PANTOPRAZOLE SODIUM 40 MG VIAL IVPUSH ONE (19:53)
[2024-05-13] MEDS: PANTOPRAZOLE SODIUM 40 MG VIAL IVPUSH SCH (21:53)
[2024-05-13] MEDS ORDERED: D5-1/2NS+10 MEQ KCL - 10 MEQ/1,000 ML INFUS.BAG IV SCH (22:00)
[2024-05-13] MEDS ORDERED: ATORVASTATIN CA 40 MG TABLET (FP) ONE (22:19)
[2024-05-13] MEDS: ATORVASTATIN CA 40 MG TABLET (FP) PO SCH (22:26)
[2024-05-14] MEDS: CYANOCOBALAMIN 1,000 MCG TABLET (FP) PO SCH (09:55)
[2024-05-14] MEDS: PANTOPRAZOLE SODIUM 40 MG VIAL IVPUSH SCH (09:55)
[2024-05-14] MEDS: FUROSEMIDE 40 MG TABLET (FP) PO SCH (09:56)
[2024-05-14] MEDS: DULoxetine HCL 30 MG CAPSULE.DR PO SCH (09:56)
[2024-05-14 10:46] LABS: BASO % 0.5 % (0-2.0); EOS % 2.7 % (0-4.5); HEMATOCRIT 23.6 % (35.4-49); HEMOGLOBIN 7.6 GM/dL (11.7-16.9); LYMPH % 7.1 % (8-40); MCHC 32.2 g/dl (32.0-35.9); MEAN CELL VOLUME 99.3 fl (80-96); MEAN PLT VOLUME 10.2 fl (7.5-11.1); MONO % 4.5 % (3.8-10.2); NEUT % 85.2 % (42.8-82.8); RBC 2.38 M/mm3 (4.00-5.60); RDW 18.2 % (11.9-15.9)
[2024-05-14 10:48] LABS: PLATELET COUNT 124 10^3/uL (134-434)
[2024-05-14 11:03] LABS: POTASSIUM 4.5 mmol/L (3.5-5.1)
[2024-05-14 11:07] LABS: CALCIUM 8.3 mg/dL (8.5-10.1)
[2024-05-14 11:08] LABS: BLOOD UREA NITROGEN 23.6 mg/dL (7-18)
[2024-05-14 11:11] LABS: CREATININE 1.4 mg/dL (0.55-1.3)
[2024-05-14] MEDS: FUROSEMIDE 40 MG/4 ML INJECTABLE VIAL IVPUSH ONE (12:55)
[2024-05-14] MEDS: MUPIROCIN 2% TOPICAL OINTMENT 22 GM TUBE TP SCH (21:36)
[2024-05-15 08:57] LABS: BASO % 0.5 % (0-2.0); EOS % 2.9 % (0-4.5); HEMATOCRIT 27.4 % (35.4-49); LYMPH % 8.9 % (8-40); MCH 32.7 pg (25.7-33.7); MEAN CELL VOLUME 98.9 fl (80-96); MEAN PLT VOLUME 9.7 fl (7.5-11.1); MONO % 6.1 % (3.8-10.2); NEUT % 81.6 % (42.8-82.8); PLATELET COUNT 124 10^3/uL (134-434); RBC 2.77 M/mm3 (4.00-5.60); WHITE BLOOD COUNT 5.9 K/mm3 (4.0-10.0)
[2024-05-15] MEDS: FUROSEMIDE 40 MG/4 ML INJECTABLE VIAL IVPUSH ONE (09:01)
[2024-05-15] MEDS: IRON SUCROSE INJECTION 300 MG in SODIUM CHLORIDE 235 ML IVPB ONE (09:02)
[2024-05-15] MEDS: PANTOPRAZOLE 40 MG TABLET PO SCH (09:04)
[2024-05-15 09:18] LABS: POTASSIUM 3.9 mmol/L (3.5-5.1)
[2024-05-15 09:22] LABS: BLOOD UREA NITROGEN 17.8 mg/dL (7-18); CALCIUM 8.3 mg/dL (8.5-10.1)
[2024-05-15 09:26] LABS: CREATININE 1.2 mg/dL (0.55-1.3)
[2024-05-15 10:49] LABS: EPI CELLS 2 /uL (0-25.1); HYALINE CASTS 0 /uL (0-3.1); URINE APPEARANCE CLEAR; URINE BACTERIA 0 /uL (0-1359); URINE BILIRUBIN NEGATIVE (NEGATIVE); URINE COLOR YELLOW; URINE GLUCOSE (UA) NEGATIVE (NEGATIVE); URINE KETONE NEGATIVE (NEGATIVE); URINE LEUK ESTERASE NEGATIVE (NEGATIVE); URINE NITRITE NEGATIVE (NEGATIVE); URINE PROTEIN NEGATIVE (NEGATIVE); URINE RBC 41 /uL (0-23.9); URINE WBC 2 /uL (0-25.8)
[2024-05-15] MEDS: MUPIROCIN 2% TOPICAL OINTMENT 22 GM TUBE TP SCH (22:07)
[2024-05-16 09:10] LABS: BASO % 0.3 % (0-2.0); EOS % 1.1 % (0-4.5); HEMATOCRIT 30.5 % (35.4-49); HEMOGLOBIN 10.1 GM/dL (11.7-16.9); MCH 32.3 pg (25.7-33.7); MEAN CELL VOLUME 97.9 fl (80-96); MEAN PLT VOLUME 9.3 fl (7.5-11.1); MONO % 6.6 % (3.8-10.2); PLATELET COUNT 157 10^3/uL (134-434); RBC 3.12 M/mm3 (4.00-5.60); RDW 17.1 % (11.9-15.9)
[2024-05-16 09:18] LABS: POTASSIUM 3.7 mmol/L (3.5-5.1)
[2024-05-16 09:23] LABS: CALCIUM 8.5 mg/dL (8.5-10.1)
[2024-05-16 09:27] LABS: CREATININE 1.4 mg/dL (0.55-1.3)
[2024-05-16] MEDS: FUROSEMIDE 40 MG/4 ML INJECTABLE VIAL IVPUSH ONE (10:10)
[2024-05-17 05:34] VITALS: BP 136/78; PULSE 98; RESP 18; TEMP 98.7
== END 2024-05-17 05:45 | DRG 812 ==
LOC: JER 17:08 → JERBED 21:40 → J7W 05-14 00:01
PROVIDERS: ADMIT Internal Medicine; ATTEND Internal Medicine
PROC: 30233N1 Transfusion of Nonautologous Red Blood Cells into Peripheral Vein, Percutaneous Approach (ICD-10-PCS; principal; 2024-05-13)
DX: D64.9 Anemia, unspecified (principal); I50.32 Chronic diastolic (congestive) heart failure; K92.2 Gastrointestinal hemorrhage, unspecified; F41.8 Other specified anxiety disorders; I48.0 Paroxysmal atrial fibrillation; I11.0 Hypertensive heart disease with heart failure; I35.0 Nonrheumatic aortic (valve) stenosis; D50.0 Iron deficiency anemia secondary to blood loss (chronic); L89.152 Pressure ulcer of sacral region, stage 2; E78.5 Hyperlipidemia, unspecified; N40.0 Benign prostatic hyperplasia without lower urinary tract symptoms; E66.9 Obesity, unspecified; Z68.32 Body mass index [BMI] 32.0-32.9, adult
CPT/HCPCS: 36415; 36430; 71045-TC-FY; 80048; 80053; 81003; 82272; 82607; 82728; 82746; 83540; 83550; 84484; 85025; 85610; 85730; 86850; 86900; 86901; 86922; 87086; 87635; 93005; 93010; 97116-GP; 97161-GP; 99285-25; J1756; P9038; P9058